=== PATIENT | male | born 1935 | race Caucasian/White ===

== ENCOUNTER → 2020-05-18 11:03 | Outpatient (BNVA) | payer MEDICARE, SELFPAY | PROVIDERS: Visit Provider Internal Medicine Gastroenterology | DX: K57.30 Diverticulosis of large intestine without perforation or abscess without bleeding (principal) | CPT/HCPCS: Q3014 ==

== ENCOUNTER 2021-06-19 13:24 | Outpatient (REF) | payer MEDICARE, SELFPAY ==
--- NOTE | 2021-06-20 08:19 | MHC.AU.ANO ---
Adult Audiological Evaluation Date of Visit: 06/19/21 Reason for Appointment: Patient has been experiencing hearing difficulty in most daily situations. He finds that he is asking for repetition more frequently. He suspects he may be ready for hearing aids. Does patient feel they have a hearing loss?: Yes If Yes, Which Ear?: Both Ears Ear History: Ear Deformity: None Reported Recent Ear Drainage: None Reported Recent Ear Pain: None Reported Recent Ear Infections: None Reported Ear Infections in Childhood: None Reported History of Ear Wax Buildup: None Reported Previous Ear Surgery: None Reported Bothersome Tinnitus/Ringing/Noises in Ears: None Reported Ear used on the phone: Left Ear Blocked/Full Sensation in Ear(s): None Reported History of occupational noise exposure?: Yes: [employer] History: No Medical History: Medical History: 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 Otoscopy: Right Ear: Unremarkable Left Ear: Unremarkable Hearing Evaluation: Transducer(s) Used: Insert Earphones Method: Conventional Audiometry Stimuli Used: Pure Tones Right Ear: Description of Hearing: Normal sloping to severe sensorineural hearing loss Left Ear: Description of Hearing: Normal sloping to severe sensorineural hearing loss Speech Recognition Threshold (SRT): Method Used: Recorded Lists Stimuli Used: Spondee Words Right Ear: 35 dBHL Left Ear: 30 dBHL Word Discrimination: Method: Recorded Lists Word Lists Used: W-22 Right Ear: 76% at 75 dBHL Left Ear: 60% at 75 dBHL Most Comfortable Level (MCL): Right Ear: 75 dBHL Left Ear: 75 dBHL Recommendations: Audiological re-evaluation in one year. Patient is interested in amplification. His current insurance likely offers a hearing aid benefit, but it cannot be used at our clinic at this time. It is recommended that he contact his insurance company to inquire about their hearing aid benefit program and find a participating clinic. Diagnosis: Primary Diagnosis: H90.3 Bilateral Sensorineural Hearing Loss Signature: Provider: Jordan Haddad, [facility]
== END 2021-06-19 13:25 | disposition home or self-care (01) ==
LOC: HO.SH 13:24
PROVIDERS: Visit Provider Internal Medicine
DX: H90.3 Sensorineural hearing loss, bilateral (principal)
CPT/HCPCS: 92557

== ENCOUNTER → 2021-09-11 14:58 | Outpatient (BNVA) | payer MEDICARE, SELFPAY | PROVIDERS: PCP Internal Medicine; Referring Provider Internal Medicine; Visit Provider Surgery | DX: K40.90 Unilateral inguinal hernia, without obstruction or gangrene, not specified as recurrent (principal) | CPT/HCPCS: 99202 ==

== ENCOUNTER 2023-01-26 08:44 | Inpatient (IN) | payer MEDICARE, SELFPAY ==
[2023-01-26] VITALS (8 sets, daily range): BP systolic 113–153; BP diastolic 52–85; PULSE 63–105; RESP 14–22; TEMP 36.6–37.9; O2SAT 93–96; BMI 28.6; BMI 24.6
--- NOTE | 2023-01-26 | ECG_ITS ---
Test Reason : FALL Blood Pressure : / mmHG Vent. Rate : 097 BPM Atrial Rate : 097 BPM P-R Int : 216 ms QRS Dur : 142 ms QT Int : 386 ms P-R-T Axes : 017 049 038 degrees QTc Int : 490 ms Sinus rhythm with 1st degree A-V block with Premature supraventricular complexes Right bundle branch block Abnormal ECG When compared with ECG of 18-FEB-2020 04:37, Premature ventricular complexes are no longer Present Premature supraventricular complexes are now Present Referred By: Generic ED Physician Electronically Signed By:JAMESON BAKER MD
--- NOTE | ~2023-01-26 | XR_ITS ---
EXAMINATION: XR CHEST CLINICAL INFORMATION: Weakness COMPARISON: September 2016. TECHNIQUE: 2 views of the chest were obtained. FINDINGS: There is an opacity noted in the right lower lobe appearing consistent with an infiltrate. There is linear atelectatic change at the right base appreciated more anteriorly. Pulmonary vascularity unremarkable. No distinct hilar adenopathy. Possible blunting in the posterior sulcus may reflect a small effusion. XR/XR chest 2V IMPRESSION: Right lower lobe infiltrate. Possible blunting in the posterior sulcus may reflect a small effusion. Linear atelectatic changes in the anterior right base.
[2023-01-26 09:34] LABS: MANUAL DIFF FLAG NO
[2023-01-26 09:37] LABS: Basophils Percent Auto 0.1 % (0-2); Hematocrit 47.1 % (42.0-52.0); Hemoglobin 16.3 g/dl (14.0-18.0); Imm Gran Abs Auto 0.03 X10*3/uL (0.00-0.03); Imm Gran Pct Auto 0.3 % (0.0-0.4); Lymphocytes Absolute Auto 0.5 X10*3/uL (1.2-4.9); Mean Corpuscular HGB Conc 34.6 g/dl (31.0-36.0); Mean Corpuscular Hemoglobin 31.4 pg (27.0-33.0); Mean Corpuscular Volume 90.8 fL (80.0-98.0); Mean Platelet Volume 10.8 fL (9.4-12.4); Monocytes Absolute Auto 0.8 X10*3/uL (0.1-1.2); Monocytes Percent Auto 8.6 % (2-11); Neutrophils Absolute Auto 7.7 x10*3/uL (2.0-8.3); Platelet Count 153 X10*3/uL (160-400); Red Blood Count 5.19 X10*6/uL (4.60-5.80); Red Cell Distribution Width 13.9 % (11.0-16.0); White Blood Count 9.1 X10*3/uL (4.8-10.8)
[2023-01-26 09:52] LABS: Alanine Aminotransferase 75 U/L (0-40); Albumin Level 4.3 g/dL (3.5-5.0); Alkaline Phosphatase 97 U/L (39-117); Anion Gap 15 (12-20); Aspartate Amino Transferase 50 U/L (5-37); Bilirubin Total 1.2 mg/dL (0.0-1.0); Blood Urea Nitrogen 46 mg/dL (9-16); Calcium 10.3 mg/dL (8.4-10.2); Carbon Dioxide 26 mmol/L (22-29); Chloride 109 mmol/L (96-108); Creatinine Clr Calc Pharmacy 25.8; Estimated Glomerular Filt Rate 35; Glucose Random 115 mg/dL (60-115); Potassium 4.1 mmol/L (3.3-5.1); Sodium 146 mmol/L (135-145); Total Protein 8.1 g/dL (6.5-8.0)
--- NOTE | 2023-01-26 10:19 | ED_ITS ---
HPI - Fall General Chief Complaint: Fall Stated Complaint: FALL, 4TH FALL THIS WEEK PER EMS Time Seen by Provider: 01/26/23 10:05 Source: patient and EMS Mode of arrival: EMS Limitations: no limitations History of Present Illness HPI Narrative: WEakness, patients neighbor found him on the floor complaint: fall Onset (ago): hour(s) Place fall occurred: home Loss of consciousness: none Related Data Home Medications Medication Instructions Recorded Confirmed aspirin 81 mg tablet,delayed 81 mg PO DAILY 09/11/21 09/11/21 release atorvastatin 80 mg tablet 80 mg PO DAILY 09/11/21 09/11/21 docusate sodium 100 mg capsule 100 mg PO BID 09/11/21 09/11/21 (Colace) multivitamin with folic acid 400 1 tab PO DAILY 09/11/21 09/11/21 mcg tablet (Tab-A-Severo) omega 1-vfk-vhq-fish oil 500 mg 1 cap PO DAILY 09/11/21 09/11/21 (200mg-300mg)-1,000 mg capsule omeprazole 20 mg capsule,delayed 20 mg PO BID 09/11/21 09/11/21 release Allergies Allergy/AdvReac Type Severity Reaction Status Date / Time No Known Allergies Allergy Unknown unknown Verified 01/26/23 08:55 [NO KNOWN ALLERGIES] Review of Systems Review of Systems: Yes all other systems are reviewed and are negative Neurologic: Denies Sensory deficit (Neuro) [facility] Past Medical History Medical History History of CVA (cerebrovascular accident) Right inguinal hernia Surgical History History of colonoscopy Hx of cholecystectomy Family History Family History Father No problems noted. Mother No problems noted. Social History Social History Alcohol intake: never Smoked in Last 30 Days: No Use of substances other than those prescribed or required for medical reasons: No Advance Directives: No Advance Directives Information Provided: No Physical Exam Vital Signs: Vital Signs: Last Vital Signs Temp 98.4 F 01/26/23 11:14 Pulse 92 01/26/23 11:14 Resp 20 01/26/23 11:14 BP 145/73 H 01/26/23 11:14 Pulse Ox 94 01/26/23 11:14 O2 Del Method Room Air 01/26/23 11:14 BMI result Body Mass Index 28.6 Const: Other: thin frail elderly male appearing very dry Orientation/consciousness: oriented to person Limitations: no limitations HEENT: Other: very dry oral mucosa Head: Yes normal to inspection Ears: external ears normal General nose exam: Normal external nose present Throat: Yes posterior oropharynx normal Eyes: General: appearance normal, both eyes and all related structures Neck: Other: supple Neck: Yes normal visual inspection Chest: Chest palpation & inspection: normal inspection of the chest Resp: Auscultation: clear to auscultation bilaterally Cardio: Jugular venous distension: no JVD Rate: regular rate Rhythm: regular rhythm Heart sounds: S1 normal heart sound present and S2 normal heart sound present GI: Inspection: Yes normal to inspection Palpation (GI): Soft to palpation, nontender and No hepatosplenomegaly present Auscultation: normal bowel sounds : General: Yes no CVA tenderness Back/Spine/Pelvis: Back: no CVA tenderness Skin: General skin exam: no rashes or lesions noted Neuro: General: oriented to person Cranial nerves: Yes CN's II-XII intact bilaterally Motor exam (neuro): 5/5 motor strength present throughout Sensory Exam: No Sensory deficit (Neuro) Extrem: General: Yes normal to inspection Psych: Appearance: grossly normal Course Reevaluation(s) Reevaluation #1: patient with pneumonia, renal failure, dehydration. Will admit Time: 11:34 Reevaluation #2: I spent 40 minutes of critical care, with interventions, assessments, speaking to patient, consultants, and family. Time: 11:34 Medications Administered Generic Name Dose Route Start Last Admin Trade Name Freq PRN Reason Stop Dose Admin Sodium Chloride 1,000 mls @ 999 mls/hr 01/26/23 10:30 01/26/23 11:20 Ns IVCONT 01/26/23 12:30 999 mls/hr .Q1H1M [facility] Administration Medical Decision Making Differential Diagnosis Differential Diagnoses: The differential diagnosis associated with the presentation includes (dehydration, rhabdomyolysis, renal failure, pneumonia were all considered) Admission/Observation Consideration of admission/observation: Escalation of care including admission/observation considered (upon arrival this patient who is 87, frail found on floor was immediate considered for admission.) Consult Healthcare Provider Management of the patient was discussed with: Hospitalist Lab Data MDM Lab Attestation statement: I reviewed the patient's lab results. (significant for normal WBC, hemoconcentration, renal failure, elevated CPK, and sodium of 146) 01/26/23 09:29 01/26/23 09:29 Labs: Lab Results 01/26/23 01/26/23 Range/Units 09:29 09:29 WBC 9.1 (4.8-10.8) X10*3/uL RBC 5.19 (4.60-5.80) X10*6/uL Hgb 16.3 (14.0-18.0) g/dl Hct 47.1 (42.0-52.0) % MCV 90.8 (80.0-98.0) fL MCH 31.4 (27.0-33.0) pg MCHC 34.6 (31.0-36.0) g/dl RDW 13.9 (11.0-16.0) % Plt Count 153 L (160-400) X10*3/uL MPV 10.8 (9.4-12.4) fL Immature Gran % (Auto) 0.3 (0.0-0.4) % Neut % (Auto) 85.0 H (45-73) % Lymph % (Auto) 6.0 L (20-40) % [place] % (Auto) 8.6 (2-11) % Eos % (Auto) 0.0 (0-4) % Baso % (Auto) 0.1 (0-2) % Lymph # (Auto) 0.5 L (1.2-4.9) X10*3/uL [place] # (Auto) 0.8 (0.1-1.2) X10*3/uL Eos # (Auto) 0.0 (0.0-0.4) X10*3/uL Baso # (Auto) 0.0 (0.0-0.2) X10*3/uL Abs Immat Gran (auto) 0.03 (0.00-0.03) X10*3/uL Absolute Neuts (auto) 7.7 (2.0-8.3) x10*3/uL Absolute Nucleated RBC 0.000 (0.0-0.012) X10*3/uL Nucleated RBC % (auto) 0.0 (0.0-0.2) /100WBC Sodium 146 H (135-145) mmol/L Potassium 4.1 (3.3-5.1) mmol/L Chloride 109 H (96-108) mmol/L Carbon Dioxide 26 (22-29) mmol/L Anion Gap 15 (12-20) BUN 46 H (9-16) mg/dL Creatinine 1.84 H (0.5-1.4) mg/dL Estim Creat Clear Calc 25.8 Estimated GFR 35 Random Glucose 115 (60-115) mg/dL Calcium 10.3 H (8.4-10.2) mg/dL Total Bilirubin 1.2 H (0.0-1.0) mg/dL AST 50 H (5-37) U/L ALT 75 H (0-40) U/L Alkaline Phosphatase 97 (39-117) U/L Total Creatine Kinase 403 H (38-174) U/L Total Protein 8.1 H (6.5-8.0) g/dL Albumin 4.3 (3.5-5.0) g/dL Independent Interpretation I performed an independent interpretation of an: Plain X-Ray (CXR: RLL infiltrate) Independent Historian Clinical information obtained from an independent historian. History obtained from or confirmed by: EMS Chronic Conditions Patient?s care impacted by: Other (elderly and frail) Discharge Plan Discharge Clinical Impression: Acute dehydration, Acute renal failure, Pneumonia Patient Disposition: Admitted As Inpatient Prescriptions: No Action multivitamin with folic acid [Tab-A-Severo] 400 mcg tablet 1 tab PO DAILY aspirin 81 mg tablet,delayed release (DR/EC) 81 mg PO DAILY atorvastatin 80 mg tablet 80 mg PO DAILY docusate sodium [Colace] 100 mg capsule 100 mg PO BID omeprazole 20 mg capsule,delayed release(DR/EC) 20 mg PO BID omega 0-yjc-yag-fish oil 500-1,000 mg capsule 1 cap PO DAILY
[2023-01-26] MEDS: 0.9 % Sodium Chloride 1,000 ML 999 ML IVCONT ×2 (10:25→11:20)
--- NOTE | 2023-01-26 10:48 | PC.NURSE ---
Pt returned from imagining, currently speaking with son on phone. call guerrero with in reach.
--- NOTE | 2023-01-26 11:15 | PC.NURSE ---
continues to deny any complaints, vss. resting quietly in room watching tb
[2023-01-26] MEDS: cefTRIAXone sodium 1 GM in 0.9 % Sodium Chloride 50 ML IV (11:59)
[2023-01-26] MEDS: Azithromycin 500 MG in 0.9 % Sodium Chloride 250 ML 125 MG IV (12:31)
--- NOTE | 2023-01-26 12:45 | PC.NURSE ---
ambulated to bathroom using walker and one assist with slow steady gait. son at bedside.
[2023-01-26 13:06] LABS: Appearance Urine Clear; Color Urine Dark Yellow; Glucose Urine UA Negative (Negative); Leukocyte Esterase Urine Negative (Negative); Nitrite Urine Negative (Negative); PH 5.5 (5.0-9.0); Specific Gravity - Urine 1.025 (1.005-1.025); UMIC TRIGGER UACC YES; Urine Blood Small (1+) (Negative); Urine Ketones 15 mg/dL (Negative); Urine Protein 100 (2+) mg/dL (Neg-Trace)
--- NOTE | 2023-01-26 13:08 | PHA.MEDREC ---
Pharmacy Consult ? Medication Reconciliation Pharmacy has completed the medication reconciliation. spoke with patient and confirmed medications.
[2023-01-26 13:15] LABS: Bacteria Urine None Seen (None Seen); Granular Casts Urine Present; WBC Urine 0-5 /HPF (0-5)
--- NOTE | 2023-01-26 13:34 | P.HPHOSP_ITS ---
The patient was seen and evaluated with EWA Smith. I agree with her note, assessment and plan with the following. In summary, An 87 years old male with PMH of CVA w Lt side hemiparesis who presents to the hospital after fall. found to be septic 2/2 Pneumonia as seen on CXR associated with Rhabdomyolysis. Sepsis 2/2 CAP. treated with IV Abx pending cultures SAMUEL 2/2 Rhabdo. IV fluids. monitor CK, BMP Rest of evaluations by ENERGY EFFICIENCY SPECIALIST note. History of Present Illness Date of Service: 01/26/23 Attending physician on admission: Carlos Riddle Chief Complaint: falls, weakness 87-year-old male with history of CVA with left sided hemiparesis as sequela of stroke and hyperlipidemia presents to the ED earlier today via EMS after sustaining a fall. The patient reports over the last week, he has had increased weakness in the lower extremities, primarily left lower extremity. He ambulates with a walker at baseline and uses furniture to assist with ambulation but over the last several days has had 3 falls. No head injury, not on blood thinners. No LOC. This morning he reports the left leg gave out from under him and he fell. He is unsure of how long he was on the ground for but states it was not a long period and his neighbor assisted him to his feet. He does live by himself though his son who is in the room reports that they are considering assisted living. He does also endorse a nonproductive cough that has been going on for about 1 week but denies any associated shortness of breath, fevers, chills, chest pain. On arrival, patient mildly tachycardic to 101, tachypneic to 22, elevated temperature of 100.2 degrees, vitals otherwise stable. No hypoxia. There is no leukocytosis. Creatinine 1.84, last known creatinine 0.68 from 3 years ago. BUN 46. Sodium 146, potassium 4.1, chloride 109, CO2 26 LFTs slightly elevated with AST 50, ALT 75, total bilirubin 1.2. Total creatinine kinase 401. Urinalysis unremarkable overall. Chest x-ray shows right lower lobe infiltrate and possible blunting in the posterior sulcus with linear atelectatic changes in the anterior right base. EKG shows sinus rhythm with first-degree AV olu block with PVCs, rate 97, and RBBB, no other ST/T-wave abnormality. In the ED, given IV rocephin and zithromax as well as 2L IVF. Review of Systems Review of Systems: General: No fevers, malaise, unintentional weight loss HEENT: No blurred vision, diplopia. No sore throat, nasal congestion, rhinorrhea, sinus pain, ear pain Cardiovascular: No chest pain, palpitations, or leg edema Respiratory: +cough. No shortness of breath, wheezing GI: No abdominal pain, nausea, vomiting, diarrhea, constipation, melena, hematochezia : No dysuria, hematuria, increased urinary frequency, decreased urinary output MSK: No myalgia, back pain. +falls Neuro: No headaches, paresthesias. +LE weakness Skin: No rashes or lesions [facility] Medical History History of CVA (cerebrovascular accident) Hyperlipemia Right inguinal hernia Family History Father No problems noted. Mother No problems noted. Surgical History History of colonoscopy Hx of cholecystectomy Social History Alcohol intake: never Smoked in Last 30 Days: No Use of substances other than those prescribed or required for medical reasons: No Advance Directives: No Advance Directives Information Provided: No Meds Allergies Allergy/AdvReac Type Severity Reaction Status Date / Time No Known Allergies Allergy Unknown unknown Verified 01/26/23 08:55 [NO KNOWN ALLERGIES] Active Medications: Current Medications Acetaminophen (Acetaminophen 325 Mg Tablet) 650 mg PO Q6H PRN PRN Reason: Pain, Mild (Pain Scale 1-3) Aspirin (Aspirin Enteric Coated 81 Mg Tablet.Dr) 81 mg PO DAILY [facility] Docusate Sodium (Docusate Sodium 100 Mg Capsule) 100 mg PO DAILY PRN PRN Reason: Constipation Heparin Sodium (Porcine) (Heparin Sodium,Porcine 5,000 Unit/Ml Vial) 5,000 unit SUBCUT Q12H [facility] Multivitamins/Vitamin C (Multivitamin Tablet) 1 tab PO DAILY [facility] Ondansetron HCl (Ondansetron Hcl 4 Mg/2 Ml Vial) 4 mg IVPUSH Q8H PRN PRN Reason: Nausea and Vomiting Pharmacy Consult (Consult Rx Perform Med Rec) 1 each MISCELLANE ONCE PRN PRN Reason: Consult order Sodium Chloride (0.9 % Sodium Chloride Flush 3 Ml Syringe) [facility] Medications Medication Instructions Recorded Confirmed Last Taken Type aspirin 81 mg tablet,delayed 81 mg PO DAILY 09/11/21 01/26/23 Unknown History release atorvastatin 80 mg tablet 80 mg PO DAILY 09/11/21 01/26/23 Unknown History multivitamin 1 tab PO DAILY 01/26/23 01/26/23 Unknown History Physical Exam Vital Signs and Narrative: Vital Signs: Last Vital Signs Temp 98.4 F 01/26/23 11:14 Pulse 92 01/26/23 11:14 Resp 20 01/26/23 11:14 BP 145/73 H 01/26/23 11:14 Pulse Ox 94 01/26/23 11:14 O2 Del Method Room Air 01/26/23 11:14 BMI result Body Mass Index 28.6 Constitutional - Awake and Alert, No apparent distress Eyes - PERRLA, EOMI Cardiovascular - S1S2, RRR, No edema Respiratory - Normal lung expansion, Normal respiratory effort, No respiratory distress, rhonchi rll Gastrointestinal - NT / ND; +BS; No rebound or guarding Extremities - no calf tenderness bilaterally, no swelling Skin - Warm/Dry Neurological - Alert & oriented x3, CN II-XII in tact, 5/5 strength BUE and RLE. 3/5 strength LLE Psychological - Appropriate affect Results Labs 01/26/23 09:29 01/26/23 09:29 Labs: Laboratory Results - last 24 hr 01/26/23 01/26/23 01/26/23 09:29 09:29 13:00 MCV 90.8 MCH 31.4 MCHC 34.6 RDW 13.9 Plt Count 153 L MPV 10.8 Immature Gran % (Auto) 0.3 Neut % (Auto) 85.0 H Lymph % (Auto) 6.0 L [place] % (Auto) 8.6 Eos % (Auto) 0.0 Baso % (Auto) 0.1 Lymph # (Auto) 0.5 L [place] # (Auto) 0.8 Eos # (Auto) 0.0 Baso # (Auto) 0.0 Abs Immat Gran (auto) 0.03 Absolute Neuts (auto) 7.7 Absolute Nucleated RBC 0.000 Nucleated RBC % (auto) 0.0 Anion Gap 15 Estim Creat Clear Calc 25.8 Estimated GFR 35 Random Glucose 115 Calcium 10.3 H Total Bilirubin 1.2 H AST 50 H ALT 75 H Alkaline Phosphatase 97 Total Creatine Kinase 403 H Total Protein 8.1 H Albumin 4.3 Urine Color Dark Yellow Urine Appearance Clear Urine pH 5.5 Ur Specific Palmer 1.025 Urine Protein 100 (2+) H Urine Glucose (UA) Negative Urine Ketones 15 Urine Blood Small (1+) H Urine Nitrite Negative Ur Leukocyte Esterase Negative Urine RBC 11-20 H Urine WBC 0-5 Ur Squamous Epith Cells 6-10 Urine Bacteria None Seen Hyaline Casts 11-20 Granular Casts Present Imaging Radiologist's Impressions: Impressions Chest X-Ray 01/26/23 10:45 IMPRESSION: Right lower lobe infiltrate. Possible blunting in the posterior sulcus may reflect a small effusion. Linear atelectatic changes in the anterior right base. 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 and hyperlipidemia to be admitted for acute pneumonia with SAMUEL #Acute RLL pneumonia with sepsis -tachycardic to 101, tachypneic to 22. No leukocytosis. SAMUEL likely r/t hypovolemia, not severe sepsis. No hypotension -IV ceftriaxone and azithromycin -symptomatic management -strep pneumo and legionella ag pending -Follow CBC, BC #Acute kidney injury- likely prerenal due to dehydration -Creat 1.84, BUN 46 -Given 2L IVF in ED -Encourage PO fluids -Avoid nephrotoxins -Follow BMP #Elevated CK- due to fall -2/2 fall, not consistent with rhabdo -Given 2L IVF -Follow CK #Falls -likely 2/2 weakness due to infection -no head injury, no loc -pt eval dvt prophylaxis-heparin DNR/DNI Patient requires inpatient stay at least 2 midnights for management of acute pneumonia with SAMUEL requiring IV antibiotics and IV fluid resuscitation as well as PT evaluation for probable placement to short-term rehab Time Spent With Patient Time: Total time managing care of this patient today ____ minutes. Quality Stroke Does the patient have a stroke diagnosis?: No VTE Prior VTE?: No VTE Risk Level:: Medical - moderate - high VTE Device Contraindication: Treatment Not Indicated VTE Drug Contraindication: N/A - Med Ordered
[2023-01-26] MEDS: Heparin Sodium,Porcine 5,000 UNIT/ML VIAL 5000 UNIT SUBCUT (15:20)
[2023-01-26] MEDS: 0.9 % Sodium Chloride Flush 3 ML SYRINGE IVFLUSH (15:21)
--- NOTE | 2023-01-26 19:03 | PC.NURSE ---
Assumed care at 16:15. Patient alert and oriented x4. Standed and pivoted to the bed from the stretcher. Patient with rash over whole body, reports it is psoriasis. Reports it has been itchy and painful. Creams ordered and not here yet from pharmacy.
--- NOTE | 2023-01-26 19:09 | PC.NURSE ---
Care assumed at 16:30, patient ambulated to BR with two assistants. Patient is confused, only oriented to self and place. Patient unsteady on feet. Cooperative with care.
[2023-01-27] VITALS (8 sets, daily range): BP systolic 121–160; BP diastolic 59–92; PULSE 74–92; RESP 16–22; TEMP 35.9–36.9; O2SAT 93–97
[2023-01-27] MEDS: 0.9 % Sodium Chloride Flush 3 ML SYRINGE IVFLUSH ×3 (00:23→15:51)
[2023-01-27] MEDS: Heparin Sodium,Porcine 5,000 UNIT/ML VIAL 5000 UNIT SUBCUT ×2 (00:24→12:23)
[2023-01-27 07:19] LABS: MANUAL DIFF FLAG NO
[2023-01-27 07:30] LABS: Basophils Percent Auto 0.2 % (0-2); Hematocrit 42.8 % (42.0-52.0); Hemoglobin 14.1 g/dl (14.0-18.0); Imm Gran Abs Auto 0.02 X10*3/uL (0.00-0.03); Imm Gran Pct Auto 0.3 % (0.0-0.4); Lymphocytes Absolute Auto 0.6 X10*3/uL (1.2-4.9); Lymphocytes Percent Auto 9.4 % (20-40); Mean Corpuscular HGB Conc 32.9 g/dl (31.0-36.0); Mean Corpuscular Hemoglobin 30.5 pg (27.0-33.0); Mean Corpuscular Volume 92.6 fL (80.0-98.0); Mean Platelet Volume 11.2 fL (9.4-12.4); Monocytes Absolute Auto 0.5 X10*3/uL (0.1-1.2); Monocytes Percent Auto 7.3 % (2-11); Neutrophils Absolute Auto 5.2 x10*3/uL (2.0-8.3); Neutrophils Percent Auto 82.8 % (45-73); Platelet Count 112 X10*3/uL (160-400); Red Blood Count 4.62 X10*6/uL (4.60-5.80); Red Cell Distribution Width 13.8 % (11.0-16.0); White Blood Count 6.3 X10*3/uL (4.8-10.8)
[2023-01-27] MEDS: Acetaminophen 325 MG TABLET 650 MG PO (07:34)
[2023-01-27] MEDS: Multivitamin TABLET 1 TAB PO (07:36)
[2023-01-27 08:23] LABS: Anion Gap 12 (12-20)
[2023-01-27 08:29] LABS: Blood Urea Nitrogen 35 mg/dL (9-16); Calcium 9.1 mg/dL (8.4-10.2); Carbon Dioxide 23 mmol/L (22-29); Chloride 115 mmol/L (96-108); Creatinine Clr Calc Pharmacy 45.8; Estimated Glomerular Filt Rate > 60; Glucose Random 76 mg/dL (60-115); Potassium 3.7 mmol/L (3.3-5.1); Sodium 146 mmol/L (135-145)
--- NOTE | 2023-01-27 09:42 | MHC.CM.PN ---
IMM 01/27. Pt admitted with pneumonia, SAMUEL, falls. Pt lives with his son, uses a walker. D/C plan to return home with son with new VNA vs STR. Pts son to transport. Copy of HCP requested. Pt does not know the name of his PCP. Pt states he was vax'd for covid.
--- NOTE | 2023-01-27 11:05 | MHC.CLN ---
RE: CONSULT FOR POOR PO PT REPORTS HIS APPETITE IS SO-SO NO PREVIOUS WT HX TO REVIEW PT REPORTS HIS UBW 145# WT 63KG AND 73KG BOTH RECORDED ON 01/26/23 PT NEEDS RE-WEIGHT BUT UNABLE TO OBTAIN PT WAS SITTING IN CHAIR AT BEDSIDE UPON INTERVIEW PT DOES NOT APPEAR EMACIATED OR CACHEXIA PER NURSING ADMISSION ASSESSMENT-BMI WNL DIET RX: REGULAR-APPROPRIATE PT RECEPTIVE TO DRINKING STRAWBERRY ENSURE-WILL ADD OBTAIN RE-WEIGHT
[2023-01-27] MEDS: cefTRIAXone sodium 1 GM in 0.9 % Sodium Chloride 50 ML IV (12:19)
--- NOTE | 2023-01-27 15:15 | HO.PM.IMPN ---
Subjective Subjective Date of Service: 01/27/23 Interval History: Seen and evaluated Feels better reporting cough and dyspnea weaning down O2 Kidney function improving Review of Systems Review of Systems: Yes all other systems are reviewed and are negative Physical Exam Vital Signs: Vital Signs: Last Vital Signs Temp 97.0 F 01/27/23 11:06 Pulse 75 01/27/23 11:06 Resp 20 01/27/23 11:06 BP 121/59 L 01/27/23 11:06 Pulse Ox 94 01/27/23 11:06 O2 Del Method Room Air 01/27/23 11:06 BMI result Body Mass Index 24.6 Const: Other: Constitutional : Awake, interactive, not in distress Neck : Normal inspection, Supple Cardiovascular : RRR, no JVP, no lower extremity edema Respiratory : good bilateral air entry, has crackles lt base Gastrointestinal: soft, lax, Normal bowel sounds, Non tender Skin : Warm, Dry Neurological : Alert & oriented x2, left hemiparesis Objective Data Active Medications Acetaminophen (Acetaminophen 325 Mg Tablet) 650 mg PO Q6H PRN PRN Reason: Pain, Mild (Pain Scale 1-3) Last Admin: 01/27/23 07:34 Dose: 650 mg Documented By: RHIANNA Aspirin (Aspirin Enteric Coated 81 Mg Tablet.Dr) 81 mg PO DAILY [facility] Last Admin: 01/27/23 07:36 Dose: Not Given Documented By: RHIANNA Non-Admin Reason: Patient Refused Docusate Sodium (Docusate Sodium 100 Mg Capsule) 100 mg PO DAILY PRN PRN Reason: Constipation Guaifenesin (Guaifenesin 200 Mg/10 Ml 10 Ml Liquid) 10 ml PO Q6H PRN PRN Reason: Cough Heparin Sodium (Porcine) (Heparin Sodium,Porcine 5,000 Unit/Ml Vial) 5,000 unit SUBCUT Q12H [facility] Last Admin: 01/27/23 12:23 Dose: 5,000 unit Documented By: RHIANNA Ceftriaxone Sodium 1 gm/ (Sodium Chloride) 50 mls @ 100 mls/hr IV Q24H [facility] Last Infusion: 01/27/23 12:50 Dose: 0 mls/hr Documented By: RHIANNA Ibuprofen (Ibuprofen 200 Mg Tablet) 200 mg PO Q6H PRN PRN Reason: Pain, Moderate(Pain Scale 4-6) Multivitamins/Vitamin C (Multivitamin Tablet) 1 tab PO DAILY [facility] Last Admin: 01/27/23 07:36 Dose: 1 tab Documented By: RHIANNA Ondansetron HCl (Ondansetron Hcl 4 Mg/2 Ml Vial) 4 mg IVPUSH Q8H PRN PRN Reason: Nausea and Vomiting Pharmacy Consult (Consult Rx Perform Med Rec) 1 each MISCELLANE ONCE PRN PRN Reason: Consult order Sodium Chloride (0.9 % Sodium Chloride Flush 3 Ml Syringe) 3 ml IVFLUSH QSHIFT [facility] Last Admin: 01/27/23 07:36 Dose: 3 ml Documented By: RHIANNA Labs 01/27/23 06:37 01/27/23 06:37 Labs: Laboratory Results - last 24 hr 01/27/23 01/27/23 06:37 06:37 MCV 92.6 MCH 30.5 MCHC 32.9 RDW 13.8 Plt Count 112 L D MPV 11.2 Immature Gran % (Auto) 0.3 Neut % (Auto) 82.8 H Lymph % (Auto) 9.4 L Cache % (Auto) 7.3 Eos % (Auto) 0.0 Baso % (Auto) 0.2 Lymph # (Auto) 0.6 L Cache # (Auto) 0.5 Eos # (Auto) 0.0 Baso # (Auto) 0.0 Abs Immat Gran (auto) 0.02 Absolute Neuts (auto) 5.2 Absolute Nucleated RBC 0.000 Nucleated RBC % (auto) 0.0 Anion Gap 12 Estim Creat Clear Calc 45.8 Estimated GFR > 60 Random Glucose 76 Calcium 9.1 D Total Creatine Kinase 204 H Microbiology Microbiology Results: Microbiology 01/26/23 11:50 Blood Culture - Preliminary Blood - Venous No growth after 24 hours. 01/26/23 11:39 Blood Culture - Preliminary Blood - Venous No growth after 24 hours. 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 and hyperlipidemia to be admitted for acute pneumonia with SAMUEL # Sepsis 2/2 Acute RLL pneumonia Pending cultures IV ceftriaxone and azithromycin strep pneumo and legionella ag pending Follow CBC, BC #Acute kidney injury likely prerenal due to dehydration Creat improved to 0.9 Encourage PO fluids Avoid nephrotoxins Follow BMP # Hypernatremia 2/2 dehydration encourage PO intake follow BMP #Elevated CK due to fall trended down #Falls likely 2/2 weakness due to infection PT eval dvt prophylaxis-heparin DNR/DNI Patient requires inpatient stay overnight for management of acute pneumonia with SAMUEL requiring IV antibiotics and IV fluid resuscitation as well as PT evaluation for probable placement to short-term rehab Time Spent With Patient Time: Total time managing care of this patient today ____ minutes. Quality Stroke Does the patient have a stroke diagnosis?: No VTE Prior VTE?: No VTE Risk Level:: Medical - moderate - high VTE Device Contraindication: Treatment Not Indicated VTE Drug Contraindication: N/A - Med Ordered
[2023-01-27] MEDS: guaiFENesin 200 MG/10 ML 10 ML LIQUID PO (15:51)
[2023-01-28] MEDS: Heparin Sodium,Porcine 5,000 UNIT/ML VIAL 5000 UNIT SUBCUT ×2 (00:44→13:18)
[2023-01-28] MEDS: 0.9 % Sodium Chloride Flush 3 ML SYRINGE IVFLUSH ×2 (00:48→09:23)
[2023-01-28 03:33] VITALS: BP 154/72; PULSE 86; RESP 20; TEMP 36.1; O2SAT 93
[2023-01-28 07:24] LABS: Anion Gap 10 (12-20); Blood Urea Nitrogen 28 mg/dL (9-16); Calcium 8.9 mg/dL (8.4-10.2); Carbon Dioxide 23 mmol/L (22-29); Chloride 116 mmol/L (96-108); Creatinine Clr Calc Pharmacy 56.9; Estimated Glomerular Filt Rate > 60; Glucose Random 105 mg/dL (60-115); Potassium 3.2 mmol/L (3.3-5.1); Sodium 146 mmol/L (135-145)
[2023-01-28 07:42] VITALS: BP 159/74; PULSE 70; RESP 18; TEMP 36.6; O2SAT 94
[2023-01-28] MEDS: Potassium Chloride Packet 20 MEQ PACKET 40 MEQ PO (09:22)
[2023-01-28] MEDS: Multivitamin TABLET 1 TAB PO (09:23)
[2023-01-28] MEDS: Aspirin Enteric Coated 81 MG TABLET.DR PO (09:23)
[2023-01-28] MEDS: Dextrose 5 % 1,000 ML 125 ML IVCONT (09:24)
[2023-01-28 12:00] VITALS: BP 138/88; PULSE 68; RESP 18; TEMP 37.1; O2SAT 96
[2023-01-28] MEDS: cefTRIAXone sodium 1 GM in 0.9 % Sodium Chloride 50 ML IV (13:17)
--- NOTE | 2023-01-28 14:20 | P.PNIM_ITS ---
Subjective Subjective Date of Service: 01/28/23 Interval History: Seen and evaluated Feels better improving cough and dyspnea weaned down O2 Kidney function improving, having hypernatremia Review of Systems Review of Systems: Yes all other systems are reviewed and are negative Physical Exam Vital Signs: Vital Signs: Last Vital Signs Temp 98.8 F 01/28/23 12:00 Pulse 68 01/28/23 12:00 Resp 18 01/28/23 12:00 BP 138/88 01/28/23 12:00 Pulse Ox 96 01/28/23 12:00 O2 Del Method Room Air 01/28/23 12:00 BMI result Body Mass Index 24.6 Const: Other: Constitutional : Awake, interactive, not in distress Neck : Normal inspection, Supple Cardiovascular : RRR, no JVP, no lower extremity edema Respiratory : good bilateral air entry, has crackles lt base Gastrointestinal: soft, lax, Normal bowel sounds, Non tender Skin : Warm, Dry Neurological : Alert & oriented x2, left hemiparesis Objective Data Active Medications Acetaminophen (Acetaminophen 325 Mg Tablet) 650 mg PO Q6H PRN PRN Reason: Pain, Mild (Pain Scale 1-3) Last Admin: 01/27/23 07:34 Dose: 650 mg Documented By: RHIANNA Aspirin (Aspirin Enteric Coated 81 Mg Tablet.) 81 mg PO DAILY REPLACED BY [facility] Last Admin: 01/28/23 09:23 Dose: 81 mg Documented By: JORGE L Docusate Sodium (Docusate Sodium 100 Mg Capsule) 100 mg PO DAILY PRN PRN Reason: Constipation Guaifenesin (Guaifenesin 200 Mg/10 Ml 10 Ml Liquid) 10 ml PO Q6H PRN PRN Reason: Cough Last Admin: 01/27/23 15:51 Dose: 10 ml Documented By: RHIANNA Heparin Sodium (Porcine) (Heparin Sodium,Porcine 5,000 Unit/Ml Vial) 5,000 unit SUBCUT Q12H REPLACED BY [facility] Last Admin: 01/28/23 13:18 Dose: 5,000 unit Documented By: JORGE L Ceftriaxone Sodium 1 gm/ (Sodium Chloride) 50 mls @ 100 mls/hr IV Q24H REPLACED BY [facility] Last Infusion: 01/28/23 14:17 Dose: 0 mls/hr Documented By: JORGE L Dextrose (D5w) 1,000 mls @ 125 mls/hr IVCONT .Q8H REPLACED BY [facility] Stop: 01/28/23 15:59 Last Admin: 01/28/23 09:24 Dose: 125 mls/hr Documented By: JORGE L Ibuprofen (Ibuprofen 200 Mg Tablet) 200 mg PO Q6H PRN PRN Reason: Pain, Moderate(Pain Scale 4-6) Multivitamins/Vitamin C (Multivitamin Tablet) 1 tab PO DAILY [facility]PLAC[facility] Last Admin: 01/28/23 09:23 Dose: 1 tab Documented By: JORGE L Ondansetron HCl (Ondansetron Hcl 4 Mg/2 Ml Vial) 4 mg IVPUSH Q8H PRN PRN Reason: Nausea and Vomiting Pharmacy Consult (Consult Rx Perform Med Rec) 1 each MISCELLANE ONCE PRN PRN Reason: Consult order Sodium Chloride (0.9 % Sodium Chloride Flush 3 Ml Syringe) 3 ml IVFLUSH QSHIFT REPLACED BY [facility] Last Admin: 01/28/23 09:23 Dose: 3 ml Documented By: JORGE L Labs 01/27/23 06:37 01/28/23 06:10 Labs: Laboratory Results - last 24 hr 01/28/23 06:10 Anion Gap 10 L Estim Creat Clear Calc 56.9 Estimated GFR > 60 Random Glucose 105 Calcium 8.9 Microbiology Microbiology Results: Microbiology 01/26/23 11:50 Blood Culture - Preliminary Blood - Venous No growth after 48 hours. 01/26/23 11:39 Blood Culture - Preliminary Blood - Venous No growth after 48 hours. 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 and hyperlipidemia to be admitted for acute pneumonia with SAMUEL # Sepsis 2/2 Acute RLL pneumonia Pending cultures Continue IV ceftriaxone and azithromycin strep pneumo and legionella ag pending Follow WBCs #Acute kidney injury likely prerenal due to dehydration Creat improved to 0.9 Encourage PO fluids Avoid nephrotoxins Follow BMP # Hypernatremia 2/2 dehydration Start D5W encourage PO intake follow BMP #Elevated CK due to fall trended down #Falls likely 2/2 weakness due to infection PT eval dvt prophylaxis-heparin DNR/DNI Patient requires inpatient stay overnight for management of acute pneumonia with SAMUEL requiring IV antibiotics and IV fluid resuscitation as well as PT evaluation for probable placement to short-term rehab Time Spent With Patient Time: Total time managing care of this patient today ____ minutes. Quality Stroke Does the patient have a stroke diagnosis?: No VTE Prior VTE?: No VTE Risk Level:: Medical - moderate - high VTE Device Contraindication: Treatment Not Indicated VTE Drug Contraindication: N/A - Med Ordered
--- NOTE | 2023-01-28 14:21 | MHC.CM.PN ---
PT gurdeep recommends STR. The patient is interested in rehab at home. Patient lives lives by himself. Patients son provided facility preferences. Referrals have been sent. DP STR via BLS vs home w services. Patient will transport via BLS is dispo STR.
[2023-01-28 15:21] VITALS: BP 148/72; PULSE 71; RESP 20; TEMP 36.3; O2SAT 96
[2023-01-28 19:36] VITALS: BP 147/70; PULSE 75; RESP 16; TEMP 36.5; O2SAT 95
[2023-01-28 23:38] VITALS: BP 153/74; PULSE 75; RESP 18; TEMP 36.2; O2SAT 94
[2023-01-29] VITALS (7 sets, daily range): BP systolic 138–169; BP diastolic 65–75; PULSE 80–87; RESP 16–20; TEMP 36.1–37; O2SAT 93–96
[2023-01-29] MEDS: 0.9 % Sodium Chloride Flush 3 ML SYRINGE IVFLUSH ×3 (00:44→17:54)
[2023-01-29] MEDS: Heparin Sodium,Porcine 5,000 UNIT/ML VIAL 5000 UNIT SUBCUT ×2 (02:12→15:01)
[2023-01-29 06:59] LABS: Hematocrit 40.9 % (42.0-52.0); Hemoglobin 14.2 g/dl (14.0-18.0); Mean Corpuscular HGB Conc 34.7 g/dl (31.0-36.0); Mean Corpuscular Hemoglobin 30.8 pg (27.0-33.0); Mean Corpuscular Volume 88.7 fL (80.0-98.0); Mean Platelet Volume 10.5 fL (9.4-12.4); Platelet Count 143 X10*3/uL (160-400); Red Blood Count 4.61 X10*6/uL (4.60-5.80); Red Cell Distribution Width 13.3 % (11.0-16.0); White Blood Count 6.7 X10*3/uL (4.8-10.8)
[2023-01-29 07:06] LABS: Anion Gap 10 (12-20); Blood Urea Nitrogen 16 mg/dL (9-16); Calcium 8.6 mg/dL (8.4-10.2); Carbon Dioxide 22 mmol/L (22-29); Chloride 111 mmol/L (96-108); Creatinine Clr Calc Pharmacy 60.1; Estimated Glomerular Filt Rate > 60; Glucose Random 96 mg/dL (60-115); Potassium 3.3 mmol/L (3.3-5.1); Sodium 140 mmol/L (135-145)
[2023-01-29] MEDS: Multivitamin TABLET 1 TAB PO (08:40)
[2023-01-29] MEDS: Aspirin Enteric Coated 81 MG TABLET.DR PO (08:40)
[2023-01-29] MEDS: cefTRIAXone sodium 1 GM in 0.9 % Sodium Chloride 50 ML IV (12:34)
--- NOTE | 2023-01-29 15:31 | HO.PM.IMPN ---
Subjective Subjective Date of Service: 01/29/23 Interval History: Seen and evaluated Feels better Sodium corrected waiting placement at SNF weaned down O2 to room air Review of Systems Review of Systems: Yes all other systems are reviewed and are negative Physical Exam Vital Signs: Vital Signs: Last Vital Signs Temp 98.6 F 01/29/23 11:50 Pulse 80 01/29/23 14:04 Resp 16 01/29/23 11:50 BP 138/72 01/29/23 14:04 Pulse Ox 96 01/29/23 14:04 O2 Del Method Room Air 01/29/23 11:50 BMI result Body Mass Index 24.6 Const: Other: Constitutional : Awake, interactive, not in distress Neck : Normal inspection, Supple Cardiovascular : RRR, no JVP, no lower extremity edema Respiratory : good bilateral air entry, less crackles lt base Gastrointestinal: soft, lax, Normal bowel sounds, Non tender Skin : Warm, Dry Neurological : Alert & oriented x2, left hemiparesis Objective Data Active Medications Acetaminophen (Acetaminophen 325 Mg Tablet) 650 mg PO Q6H PRN PRN Reason: Pain, Mild (Pain Scale 1-3) Last Admin: 01/27/23 07:34 Dose: 650 mg Documented By: RHIANNA Aspirin (Aspirin Enteric Coated 81 Mg Tablet.Dr) 81 mg PO DAILY [facility] Last Admin: 01/29/23 08:40 Dose: 81 mg Documented By: CRISTELA Docusate Sodium (Docusate Sodium 100 Mg Capsule) 100 mg PO DAILY PRN PRN Reason: Constipation Guaifenesin (Guaifenesin 200 Mg/10 Ml 10 Ml Liquid) 10 ml PO Q6H PRN PRN Reason: Cough Last Admin: 01/27/23 15:51 Dose: 10 ml Documented By: RHIANNA Heparin Sodium (Porcine) (Heparin Sodium,Porcine 5,000 Unit/Ml Vial) 5,000 unit SUBCUT Q12H [facility] Last Admin: 01/29/23 02:12 Dose: 5,000 unit Documented By: ENZO Ceftriaxone Sodium 1 gm/ (Sodium Chloride) 50 mls @ 100 mls/hr IV Q24H [facility] Last Infusion: 01/29/23 13:46 Dose: 0 mls/hr Documented By: CRISTELA Ibuprofen (Ibuprofen 200 Mg Tablet) 200 mg PO Q6H PRN PRN Reason: Pain, Moderate(Pain Scale 4-6) Multivitamins/Vitamin C (Multivitamin Tablet) 1 tab PO DAILY [facility] Last Admin: 01/29/23 08:40 Dose: 1 tab Documented By: CRISTELA Ondansetron HCl (Ondansetron Hcl 4 Mg/2 Ml Vial) 4 mg IVPUSH Q8H PRN PRN Reason: Nausea and Vomiting Pharmacy Consult (Consult Rx Perform Med Rec) 1 each MISCELLANE ONCE PRN PRN Reason: Consult order Sodium Chloride (0.9 % Sodium Chloride Flush 3 Ml Syringe) 3 ml IVFLUSH QSHIFT [facility] Last Admin: 01/29/23 08:40 Dose: 3 ml Documented By: CRISTELA Labs 01/29/23 06:10 01/29/23 06:10 Labs: Laboratory Results - last 24 hr 01/29/23 01/29/23 06:10 06:10 MCV 88.7 MCH 30.8 MCHC 34.7 RDW 13.3 Plt Count 143 L D MPV 10.5 Absolute Nucleated RBC 0.000 Nucleated RBC % (auto) 0.0 Anion Gap 10 L Estim Creat Clear Calc 60.1 Estimated GFR > 60 Random Glucose 96 Calcium 8.6 Microbiology Microbiology Results: Microbiology 01/26/23 11:50 Blood Culture - Preliminary Blood - Venous No growth after 48 hours. 01/26/23 11:39 Blood Culture - Preliminary Blood - Venous No growth after 48 hours. 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 and hyperlipidemia to be admitted for acute pneumonia with SAMUEL # Sepsis 2/2 Acute RLL pneumonia Negative cultures Continue IV ceftriaxone and azithromycin strep pneumo and legionella ag pending Follow WBCs #Acute kidney injury likely prerenal due to dehydration Creat improved to 0.9 Encourage PO fluids Avoid nephrotoxins Follow BMP # Hypernatremia 2/2 dehydration back to normal, DC D5W encourage PO intake follow BMP #Elevated CK due to fall trended down #Falls likely 2/2 weakness due to infection PT eval dvt prophylaxis-heparin DNR/DNI Patient requires inpatient stay overnight for management of acute pneumonia with SAMUEL requiring IV antibiotics pending placement to short-term rehab Time Spent With Patient Time: Total time managing care of this patient today ____ minutes. Quality Stroke Does the patient have a stroke diagnosis?: No VTE Prior VTE?: No VTE Risk Level:: Medical - moderate - high VTE Device Contraindication: Treatment Not Indicated VTE Drug Contraindication: N/A - Med Ordered
--- NOTE | 2023-01-29 15:56 | MHC.CM.PN ---
IMM 01/27/23 Patient has a bed offer from [facility]. They are waiting for insurance authorization. No auth received today. Patient will dc tomorrow once auth obtained. He will transport via S.
[2023-01-30] MEDS: Heparin Sodium,Porcine 5,000 UNIT/ML VIAL 5000 UNIT SUBCUT ×2 (00:26→12:45)
[2023-01-30 03:11] VITALS: BP 155/70; PULSE 84; RESP 18; TEMP 36.6; O2SAT 94
[2023-01-30 07:14] VITALS: BP 131/62; PULSE 83; RESP 20; TEMP 36.6; O2SAT 93
[2023-01-30] MEDS: Aspirin Enteric Coated 81 MG TABLET.DR PO (08:22)
[2023-01-30] MEDS: Multivitamin TABLET 1 TAB PO (08:22)
[2023-01-30 08:59] VITALS: BP 131/62; PULSE 83; O2SAT 93
--- NOTE | 2023-01-30 10:29 | MHC.CM.PN ---
IMM 01/30/23 Patient is discharged today to [facility] for STR. He will transport via BLS. house furnishings supervisor is scheduled for 3pm.
--- NOTE | 2023-01-30 11:04 | PM.DS ---
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 The patient reports over the last week, he has had increased weakness in the lower extremities, primarily left lower extremity.? He ambulates with a walker at baseline and uses furniture to assist with ambulation but over the last several days has had 3 falls.? No head injury, not on blood thinners. No LOC. This morning he reports the left leg gave out from under him and he fell.? He is unsure of how long he was on the ground for but states it was not a long period and his neighbor assisted him to his feet.? He does live by himself though his son who is in the room reports that they are considering assisted living.? He does also endorse a nonproductive cough that has been going on for about 1 week but denies any associated shortness of breath, fevers, chills, chest pain.? On arrival, patient mildly tachycardic to 101, tachypneic to 22, elevated temperature of 100.2 degrees, vitals otherwise stable.? No hypoxia.? There is no leukocytosis.? Creatinine 1.84, last known creatinine 0.68 from 3 years ago.? BUN 46.? Sodium 146, potassium 4.1, chloride 109, CO2 26 LFTs slightly elevated with AST 50, ALT 75, total bilirubin 1.2.? Total creatinine kinase 401.? Urinalysis unremarkable overall.? Chest x-ray shows right lower lobe infiltrate and possible blunting in the posterior sulcus with linear atelectatic changes in the anterior right base.? EKG shows sinus rhythm with first-degree AV olu block with PVCs, rate 97, and RBBB, no other ST/T-wave abnormality. In the ED, given IV rocephin and zithromax as well as 2L IVF. 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 # patient admitted to medical floor with a diagnosis of Sepsis 2/2 Acute RLL pneumonia, treated with IV ceftriaxone and azithromycin blood cultures came back negative, WBC remained in normal range strep pneumo and legionella ag pending, take cough medication as needed. #Acute kidney injury likely prerenal due to dehydration, Creat improved to 0.9. # Hypernatremia 2/2 dehydration, treated with IV D5W with sodium normalized. #Elevated CK due to fall improved with fluids patient evaluated by Physical therapy they recommend short-term rehab due to poor safety awareness. # mild transaminitis, no abdominal pain tolerating diet, patient on Lipitor will hold Lipitor since LDL 57 recommend to check lipid profile in 4-6 weeks and resume low-dose Lipitor if noted to have elevated LDL and total cholesterol. Time Spent with Patient Time attestation: Total time managing care of this patient today ____ minutes. Discharge coordination time: Greater than 30 minutes Quality: Safe Use of Opioids Does Pt have an Active Cancer Diagnosis on the Problem List?: No Quality: Stroke Does the patient have a stroke diagnosis?: No Physical Exam Vital Signs: Vital Signs: Last Vital Signs Temp 97.8 F 01/30/23 07:14 Pulse 83 01/30/23 08:59 Resp 20 01/30/23 07:14 BP 131/62 01/30/23 08:59 Pulse Ox 93 01/30/23 08:59 O2 Del Method Room Air 01/30/23 07:14 BMI result Body Mass Index 24.6 Const: Other: Constitutional : A wake, interactive, not in distress N mick : Normal inspe ction, Supple Card iovascular : RRR, no JVD, no lower e xtremity edema Res piratory : good bi lateral air entry, ?no rhonchi Gastro intestinal:? soft, Normal bowel soun ds, Non tender Ski n : Warm, Dry Neur ological : Alert & oriented x2, left hemiparesis DS: Data Data Completed and Pending Labs on day of discharge: Preliminary micro results at discharge 01/26/23 11:50 Blood Culture - Preliminary Blood - Venous No growth after 48 hours. 08/14/23 11:39 Blood Culture - Preliminary Blood - Venous No growth after 48 hours. Discharge Plan Discharge Anticipated Discharge Date/Time: 01/30/23 10:56 Patient Disposition: Xfer SNF Discharge Diagnosis: Acute pneumonia Acute kidney injury Hypernatremia Mechanical fall Referrals: [facility] [Outside] - 1 Week Aydee Ferguson MD [Primary Care Provider] - 1 Week Discharge Medications: New guaifenesin 100 mg/5 mL Liquid 200 mg PO Q6H PRN (Reason: Cough) Qty: 473 0RF docusate sodium 100 mg Capsule 100 mg PO DAILY PRN (Reason: Constipation) Qty: 20 0RF cefuroxime axetil 500 mg tablet 500 mg PO Q12H Qty: 4 0RF Continued multivitamin Tablet 1 tab PO DAILY aspirin 81 mg tablet,delayed release (DR/EC) 81 mg PO DAILY Discontinued atorvastatin 80 mg tablet 80 mg PO DAILY Discharge Orders: Discharge Order (Routine); Ordered 01/30/23 Ordered By: Yovany Hartman Diet: Advance to usual diet Activity on Discharge: As tolerated Stand Alone Forms: Patient Portal Discharge page Care Plan Goals: Continue antibiotics Ceftin 500 mg 1 tablet twice daily for 2 more days Physical therapy recommends rehab since patient with decreased safety awareness, requires verbal cues. Lipitor discontinued please follow lipid profile in 4-6 weeks if noted to have elevated LDL start Lipitor Health Concerns: Ensure 1 can bid Plan of Treatment: Outpatient follow-up with primary care physician Assessment: As above
[2023-01-30 12:00] VITALS: BP 146/70; PULSE 81; RESP 20; TEMP 36.8; O2SAT 94
[2023-01-30] MEDS: cefTRIAXone sodium 1 GM in 0.9 % Sodium Chloride 50 ML IV (12:44)
[2023-01-30 18:03] LABS: Strep Pneumo Ag urine Not Detected (Not Detected)
[2023-02-04 04:28] LABS: Legionella Ag Urine Not Detected (Not Detected)
== END 2023-01-30 15:08 | disposition skilled nursing facility (03) | DRG 194 ==
LOC: HO.ED 11:41 → HO.EDOVER 13:35 → HO.IMC 19:23 → HO.S3 01-27 18:14
PROVIDERS: Student in an Organized Health Care Education/Training Program; Admitting Provider Physician Assistant; Emergency Provider Emergency Medicine; PCP Internal Medicine; Visit Provider Hospitalist
DX: J18.9 Pneumonia, unspecified organism (principal); E87.0 Hyperosmolality and hypernatremia; I69.354 Hemiplegia and hemiparesis following cerebral infarction affecting left non-dominant side; N17.9 Acute kidney failure, unspecified; M62.82 Rhabdomyolysis; R29.6 Repeated falls; Z91.81 History of falling; Z66 Do not resuscitate; E86.1 Hypovolemia; E86.0 Dehydration; Z87.891 Personal history of nicotine dependence; Z79.82 Long term (current) use of aspirin; Z79.899 Other long term (current) drug therapy
CPT/HCPCS: 36415; 71046; 80048; 80053; 81001; 82550; 85025; 85027; 87040; 87449; 87899; 93005; 97116; 97162; 97530; 99285; J0456; J0696; J1643

== ENCOUNTER → 2023-01-26 09:20 | Outpatient (BNV) | payer MEDICARE, SELFPAY | PROVIDERS: Admitting Provider Physician Assistant; Emergency Provider Emergency Medicine; Visit Provider Internal Medicine Cardiovascular Disease | DX: I44.0 Atrioventricular block, first degree (principal); R94.31 Abnormal electrocardiogram [ECG] [EKG] | CPT/HCPCS: 93010 ==

== ENCOUNTER → 2023-01-26 13:28 | Outpatient (BNV) | payer MEDICARE, SELFPAY | PROVIDERS: Admitting Provider Physician Assistant; Emergency Provider Emergency Medicine; Visit Provider Physician Assistant | DX: N17.9 Acute kidney failure, unspecified (principal); I69.354 Hemiplegia and hemiparesis following cerebral infarction affecting left non-dominant side; E86.0 Dehydration; J18.9 Pneumonia, unspecified organism | CPT/HCPCS: 99223; 99232; 99233; 99239 ==

== ENCOUNTER 2023-02-12 11:17 | Outpatient (REF) | payer MEDICARE, SELFPAY ==
[2023-02-12 14:19] LABS: MANUAL DIFF FLAG NO
[2023-02-12 14:21] LABS: Basophils Percent Auto 0.5 % (0-2); Eosinophils Absolute Auto 0.1 X10*3/uL (0.0-0.4); Eosinophils Percent Auto 1.7 % (0-4); Hematocrit 47.4 % (42.0-52.0); Hemoglobin 15.7 g/dl (14.0-18.0); Imm Gran Abs Auto 0.02 X10*3/uL (0.00-0.03); Imm Gran Pct Auto 0.3 % (0.0-0.4); Lymphocytes Absolute Auto 1.3 X10*3/uL (1.2-4.9); Lymphocytes Percent Auto 20.2 % (20-40); Mean Corpuscular HGB Conc 33.1 g/dl (31.0-36.0); Mean Corpuscular Hemoglobin 31.2 pg (27.0-33.0); Mean Platelet Volume 10.4 fL (9.4-12.4); Monocytes Absolute Auto 0.5 X10*3/uL (0.1-1.2); Monocytes Percent Auto 8.5 % (2-11); Neutrophils Absolute Auto 4.4 x10*3/uL (2.0-8.3); Neutrophils Percent Auto 68.8 % (45-73); Platelet Count 293 X10*3/uL (160-400); Red Blood Count 5.04 X10*6/uL (4.60-5.80); Red Cell Distribution Width 13.5 % (11.0-16.0); White Blood Count 6.4 X10*3/uL (4.8-10.8)
[2023-02-12 14:39] LABS: Alanine Aminotransferase 17 U/L (0-40); Alkaline Phosphatase 83 U/L (39-117); Anion Gap 11 (12-20); Aspartate Amino Transferase 21 U/L (5-37); Bilirubin Direct 0.2 mg/dL (0.0-0.5); Bilirubin Total 0.6 mg/dL (0.0-1.0); Blood Urea Nitrogen 10 mg/dL (9-16); Calcium 9.9 mg/dL (8.4-10.2); Carbon Dioxide 28 mmol/L (22-29); Chloride 105 mmol/L (96-108); Cholesterol 149 mg/dL (<200); Estimated Glomerular Filt Rate > 60; Glucose Fasting 96 mg/dL (60-99); HDL Cholesterol 54 mg/dL (>40); LDL Cholesterol Calculated 74 mg/dL (<100); Potassium 4.1 mmol/L (3.3-5.1); Sodium 140 mmol/L (135-145); Total Protein 7.4 g/dL (6.5-8.0); Triglycerides 108 mg/dL (<150)
== END 2023-02-12 11:18 | disposition home or self-care (01) ==
LOC: HO.CHCLDS 11:17
PROVIDERS: Visit Provider Internal Medicine
DX: N17.9 Acute kidney failure, unspecified (principal); R79.89 Other specified abnormal findings of blood chemistry
CPT/HCPCS: 36415; 80048; 80061; 80076; 85025

== ENCOUNTER 2023-02-26 09:12 | Outpatient (REF) | payer MEDICARE, SELFPAY ==
--- NOTE | ~2023-02-26 | XR_ITS ---
EXAMINATION: XR CHEST CLINICAL INFORMATION: History right lower lobe pneumonia COMPARISON: Chest radiograph from 01/26/2023 TECHNIQUE: 2 views of the chest were obtained. FINDINGS: Significantly improved right lower lung field radiopacity with a residual amount noted potentially representing atelectasis. Elevation of the right hemidiaphragm. No pneumothorax. Trachea is midline. Cardiac mediastinal silhouette is not enlarged. Aorta demonstrates tortuosity with atherosclerotic calcifications. No large pleural effusion. Degenerative changes of the thoracolumbar spine. Soft tissues are unremarkable. XR/XR chest 2V IMPRESSION: 1. Significantly improved right lower lung field radiopacity with a residual amount noted potentially representing atelectasis. 2. Elevation of the right hemidiaphragm.
== END 2023-02-26 09:13 | disposition home or self-care (01) ==
LOC: HO.HMGCX 09:12
PROVIDERS: PCP Internal Medicine; Visit Provider Internal Medicine
DX: J69.0 Pneumonitis due to inhalation of food and vomit (principal)
CPT/HCPCS: 71046

== ENCOUNTER 2023-03-27 14:44 | Emergency (ER) | payer MEDICARE, SELFPAY ==
--- NOTE | ~2023-03-27 | XR_ITS ---
EXAMINATION: XR CHEST CLINICAL INFORMATION: Recent pneumonia. COMPARISON: Chest x-ray 02/26/2023 TECHNIQUE: 2 views of the chest were obtained. FINDINGS: The lungs are well-expanded and clear of acute pneumonic process. The heart size and pulmonary vascularity is normal. No gross bony abnormality seen. XR/XR chest 2V IMPRESSION: Unremarkable chest exam. .
[2023-03-27 14:49] VITALS: BP 118/62; BP 135/61; PULSE 91; PULSE 94; RESP 18; TEMP 36.9; O2SAT 100; O2SAT 95; BMI 21.5
--- NOTE | 2023-03-27 15:02 | ED_ITS ---
HPI - Altered Mental Status General Chief Complaint: General Medical Stated Complaint: AMS LOWER BACK PAIN FALL YESTERDAY Time Seen by Provider: 03/27/23 15:00 Source: patient and family (son) Mode of arrival: EMS Limitations: altered mental status History of Present Illness HPI narrative: Patient fell and was on ground for a few hours until meals on wheels came. He had a pneumonia a few months ago. According to son he is more confused. Weakness. complaint: altered mental status Onset (ago): hour(s) Timing confirmed by: family member Severity: moderate Related Data Home Medications Medication Instructions Recorded Confirmed aspirin 81 mg tablet,delayed 81 mg PO DAILY 09/11/21 01/26/23 release multivitamin 1 tab PO DAILY 01/26/23 01/26/23 Previous Rx's Medication Instructions Recorded cefuroxime axetil 500 mg tablet 500 mg PO Q12H #4 tabs 01/30/23 docusate sodium 100 mg capsule 100 mg PO DAILY PRN Constipation 01/30/23 #20 caps guaifenesin 100 mg/5 mL oral liquid 200 mg (10 mL) PO Q6H PRN Cough 01/30/23 #473 mL levofloxacin 500 mg tablet 500 mg PO DAILY 7 days #7 tabs 03/27/23 Allergies Allergy/AdvReac Type Severity Reaction Status Date / Time No Known Allergies Allergy Unknown unknown Verified 01/26/23 08:55 [NO KNOWN ALLERGIES] Review of Systems 2 Review of Systems: Yes all other systems are reviewed and are negative [facility] Past Medical History Medical History Hyperlipemia Right inguinal hernia History of CVA (cerebrovascular accident) Surgical History Hx of cholecystectomy History of colonoscopy Family History Family History Father No problems noted. Mother No problems noted. Social History Social History Household Members: None Housing: House Do you presently have visiting nurse or other home services: No Alcohol intake: never Patient Tobacco Use Status: Former Tobacco user Tobacco use type: Cigarette Advance Directives: No Advance Directives Information Provided: No service: No Physical Exam ED Vital Signs: Vital Signs - 24 hr 03/27/23 14:49 03/27/23 17:28 03/27/23 20:29 Temperature 98.5 F 97.9 F 98.3 F Pulse Rate 94 100 76 Respiratory Rate 18 20 18 Blood Pressure 135/61 151/76 H 146/70 H Pulse Oximetry 95 95 98 Oxygen Delivery Method Room Air Room Air Room Air BMI result Body Mass Index 21.5 Course Reevaluation(s) Reevaluation #1: Patient looking better after hydration will dc home Time: 21:20 Reevaluation #2: xray does show right lower lobe infiltrate will give po levaquin. patient not hypoxic Time: 21:42 Medications Administered Discontinued Medications Generic Name Dose Route Start Last Admin Trade Name Freq PRN Reason Stop Dose Admin Sodium Chloride 1,000 mls @ 500 mls/hr 03/27/23 15:30 03/27/23 17:49 Ns IVCONT 03/27/23 17:29 Infused .Q2H [place] Infusion Medical Decision Making Differential Diagnosis Differential Diagnoses: The differential diagnosis associated with the presentation includes (Urinary tract infection, dehydration, renal failure, pneumonia were all considered) Admission/Observation Consideration of admission/observation: Escalation of care including admission/observation considered (upon arrival patient was considered for admission) Lab Data MDM Lab Attestation statement: I reviewed the patient's lab results. (BuN high consistent with dehydration, urine specific gravity high as well) 03/27/23 15:38 03/27/23 15:38 Labs: Lab Results 03/27/23 03/27/23 Range/Units 15:38 17:31 WBC 10.8 (4.8-10.8) X10*3/uL RBC 4.56 L (4.60-5.80) X10*6/uL Hgb 14.2 (14.0-18.0) g/dl Hct 41.5 L (42.0-52.0) % MCV 91.0 (80.0-98.0) fL MCH 31.1 (27.0-33.0) pg MCHC 34.2 (31.0-36.0) g/dl RDW 14.0 (11.0-16.0) % Plt Count 142 L D (160-400) X10*3/uL MPV 10.2 (9.4-12.4) fL Immature Gran % (Auto) 0.3 (0.0-0.4) % Neut % (Auto) 87.4 H (45-73) % Lymph % (Auto) 4.3 L (20-40) % [place] % (Auto) 7.9 (2-11) % Eos % (Auto) 0.0 (0-4) % Baso % (Auto) 0.1 (0-2) % Lymph # (Auto) 0.5 L (1.2-4.9) X10*3/uL [place] # (Auto) 0.9 (0.1-1.2) X10*3/uL Eos # (Auto) 0.0 (0.0-0.4) X10*3/uL Baso # (Auto) 0.0 (0.0-0.2) X10*3/uL Abs Immat Gran (auto) 0.03 (0.00-0.03) X10*3/uL Absolute Neuts (auto) 9.5 H (2.0-8.3) x10*3/uL Absolute Nucleated RBC 0.000 (0.0-0.012) X10*3/uL Nucleated RBC % (auto) 0.0 (0.0-0.2) /100WBC Sodium 141 (135-145) mmol/L Potassium 4.2 (3.3-5.1) mmol/L Chloride 108 (96-108) mmol/L Carbon Dioxide 23 (22-29) mmol/L Anion Gap 14 (12-20) BUN 23 H (9-16) mg/dL Creatinine 0.92 (0.5-1.4) mg/dL Estim Creat Clear Calc 52.3 Estimated GFR > 60 Random Glucose 114 (60-115) mg/dL Calcium 9.7 (8.4-10.2) mg/dL Total Bilirubin 1.1 H (0.0-1.0) mg/dL Direct Bilirubin 0.5 (0.0-0.5) mg/dL AST 35 (5-37) U/L ALT 23 (0-40) U/L Alkaline Phosphatase 67 (39-117) U/L Total Protein 6.7 (6.5-8.0) g/dL Albumin 3.7 (3.5-5.0) g/dL Urine Color Dark Yellow Urine Appearance Clear Urine pH 5.5 (5.0-9.0) Ur Specific [place] 1.025 (1.005-1.025) Urine Protein 30 (1+) H (Neg-Trace) mg/dL Urine Glucose (UA) Negative (Negative) mg/dL Urine Ketones 15 (Negative) mg/dL Urine Blood Negative (Negative) Urine Nitrite Negative (Negative) Ur Leukocyte Esterase Negative (Negative) Urine RBC 0-2 (0-2) /HPF Urine WBC 0-5 (0-5) /HPF Ur Squamous Epith Cells 0-2 (0-2) /HPF Urine Bacteria None Seen (None Seen) Hyaline Casts 3-5 (0-2) /LPF Independent Interpretation I performed an independent interpretation of an: Plain X-Ray (CXR: right lower lobe infiltrate) Independent Historian Clinical information obtained from an independent historian. History obtained from or confirmed by: Other (son) External Record Review External record reviewed: Inpatient record Chronic Conditions Patient?s care impacted by: Other (prior CVA) Discharge Plan Discharge Clinical Impression: Acute dehydration, Weakness, Pneumonia Patient Disposition: Home, Self-Care Instructions: Dehydration (ED) Prescriptions: New levofloxacin 500 mg tablet 500 mg PO DAILY 7 Days Qty: 7 0RF No Action multivitamin Tablet 1 tab PO DAILY guaifenesin 100 mg/5 mL Liquid 200 mg PO Q6H PRN (Reason: Cough) Qty: 473 0RF docusate sodium 100 mg Capsule 100 mg PO DAILY PRN (Reason: Constipation) Qty: 20 0RF cefuroxime axetil 500 mg tablet 500 mg PO Q12H Qty: 4 0RF aspirin 81 mg tablet,delayed release (DR/EC) 81 mg PO DAILY Referrals: Aydee Ferguson MD [Primary Care Provider] - 5 days
[2023-03-27] MEDS: 0.9 % Sodium Chloride 1,000 ML 500 ML IVCONT (15:39)
--- NOTE | 2023-03-27 15:40 | PC.NURSE ---
IV inserted, 20L AC. Labs drawn. fluids running per AUG. vitals stable. urine sample pending. see triage note
[2023-03-27 15:46] LABS: MANUAL DIFF FLAG NO
[2023-03-27 15:51] LABS: Basophils Percent Auto 0.1 % (0-2); Hematocrit 41.5 % (42.0-52.0); Hemoglobin 14.2 g/dl (14.0-18.0); Imm Gran Abs Auto 0.03 X10*3/uL (0.00-0.03); Imm Gran Pct Auto 0.3 % (0.0-0.4); Lymphocytes Absolute Auto 0.5 X10*3/uL (1.2-4.9); Lymphocytes Percent Auto 4.3 % (20-40); Mean Corpuscular HGB Conc 34.2 g/dl (31.0-36.0); Mean Corpuscular Hemoglobin 31.1 pg (27.0-33.0); Mean Platelet Volume 10.2 fL (9.4-12.4); Monocytes Absolute Auto 0.9 X10*3/uL (0.1-1.2); Monocytes Percent Auto 7.9 % (2-11); Neutrophils Absolute Auto 9.5 x10*3/uL (2.0-8.3); Neutrophils Percent Auto 87.4 % (45-73); Platelet Count 142 X10*3/uL (160-400); Red Blood Count 4.56 X10*6/uL (4.60-5.80); White Blood Count 10.8 X10*3/uL (4.8-10.8)
[2023-03-27 16:03] LABS: Alanine Aminotransferase 23 U/L (0-40); Albumin Level 3.7 g/dL (3.5-5.0); Alkaline Phosphatase 67 U/L (39-117); Anion Gap 14 (12-20); Aspartate Amino Transferase 35 U/L (5-37); Bilirubin Direct 0.5 mg/dL (0.0-0.5); Bilirubin Total 1.1 mg/dL (0.0-1.0); Blood Urea Nitrogen 23 mg/dL (9-16); Calcium 9.7 mg/dL (8.4-10.2); Carbon Dioxide 23 mmol/L (22-29); Chloride 108 mmol/L (96-108); Creatinine Clr Calc Pharmacy 52.3; Estimated Glomerular Filt Rate > 60; Glucose Random 114 mg/dL (60-115); Potassium 4.2 mmol/L (3.3-5.1); Sodium 141 mmol/L (135-145); Total Protein 6.7 g/dL (6.5-8.0)
[2023-03-27 17:28] VITALS: BP 151/76; PULSE 100; RESP 20; TEMP 36.6; O2SAT 95
--- NOTE | 2023-03-27 17:30 | PC.NURSE ---
urine collected via bedside stand with urinal - pt unsteady on feet and needs stand by assist.
[2023-03-27 17:55] LABS: Appearance Urine Clear; Color Urine Dark Yellow; Glucose Urine UA Negative (Negative); Leukocyte Esterase Urine Negative (Negative); Nitrite Urine Negative (Negative); PH 5.5 (5.0-9.0); Specific Gravity - Urine 1.025 (1.005-1.025); UMIC TRIGGER UACC YES; Urine Blood Negative (Negative); Urine Ketones 15 mg/dL (Negative); Urine Protein 30 (1+) mg/dL (Neg-Trace)
[2023-03-27 18:10] LABS: Bacteria Urine None Seen (None Seen); RBC Urine 0-2 /HPF (0-2); Squamous Epithelial Cell Urine 0-2 /HPF (0-2); WBC Urine 0-5 /HPF (0-5)
--- NOTE | 2023-03-27 20:24 | MHC.EDTECH ---
Patient given ham sandwhich and water
[2023-03-27 20:29] VITALS: BP 146/70; PULSE 76; RESP 18; TEMP 36.8; O2SAT 98
--- NOTE | 2023-03-27 21:49 | PC.NURSE ---
LVM to pts sonLance, as pt is ready to be discharged.
[2023-03-27] MEDS: levoFLOXacin 500 MG TABLET PO (21:57)
--- NOTE | 2023-03-27 23:58 | PC.NURSE ---
TC with pts son Lance, who states will come and roll picker pt as pt is ready to be discharged.
[2023-03-28 00:18] VITALS: BP 132/62; PULSE 90; RESP 16; TEMP 35.9; O2SAT 96
[2023-03-28 05:04] VITALS: BP 114/54; PULSE 87; RESP 12; TEMP 36.5; O2SAT 94
--- NOTE | 2023-03-28 05:08 | HO.SKINPHOTO ---
Barrier cream applied to the area. MD notified. Location: Right lower gluteal Category: Ulcer Stage: 2
--- NOTE | 2023-03-28 05:43 | PC.NURSE ---
LVM to pts son regarding pt being discharged.
[2023-03-28 06:14] VITALS: BP 140/65; PULSE 86; RESP 6; TEMP 36.9; O2SAT 94
--- NOTE | 2023-03-28 06:40 | PC.NURSE ---
another attempt to reach son to p/u pt. no answer
--- NOTE | 2023-03-28 09:05 | PC.NURSE ---
patient son and nephew came to pick patient up, d/c instructions explained to jenifer (son).
== END 2023-03-28 09:06 | disposition home or self-care (01) ==
PROVIDERS: Emergency Medicine; Emergency Provider Emergency Medicine Emergency Medical Services; PCP Internal Medicine
DX: J18.9 Pneumonia, unspecified organism (principal); E86.0 Dehydration; R53.1 Weakness; L89.329 Pressure ulcer of left buttock, unspecified stage; E78.5 Hyperlipidemia, unspecified; Z87.891 Personal history of nicotine dependence; Z86.73 Personal history of transient ischemic attack (TIA), and cerebral infarction without residual deficits; Z79.82 Long term (current) use of aspirin; Z79.899 Other long term (current) drug therapy
CPT/HCPCS: 36415; 71046; 80048; 80076; 81001; 85025; 96360; 96361; 99284

== ENCOUNTER 2023-10-26 10:14 | Outpatient (REF) | payer MEDICARE, SELFPAY ==
[2023-10-26 14:34] LABS: MANUAL DIFF FLAG NO
[2023-10-26 14:43] LABS: Basophils Percent Auto 0.3 % (0-2); Eosinophils Absolute Auto 0.2 X10*3/uL (0.0-0.4); Eosinophils Percent Auto 3.4 % (0-4); Hematocrit 44.6 % (42.0-52.0); Hemoglobin 15.2 g/dl (14.0-18.0); Imm Gran Abs Auto 0.01 X10*3/uL (0.00-0.03); Imm Gran Pct Auto 0.2 % (0.0-0.4); Lymphocytes Absolute Auto 1.4 X10*3/uL (1.2-4.9); Lymphocytes Percent Auto 23.5 % (20-40); Mean Corpuscular HGB Conc 34.1 g/dl (31.0-36.0); Mean Corpuscular Hemoglobin 31.3 pg (27.0-33.0); Mean Platelet Volume 10.6 fL (9.4-12.4); Monocytes Absolute Auto 0.4 X10*3/uL (0.1-1.2); Monocytes Percent Auto 6.7 % (2-11); Neutrophils Absolute Auto 3.8 x10*3/uL (2.0-8.3); Neutrophils Percent Auto 65.9 % (45-73); Platelet Count 170 X10*3/uL (160-400); Red Blood Count 4.85 X10*6/uL (4.60-5.80); Red Cell Distribution Width 13.4 % (11.0-16.0); White Blood Count 5.8 X10*3/uL (4.8-10.8)
[2023-10-26 15:08] LABS: Alanine Aminotransferase 10 U/L (0-40); Albumin Level 3.9 g/dL (3.5-5.0); Alkaline Phosphatase 50 U/L (39-117); Anion Gap 14 (12-20); Aspartate Amino Transferase 17 U/L (5-37); Bilirubin Total 0.5 mg/dL (0.0-1.0); Blood Urea Nitrogen 13 mg/dL (9-16); Calcium 9.4 mg/dL (8.4-10.2); Carbon Dioxide 26 mmol/L (22-29); Chloride 107 mmol/L (96-108); Cholesterol 163 mg/dL (<200); Estimated Glomerular Filt Rate > 60; Glucose Random 121 mg/dL (60-115); HDL Cholesterol 55 mg/dL (>40); LDL Cholesterol Calculated 92 mg/dL (<100); Potassium 3.8 mmol/L (3.3-5.1); Sodium 143 mmol/L (135-145); Triglycerides 82 mg/dL (<150)
[2023-10-26 15:30] LABS: TSH reflex Free T4 2.79 uIU/mL (0.32-4.0)
[2023-10-29 05:59] LABS: Zinc 54 mcg/dL (60-130)
[2023-11-01 16:54] LABS: IGF-1 (Somatomedin C) 90 ng/mL (34-246); IGF-1 Z Score (Male) -0.2 SD (-2.0 - +2.0)
== END 2023-10-26 10:15 | disposition home or self-care (01) ==
LOC: HO.CHCLDS 10:14
PROVIDERS: Visit Provider Internal Medicine
DX: R63.4 Abnormal weight loss (principal); Z86.73 Personal history of transient ischemic attack (TIA), and cerebral infarction without residual deficits
CPT/HCPCS: 36415; 80053; 80061; 84134; 84305; 84443; 84630; 85025

== ENCOUNTER 2024-05-23 12:16 | Emergency (ER) | payer MEDICARE, SELFPAY ==
--- NOTE | ~2024-05-23 | CT_ITS ---
EXAMINATION: CT HEAD WITHOUT CONTRAST CT CERVICAL SPINE WITHOUT CONTRAST CLINICAL INFORMATION: Fall. Pain. COMPARISON: None available. TECHNIQUE: Contiguous axial imaging was performed from the skull base to vertex without intravenous administration of contrast. Contiguous axial CT images of the cervical spine were obtained without contrast. Sagittal and coronal reformats were provided and reviewed. This CT examination was performed using dose optimization techniques as appropriate, variously including the following: *Automated exposure control *Adjustment of mA and/or kV according to patient size (this includes techniques or standardized protocols for targeted exams where dose is matched to indication/reason for exam; i.e. extremities or head) *Use of iterative reconstruction technique DLP: 1105 mGy-cm FINDINGS: HEAD: There is no evidence of acute intracranial hemorrhage or territorial infarction. No abnormal mass effect or midline shift is seen. Galvan to white matter differentiation is well preserved. No extra-axial fluid collections are identified. Prominence of the ventricles and sulci, consistent with diffuse atrophy. Hypoattenuation of the periventricular white matter. The osseous structures and soft tissues are normal. The mastoid air cells and visualized portions of the paranasal sinuses are well aerated. CERVICAL SPINE: Cervical lordosis is maintained. Minimal grade 1 anterolisthesis of C4 on C5 and C5 on C6. No acute fracture or subluxation. No loss of vertebral body height. Loss of intervertebral disc height with endplate degenerative changes, most severe at C6-C7. Severe multilevel bilateral facet arthropathy. No lytic or blastic osseous lesion. Unremarkable prevertebral soft tissues. No abnormal soft tissue mass or fluid collection. Thyroid within normal limits. Visualized lung apices are clear. [id number] multilevel bilateral neural foraminal stenosis. CT/CT cervical spine wo IV con IMPRESSION: HEAD: No acute intracranial hemorrhage or mass effect. Diffuse atrophy and chronic microvascular ischemic disease. CERVICAL SPINE: No acute fracture or subluxation. Minimal grade 1 anterolisthesis of C4 on C5 and C5 on C6. Multilevel degenerative disc disease and bilateral facet arthropathy with mild to moderate multilevel bilateral neural foraminal stenosis. Electronically signed by: Jhonatan Storey MD 05/23/2024 05:06 PM [facility] [place] Workstation: -[id number]
--- NOTE | ~2024-05-23 | CT_ITS ---
EXAMINATION: CT HEAD WITHOUT CONTRAST CT CERVICAL SPINE WITHOUT CONTRAST CLINICAL INFORMATION: Fall. Pain. COMPARISON: None available. TECHNIQUE: Contiguous axial imaging was performed from the skull base to vertex without intravenous administration of contrast. Contiguous axial CT images of the cervical spine were obtained without contrast. Sagittal and coronal reformats were provided and reviewed. This CT examination was performed using dose optimization techniques as appropriate, variously including the following: *Automated exposure control *Adjustment of mA and/or kV according to patient size (this includes techniques or standardized protocols for targeted exams where dose is matched to indication/reason for exam; i.e. extremities or head) *Use of iterative reconstruction technique DLP: 1105 mGy-cm FINDINGS: HEAD: There is no evidence of acute intracranial hemorrhage or territorial infarction. No abnormal mass effect or midline shift is seen. Galvan to white matter differentiation is well preserved. No extra-axial fluid collections are identified. Prominence of the ventricles and sulci, consistent with diffuse atrophy. Hypoattenuation of the periventricular white matter. The osseous structures and soft tissues are normal. The mastoid air cells and visualized portions of the paranasal sinuses are well aerated. CERVICAL SPINE: Cervical lordosis is maintained. Minimal grade 1 anterolisthesis of C4 on C5 and C5 on C6. No acute fracture or subluxation. No loss of vertebral body height. Loss of intervertebral disc height with endplate degenerative changes, most severe at C6-C7. Severe multilevel bilateral facet arthropathy. No lytic or blastic osseous lesion. Unremarkable prevertebral soft tissues. No abnormal soft tissue mass or fluid collection. Thyroid within normal limits. Visualized lung apices are clear. [id number] multilevel bilateral neural foraminal stenosis. CT/CT head/brain wo IV con IMPRESSION: HEAD: No acute intracranial hemorrhage or mass effect. Diffuse atrophy and chronic microvascular ischemic disease. CERVICAL SPINE: No acute fracture or subluxation. Minimal grade 1 anterolisthesis of C4 on C5 and C5 on C6. Multilevel degenerative disc disease and bilateral facet arthropathy with mild to moderate multilevel bilateral neural foraminal stenosis. Electronically signed by: Jhonatan Storey MD 05/23/2024 05:06 PM [facility] [place] Workstation: [id number]
[2024-05-23 12:34] VITALS: BP 148/70; PULSE 82; O2SAT 96
--- NOTE | 2024-05-23 12:35 | PC.NURSE ---
Ride home will be [facility] [phone]
[2024-05-23 12:52] VITALS: BP 158/66; PULSE 70; RESP 16; TEMP 36.9; O2SAT 97; BMI 22.6
[2024-05-23 12:54] VITALS: RESP 16; O2SAT 97
[2024-05-23 14:29] VITALS: BP 143/84; PULSE 76; RESP 16; O2SAT 98
--- NOTE | 2024-05-23 15:22 | PC.NURSE ---
No acute changes, pt to and from CT scan without issue
--- NOTE | 2024-05-23 15:53 | ED.FALL ---
HPI - Fall General Chief Complaint: Fall Stated Complaint: [facility] FALL THURSDAY,HEAD LAC,-THIN,LLE WEAK PER EMS Time Seen by Provider: 05/23/24 15:52 Source: patient, EMS and old records reviewed Mode of arrival: EMS Limitations: no limitations History of Present Illness ED Provider: MIN VELARDE Narrative: 88 yo male with PMH of pneumonia, CVA not on thinners, longstanding use of cane and recurrent issues with L leg giving out was putting his groceries away when his leg gave out and he hit his head against the wall. No LOC. no prolonged dowtime has no complaints other than avulsion flap on the scalp. he reports no trunk or ext injury. he had no prolonged downtime MD complaint: fall Onset (ago): hour(s) ([employer]) Fall from: standing Fall witnessed: no Place fall occurred: home Loss of consciousness: none Prolonged down time: no Symptoms prior to fall: none Context: tripped/slipped Location of injury: head Severity: mild Associated symptoms (after fall): denies Related Data Home Medications ?Medication ?Instructions ?Recorded ?Confirmed aspirin 81 mg tablet,delayed 81 mg PO DAILY 09/11/21 01/26/23 release multivitamin 1 tab PO DAILY 01/26/23 01/26/23 Previous Rx's ?Medication ?Instructions ?Recorded cefuroxime axetil 500 mg tablet 500 mg PO Q12H #4 tabs 01/30/23 docusate sodium 100 mg capsule 100 mg PO DAILY PRN Constipation 01/30/23 #20 caps guaifenesin 100 mg/5 mL oral liquid 200 mg (10 mL) PO Q6H PRN Cough 01/30/23 #473 mL levofloxacin 500 mg tablet 500 mg PO DAILY 7 days #7 tabs 03/27/23 Allergies Allergy/AdvReac Type Severity Reaction Status Date / Time No Known Allergies Allergy Unknown unknown Verified 05/23/24 12:53 [NO KNOWN ALLERGIES] Review of Systems Review of Systems: Constitutional : No Fever, No Chills, No Fatigue ENT/Mouth : No sore throat, No Rhinorrhea Eyes: No Eye Pain, No Swelling, No Redness Cardiovascular : No Chest Pain, No SOB, No Dyspnea on Exertion Respiratory : No Cough, No Sputum Gastrointestinal : No Nausea, No Vomiting, No Diarrhea, No abdominal Pain Genitourinary : No Dysuria, No Urinary Frequency, No Hematuria, Musculoskeletal : No joint pain, No Myalgias, No Joint Swelling Skin : No Skin Lesions, No rash, pos laceration Neuro : No Weakness, No Numbness, No Dizziness, no Headache All other systems reviewed and are negative [facility] Past Medical History Attestation statement: The following information was validated with the patient. Source: old records reviewed Medical History Hyperlipemia Right inguinal hernia History of CVA (cerebrovascular accident) Surgical History Hx of cholecystectomy History of colonoscopy Family History Family History Father No problems noted. Mother No problems noted. Social History Social History Household Members: None Housing: House Do you presently have visiting nurse or other home services: No Alcohol intake: never Patient Tobacco Use Status: Former Tobacco user Tobacco use type: Cigarette Smoked in Last 30 Days: No Use of substances other than those prescribed or required for medical reasons: No Advance Directives: No Advance Directives Information Provided: Yes service: No Physical Exam Vital Signs: Vital Signs: Last Vital Signs Temp 98.4 F 05/23/24 12:52 Pulse 76 05/23/24 14:29 Resp 16 05/23/24 14:29 BP 143/84 H 05/23/24 14:29 Pulse Ox 98 05/23/24 14:29 O2 Del Method Room Air 05/23/24 14:29 BMI result Body Mass Index 22.6 Appearance: Alert. Oriented X3. No acute distress. Eyes: Pupils equal, round and reactive to light. ENT: Pharynx normal. top of L scalp small 2cm superficial avulsion flap noted no subq exposed Neck: Normal inspection. Neck supple. CVS: Normal heart rate and rhythm. Pulses normal. Respiratory: No respiratory distress. Breath sounds normal. Abdomen: Soft and nontender. Skin: Skin warm and dry. Normal skin color. Normal skin turgor. Extremities: No lower extremity edema. No calf ttp Neuro: Oriented X 3. No motor deficit. No sensory deficit. Procedures Laceration Laceration 1: Site: scalp Side (If applicable): left Size (cm): 2 Description: linear Depth: simple, single layer Pre-repair: wound explored, irrigated extensively and deep structures intact Skin layer closed with: other (exofin) Medical Decision Making Medical Decision Making MDM Narrative: 88 yo male with PMH of pneumonia, CVA not on thinners, HLD, and longstanding use of cane and recurrent issues with L leg giving out now here with mechanical trip and fall hit head on wall. He is GCS 15 denies LOC, no prolonged downtime. At this time CT head and Cspine ordered given avulsion area will repair with exofin. Differential Diagnosis Differential Diagnoses: The differential diagnosis associated with the presentation includes head trauma, laceration, abrasion Admission/Observation Consideration of admission/observation: Escalation of care including admission/observation considered GCS 15 steady gait with walker stable for DC Independent Interpretation I performed an independent interpretation of an: CT Scan (no trauma) Radiology Impression Discussion of test interpretation with radiology: I have reviewed the radiologist's reading. Independent Historian Clinical information obtained from an independent historian. History obtained from or confirmed by: EMS External Record Review External record reviewed: Outpatient record Discharge Plan Discharge Clinical Impression: Head injury Qualifiers: Encounter type: initial encounter Qualified Code(s): S09.90XA - Unspecified injury of head, initial encounter Laceration of scalp Qualifiers: Encounter type: initial encounter Qualified Code(s): S01.01XA - Laceration without foreign body of scalp, initial encounter Patient Disposition: Home, Self-Care Instructions: Head Injury (ED), Laceration (ED), Skin Adhesive Care (ED) Additional Instructions: okay to wash area in 48 hours monitor for redness, swelling, yellow drainage or fevers please return any time for vomiting, severe headaches, confusion CT/CT head/brain wo IV con IMPRESSION: HEAD: No acute intracranial hemorrhage or mass effect. Diffuse atrophy and chronic microvascular ischemic disease. CERVICAL SPINE: No acute fracture or subluxation. Minimal grade 1 anterolisthesis of C4 on C5 and C5 on C6. Multilevel degenerative disc disease and bilateral facet arthropathy with mild to moderate multilevel bilateral neural foraminal stenosis. Prescriptions: No Action multivitamin Tablet 1 tab PO DAILY guaifenesin 100 mg/5 mL Liquid 200 mg PO Q6H PRN (Reason: Cough) Qty: 473 0RF docusate sodium 100 mg Capsule 100 mg PO DAILY PRN (Reason: Constipation) Qty: 20 0RF cefuroxime axetil 500 mg tablet 500 mg PO Q12H Qty: 4 0RF levofloxacin 500 mg tablet 500 mg PO DAILY 7 Days Qty: 7 0RF aspirin 81 mg tablet,delayed release (DR/EC) 81 mg PO DAILY Print Language: Serbian
[2024-05-23 18:49] VITALS: BP 156/87; PULSE 84; RESP 16; TEMP -17.7; TEMP 0; O2SAT 95
--- OUTSIDE RECORDS SUMMARY | 2024-05-25 15:56 | XMS_ITS | Continuity of Care Document ---
Author Organization [facility] Address [address] [place] [address] Phone Care Team Providers Care Typesetting Supervisor Name Role Phone Unavailable Unavailable Unavailable Medications Medication Instructions Dosage Effective Dates (start - stop) Status Comments Nystatin 100,000 unit/g Topical Cream - Active Procedures Procedure Date PULSE OXIMETRY PULSE OXIMETRY PULSE OXIMETRY Advance Directives Directive Yes / No Effective Date File Name No Information Encounters Encounter Description Practice Location Reason(s) For Visit Diagnoses Date Provider Providers Copied on Encounter [facility], [address], [place], [place], [id number], [place] tel:[phone] Noteworthy Legacy Data Routine general medical examination at a health care facilityHematur iaLaboratory examinationLabo ratory examinationNEED FOR PROPHYLACTIC VACCINATION AND INOCULATION, INFLUENZANEED FOR PROPHYLACTIC VACCINATION AND INOCULATION, INFLUENZARash and other nonspecific skin eruptionActinic keratosisCerebr al atherosclerosis Laboratory examinationHYPE RTROPHY (BENIGN) OF PROSTATEOther ill-defined cerebrovascular diseaseUnspecif ied transient cerebral ischemiaHypopot assemiaOther and unspecified hyperlipidemiaO ther and unspecified hyperlipidemiaO ther and unspecified hyperlipidemiaM ixed hyperlipidemiaH ematuria 1 No Information Family History Family Member Type Diagnosis Age At Onset No Information Immunizations Vaccine Date Status Comments Fluzone, 45mcg/.5ml (vial) administered S ource: Source Unspecified INFLUENZA VACCINE (>36 MO) administered S ource: Source Unspecified Payers Payer name Insurance type Covered libertarian ID Authoriza tion(s) No Information Social History Type Description Quantity Date Captured Comments Sex Male Smoking Status No Information Vital Signs Date / Time: Height Weight BMI Pulse Rate Blood Pressure Temperature Respiratory Rate Body Surface Area Head Circumference Head Circ. Percentile Wt./Wilmer. Percentile BMI percentile Pulse Ox Inhaled Ox 10:25 AM 97.50 F 10:11 AM 167.60 cm 69.600 kg 24.7 0 kg/m eter (2) 66 /min 120/68 mm[Hg] 98.70 F 16 /min 10:07 AM 167.60 cm 56.500 kg 20.1 0 kg/m eter (2) 72 /min 122/70 mm[Hg] 96.90 F 16 /min 4:31 PM 97.10 F 12:57 PM 69.900 kg 69 /min 145/81 mm[Hg] 97.00 F 11:29 AM 69.900 kg 74 /min 133/78 mm[Hg] 97.50 F 4:31 PM 69.900 kg 94 /min 149/78 mm[Hg] 97.50 F 9:51 AM 67.600 kg 70 /min 120/73 mm[Hg] 96.00 F Chief Complaint And Reason For Visit No Information Reason For Referral Reason For Referral No Information History Of Present Illness Encounter Date Complaint History Of Prese nt Illness No Information Functional Status Date Functional Assessmen t No Information Instructions Date Instruction Additional Infor mation No Information Assessments Type Assessment Date No Information Patient Care Teams Name Effective Dates (start - stop) Status Members No Information
== END 2024-05-23 18:50 | disposition home or self-care (01) ==
PROVIDERS: Emergency Provider Emergency Medicine; PCP Internal Medicine
DX: S01.01XA Laceration without foreign body of scalp, initial encounter (principal); R51.9 Headache, unspecified; M54.2 Cervicalgia; M79.605 Pain in left leg; W19.XXXA Unspecified fall, initial encounter; Y93.89 Activity, other specified; Y92.89 Other specified places as the place of occurrence of the external cause; Y99.8 Other external cause status; Z86.73 Personal history of transient ischemic attack (TIA), and cerebral infarction without residual deficits; Z79.899 Other long term (current) drug therapy; Z87.891 Personal history of nicotine dependence
CPT/HCPCS: 12031; 70450; 72125; 99284

== ENCOUNTER 2025-03-24 09:15 | Inpatient (IN) | payer MEDICARE, SELFPAY ==
[2025-03-24] VITALS (11 sets, daily range): BP systolic 122–172; BP diastolic 59–84; PULSE 60–106; RESP 12–20; TEMP 36.2–37.1; O2SAT 88–99; BMI 25.6; BMI 21.0; BMI 21.3
--- NOTE | ~2025-03-24 | US_ITS ---
EXAMINATION: US TRIPLEX LOWER EXTREMITY, LEFT CLINICAL INFORMATION: Pain and swelling COMPARISON: None available. TECHNIQUE: Color-flow triplex imaging with spectral analysis and compression Doppler were performed on the left lower extremity. FINDINGS: Respiratory variation, normal compression and augmented flow are noted throughout the left lower extremity. The visualized common femoral vein, superficial femoral vein, profunda femoral vein, popliteal vein and midcalf peroneal and posterior tibial venous segments show no evidence of deep venous thrombosis. There is no Cruz's cyst. Dedicated arterial vascular ultrasound not performed. There is severe atherosclerotic disease with vessel wall calcification. The left common femoral artery is patent. No flow is seen in the left superficial femoral artery. US/US venous duplex LE LT IMPRESSION: No evidence of deep venous thrombosis involving the left lower extremity. Severe atherosclerotic disease. No flow is seen in the left superficial femoral artery. Consider further evaluation with lower extremity arterial ultrasound or CTA if clinically warranted. Electronically signed by: Soraida Faulkner MD 03/24/2025 12:13 PM EDT
--- NOTE | ~2025-03-24 | CT_ITS ---
EXAMINATION: CT HEAD WITHOUT CONTRAST CLINICAL INFORMATION: Found lying on ground, altered mental status,? Head trauma. COMPARISON: 05/23/2024, 05/12/2018. TECHNIQUE: Contiguous axial imaging was performed from the skull base to vertex without intravenous administration of contrast. This CT examination was performed using dose optimization techniques as appropriate, variously including the following: *Automated exposure control *Adjustment of mA and/or kV according to patient size (this includes techniques or standardized protocols for targeted exams where dose is matched to indication/reason for exam; i.e. extremities or head) *Use of iterative reconstruction technique FINDINGS: There is no evidence of intracranial hemorrhage or extra-axial fluid collection. There is no mass effect, or edema. No CT evidence of acute territorial infarct. Ventricles, sulci, and cisterns are somewhat diffusely prominent, in keeping with age related cerebral and cerebellar involutional changes. No hydrocephalus. No midline shift. Negative hyperdense MCA sign. Negative insular ribbon sign. Patchy periventricular and deep white matter hypoattenuation is consistent with moderate to severe small vessel ischemic changes. 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 Empty sella present. Atheromatous calcification of the bilateral carotid siphons and V4 segments vertebral arteries bilaterally. Globes and orbital contents image normally. There are bilateral lens replacements. No extracranial soft tissue abnormalities. Moderate scattered mucosal thickening is present throughout the ethmoid sinuses and extending into the frontal recesses bilaterally. Mild to moderate colonic thickening is present in the right maxillary sinus. No air-fluid levels evident. The mastoid air cells and tympanic cavities are normally aerated. No suspicious bony abnormalities. There are no acute fractures evident. Degenerative changes of the bilateral TM joints present. CT/CT head/brain wo IV con IMPRESSION: 1. No acute intracranial abnormality. No fracture evident. 2. Largely stable chronic changes as discussed. Electronically signed by: Cash Miranda MD 03/24/2025 12:58 PM EDT
--- NOTE | ~2025-03-24 | CT_ITS ---
EXAMINATION: CT CHEST WITH IV CONTRAST, CT ABDOMEN PELVIS WITH IV CONTRAST INDICATION: fall chest trauma COMPARISON: Comparison is made with the prior CT of the abdomen dated 02/18/2020.. TECHNIQUE: CT scan of the chest, abdomen and pelvis was performed following administration of 85 mL Omnipaque 350 using standard departmental protocol. Coronal and sagittal reformatted images were generated and reviewed. Oral contrast material was not administered at the request of the referring physician. This CT exam was performed with one or more of the following dose reduction techniques: automated exposure control, adjustment of the mA and/or kV according to patient size, use of iterative reconstruction technique. DLP: 772 mGy-cm CHEST: THYROID: The thyroid is unremarkable. LUNGS: There is mild to moderate emphysema. Dependent atelectasis bilaterally. No focal airspace opacities or suspicious pulmonary nodules are identified. MEDIASTINUM: There is no mediastinal lymphadenopathy. There is no mediastinal hematoma. JACQUELIN: There is no hilar lymphadenopathy. CARDIOVASCULATURE: The heart is normal in size. There is no pericardial effusion. The thoracic aorta is normal in caliber. DEGREE OF CORONARY CALCIFICATION: severe PLEURA: There is no pleural effusion. No pneumothorax. MAIN AIRWAYS: The mainstem bronchi and proximal branches are patent. AXILLA: There is no axillary lymphadenopathy. SOFT TISSUES: Unremarkable. BONES: The bones are intact. ABDOMEN: LIVER: The liver is normal in size and contour. No liver mass is identified. The hepatic and portal veins are patent. GALLBLADDER / BILE DUCTS: The gallbladder is surgically absent. There is no intra or extrahepatic biliary ductal dilatation. SPLEEN: The spleen is normal in size. There are punctate calcifications in the spleen consistent with old granulomatous disease.. PANCREAS: The pancreas is unremarkable in appearance. ADRENAL GLANDS: Within normal limits. KIDNEYS/RETROPERITONEUM: No renal calculi are identified. There is no hydronephrosis. No renal masses are identified. LYMPH NODES: No abdominal or pelvic lymphadenopathy. VASCULATURE: The abdominal aorta demonstrates atherosclerotic calcification, but is normal in caliber. MESENTERY/PERITONEUM: No free fluid. No masses. There is no free intraperitoneal gas. STOMACH: The stomach is collapsed, limiting evaluation. SMALL BOWEL: The small bowel is normal in caliber. COLON: There is extensive diverticulosis of the colon without evidence of diverticulitis. APPENDIX: Normal. URINARY BLADDER/PELVIC ORGANS: There is a 9 mm soft tissue nodule on the left lateral aspect of the urinary bladder, suspicious for neoplasm. There are calcifications of the prostate. BONES / SOFT TISSUES: There is degenerative disc disease of the spine. No fracture is identified. CT/CT abdomen pelvis w IV con IMPRESSION: 1. No evidence of traumatic injury to the chest, abdomen, or pelvis. 2. 9 mm soft tissue nodule along the left lateral aspect of the urinary bladder, suspicious for neoplasm. Further evaluation with cystoscopy is recommended. 3. Colonic diverticulosis without evidence of diverticulitis. 4. Because mild to moderate emphysema is an independent risk factor for lung cancer, consider entering the patient into a program of yearly lung cancer screening with low dose chest CT. Electronically signed by: Kory Lees MD 03/24/2025 01:02 PM EDT
--- NOTE | ~2025-03-24 | CT_ITS ---
EXAMINATION: CT CERVICAL SPINE WITHOUT IV CONTRAST HISTORY: fall neck pain. TECHNIQUE: Helical CT of the cervical spine was performed per standard departmental protocol. Coronal and sagittal reformatted images were also evaluated. One or more of the following techniques was used for dose reduction: Automated exposure control, adjustment of the mA and/or kV according to patient size, use of iterative reconstruction technique. DLP: 348 mGy-cm COMPARISON: Previous CT of the cervical spine May 2024 FINDINGS: CERVICAL SPINE: There is head tilt to the left. Bone alignment is otherwise normal. No fracture or dislocation. There is degenerative spondylosis and degenerative disc disease, greatest at C6-7. There are degenerative changes at the C1 dens articulation. There is bilateral multilevel facet arthritis. Calcification or ossification adjacent to the right C5-6 facet joint unchanged. BRAIN: The visualized portion of the brain is unremarkable. SINUSES: The visualized paranasal sinuses, mastoid air cells and middle ear cavities are unremarkable. LUNG APICES: The visualized lung apices are clear. SOFT TISSUES: Vertebral soft tissues are normal. There is bilateral carotid calcification. No thyroid nodule. CT/CT cervical spine wo IV con IMPRESSION: No evidence of fracture or malalignment of the cervical spine. Degenerative changes. Electronically signed by: Soraida Faulkner MD 03/24/2025 01:01 PM EDT
--- NOTE | 2025-03-24 09:19 | ECG_ITS ---
Test Reason : ams Blood Pressure : */* mmHG Vent. Rate : 96 BPM Atrial Rate : 96 BPM P-R Int : 226 ms QRS Dur : 128 ms QT Int : 374 ms P-R-T Axes : 42 -19 36 degrees QTcB Int : 472 ms Sinus rhythm with 1st degree A-V block Right bundle branch block Abnormal ECG When compared with ECG of 26-Jan-2023 09:20, Premature supraventricular complexes are no longer Present Questionable change in QRS axis Referred By: Mariama Valerio Electronically Signed By: JAMESON BAKER MD
--- NOTE | 2025-03-24 09:20 | ED_ITS ---
HPI - General Adult General Chief complaint: Altered Mental Status Stated complaint: AMS, found on floor, FTT Time Seen by Provider: 03/24/25 09:18 Source: patient and EMS Mode of arrival: EMS Limitations: altered mental status (Intermittently confused) History of Present Illness ED Provider: EWA Valerio HPI narrative: This is an 89-year-old male past medical history significant for CVA not on anticoagulation who presents to the emergency department with altered mental status with EMS. According to EMS a neighbor called 911 because his door was open and they had not seen the patient in a few days. When they got inside they found him half naked in the bathroom lying on the ground intermittently answering questions appropriately. He did not want to come in however they encouraged him to come in and be evaluated according to neighbors he was not acting himself and he seems ?out of it ?. Patient states he is fine and he wants to leave. He does not recall being on the bathroom floor he is only alert to person not place, time or situation. Difficult to obtain history and review of system on this patient. He denies chest pain, shortness of breath, nausea, vomiting, abdominal pain, headache, vision changes, dizziness and weakness. Patient denies being on blood thinners. However, poor historian Related Data Home Medications ?Medication ?Instructions ?Recorded ?Confirmed aspirin 81 mg tablet,delayed 81 mg PO DAILY 09/11/21 0 01/26/23 release multivitamin 1 tab PO DAILY 01/26/2301/13 Previous Rx's ?Medication ?Instructions ?Recorded cefuroxime axetil 500 mg tablet 500 mg PO Q12H #4 tabs 01/30/23 docusate sodium 100 mg capsule 100 mg PO DAILY PRN Con stipation 01/30/23 #20 caps guaifenesin 100 mg/5 mL oral liquid 200 mg (10 mL) PO Q6H PRN Cough 01/30/23 #473 mL levofloxacin 500 mg tablet 500 mg PO DAILY 7 days #7 t abs 03/27/23 Allergies Allergy/AdvReac Type Severity Reaction Status Date / Time No Known Allergies (NO KNOWN Allergy Unknown unknown Verified 03/24/25 09:26 ALLERGIES) Review of Systems 2 Review of Systems: Yes all other systems are reviewed and are negative PMFSH Past Medical History Attestation statement: The following information was validated with the patient. Source: old records reviewed and nursing notes reviewed Medical History Hyperlipemia Right inguinal hernia History of CVA (cerebrovascular accident) Surgical History Hx of cholecystectomy History of colonoscopy Family History Family History Father No problems noted. Mother No problems noted. Social History Social History Household Members: None Housing: House Do you presently have visiting nurse or other home services: No Alcohol intake: never Patient Tobacco Use Status: Former Tobacco user Tobacco use type: Cigarette Smoked in Last 30 Days: No Use of substances other than those prescribed or required for medical reasons: No Advance Directives: No Advance Directives Information Provided: Yes Do you have a plan to hurt others: No Plan service: No Physical Exam ED Exam Exam: Appearance: Alert.? Oriented x1 to person not place, time or situation.? No acute distress.? Head: Normocephalic, atraumatic, no step-offs or deformities Eyes: Pupils equal, round and reactive to light.? ENT: Pharynx normal.? Neck: Normal inspection.? Neck supple.? CVS: Normal heart rate and rhythm.? Pulses normal.? Respiratory: No respiratory distress.? Breath sounds diminished b/l .? Abdomen: Soft and nontender.? Skin: Skin warm and dry.? Normal skin color.? Normal skin turgor + stage II pressure sore toe coccyx region Extremities: 1+ non pitting edema to LLE difficult to palpate pulses.? No calf ttp. Global weakness Back: No midline tenderness, no C-spine tenderness, full range of motion, no CVA tenderness bilaterally Neuro: Oriented X 31? No motor deficit.? No sensory deficit. Vital Signs: Vital Signs - 24 hr 03/24/25 09:24 03/24/25 09:29 03/24/25 11:28 Temperature 97.2 F 97.2 F 97.6 F Pulse Rate 106 H 106 H 91 Respiratory Rate 18 18 20 Blood Pressure 136/59 L 136/59 L 142/69 H Pulse Oximetry 99 99 95 Oxygen Delivery Method Nasal Cannula Nasal Cannula Nasal Cannula Oxygen Flow Rate 2 03/24/25 12:20 03/24/25 12:51 Temperature Pulse Rate 102 H Respiratory Rate 15 Blood Pressure 151/67 H 172/84 H Pulse Oximetry 96 Oxygen Delivery Method Room Air Oxygen Flow Rate BMI result Body Mass Index 25.6 vss Course Reevaluation(s) Reevaluation #1: CBC unremarkable. When patient got changed over it was noted that patient had significant swelling to left lower extremity. Palpable pulses dorsalis pedis, anterior tibialis and posterior tibialis pulses equal and bilateral. DVT study ordered to left lower extremity. Per nursing patient was saturating in low 80s EMS also mentioned that they were having trouble getting a reading on patient however they did note 83% on room air. Time: 10:23 Reevaluation #2: Chemistry with elevation in BUN and creatinine I suspect this is in the setting of rhabdomyolysis as patient has a CPK of 7390 he was found down on the ground unclear when he fell. Will order 2 L of normal saline at this time. EKG with sinus rhythm with first-degree AV block and right bundle-branch block, no signs of ischemia nondiagnostic for chief complaint. Troponin and proBNP pending. Urine and imaging still pending. Time: 11:28 Reevaluation #3: Patient's troponin 35.3, EKG nonischemic troponin could be elevated in the setting of demand as patient is hypoxic also patient has kidney injury which could elevate troponin. NT pro BNP 2298 no previous values to compare with he does have some swelling to left lower extremity 1+ nonpitting, lasix ordered. Patient is saturating well on 2-3 L nasal cannula 95%. No indication for CPAP BiPAP He does not wear oxygen at home. . DVT would be ruled out with ultrasound , ultrasound done and pending. Difficult to palpate pulses to lower extremities. CT head, neck, chest, abdomen and pelvis pending at this time. 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 These vessels appear to be patent with monophasic flow seen in the popliteal artery and visualized posterior tibial artery. Common femoral artery is patent was biphasic to monophasic flow. Patient's CT abdomen and pelvis, chest head and cervical spine with no acute traumatic findings. There does appear to be emphysema as well as a 9 mm soft tissue nodule along the lateral aspect of the urinary bladder suspicion for neoplasm patient is far too altered to understand any of this. This should be reiterated upon discharge Medications Administered Discontinued Medications Generic Name Dose Route Start Last Admin Trade Name Freq PRN Reason Stop Dose Admin Furosemide 40 mg 03/24/25 12:10 03/24/25 12:20 Furosemide 40 Mg/4 Ml Vial IVPUSH 03/24/25 12:11 40 mg ONCE ONE Administration Protocol Sodium Chloride 1,000 mls @ 999 mls/hr 03/24/25 11:30 03/24/25 11:31 Ns IV 03/24/25 12:30 999 mls/hr .Q1H1M [place] Administration Sodium Chloride 1,000 mls @ 999 mls/hr 03/24/25 11:30 03/24/25 11:32 Ns IV 03/24/25 12:30 999 mls/hr .Q1H1M [place] Administration Iohexol 100 ml 03/24/25 12:21 03/24/25 12:21 Iohexol 350 Mg/Ml 100 Ml Infus..Btl IV 03/24/25 12:22 85 ml ONCE ONE Administration Medical Decision Making Medical Decision Making [facility] Narrative: 89-year-old male found down in his bathroom for an unclear amount of time. He does not recall falling however poor historian. He would like to leave. He was brought in by EMS after a neighbor called for a well-being check. Physical exam global weakness no evidence of trauma. He does appear intermittently confused and he is only oriented to person not place, time or situation. Diminished b/l. LLE 1+ nonpitting edema Will rule out rhabdomyolysis, electrolyte abnormalities and trauma to head, neck, chest abdomen and pelvis. Will rule out metabolic derangements as well as dysrhythmias. Plan labs, imaging, urine Differential Diagnosis Differential Diagnoses: The differential diagnosis associated with the presentation includes (Will rule out rhabdomyolysis, electrolyte abnormalities and trauma to head, neck, chest abdomen and pelvis. Will rule out metabolic derangements as well as dysrhythmias.) Admission/Observation Consideration of admission/observation: Escalation of care including admission/observation considered Lab Data [facility] Lab Attestation statement: I reviewed the patient's lab results. 03/24/25 11:12 03/24/25 10:08 Labs: Lab Results 03/24/25 03/24/25 03/24/25 Range/Units 10:08 11:12 12:45 WBC 5.2 (4.8-10.8) X10*3/uL RBC 4.93 (4.60-5.80) X10*6/uL Hgb 15.5 (14.0-18.0) g/dl Hct 45.2 (42.0-52.0) % MCV 91.7 (80.0-98.0) fL MCH 31.4 (27.0-33.0) pg MCHC 34.3 (31.0-36.0) g/dl RDW 13.4 (11.0-16.0) % Plt Count 130 L (160-400) X10*3/uL MPV 10.3 (9.4-12.4) fL Immature Gran % (Auto) 0.2 (0.0-0.4) % Neut % (Auto) 79.6 H (45-73) % Lymph % (Auto) 8.5 L (20-40) % [place] % (Auto) 11.5 H (2-11) % Eos % (Auto) 0.0 (0-4) % Baso % (Auto) 0.2 (0-2) % Lymph # (Auto) 0.4 L (1.2-4.9) X10*3/uL [place] # (Auto) 0.6 (0.1-1.2) X10*3/uL Eos # (Auto) 0.0 (0.0-0.4) X10*3/uL Baso # (Auto) 0.0 (0.0-0.2) X10*3/uL Abs Immat Gran (auto) 0.01 (0.00-0.03) X10*3/uL Absolute Neuts (auto) 4.1 (2.0-8.3) x10*3/uL Absolute Nucleated RBC 0.000 (0.0-0.012) X10*3/uL Nucleated RBC % (auto) 0.0 (0.0-0.2) /100WBC Sodium 141 (135-145) mmol/L Potassium 5.1 D (3.3-5.1) mmol/L Chloride 113 H (96-108) mmol/L Carbon Dioxide 17 L (22-29) mmol/L Anion Gap 16 (12-20) BUN 24 H (9-16) mg/dL Creatinine 1.12 (0.5-1.4) mg/dL Estim Creat Clear Calc 41.1 Estimated GFR > 60 Random Glucose 105 (60-115) mg/dL Calcium 9.3 (8.4-10.2) mg/dL Magnesium 2.1 (1.6-2.6) mg/dL Total Bilirubin 0.7 (0.0-1.0) mg/dL AST 224 H (5-37) U/L ALT 57 H (0-40) U/L Alkaline Phosphatase 57 (39-117) U/L Total Creatine Kinase 7390 H (38-174) U/L Troponin I High Sens 35.3 H (<3.5-35.0) ng/L NT-Pro-B Natriuret Pep 2298.1 H (<300) pg/mL Total Protein 6.9 (6.5-8.0) g/dL Albumin 3.9 (3.5-5.0) g/dL Urine Color Yellow Urine Appearance Clear Urine pH 5.5 (5.0-9.0) Ur Specific [place] 1.020 (1.005-1.025) Urine Protein 30 (1+) H (Neg-Trace) mg/dL Urine Glucose (UA) Negative (Negative) mg/dL Urine Ketones 15 (Negative) mg/dL Urine Blood Moderate (2+) H (Negative) Urine Nitrite Negative (Negative) Ur Leukocyte Esterase Negative (Negative) Urine RBC 3-5 H (0-2) /HPF Urine WBC 0-5 (0-5) /HPF Ur Squamous Epith Cells 0-2 (0-2) /HPF Urine Bacteria None Seen (None Seen) Hyaline Casts 0-2 (0-2) /LPF Granular Casts Present Urine Opiates Screen Not Detected (Not Detect) Ur Buprenorphine Scrn Not Detected (Not Detect) ng/mL Ur Oxycodone Screen Not Detected (Not Detect) ng/mL Urine Methadone Screen Not Detected (Not Detect) ng/mL Urine Fentanyl Screen Not Detected (Not Detect) Ur Barbiturates Screen Not Detected (Not Detect) Ur Phencyclidine Scrn Not Detected (Not Detect) Ur Amphetamines Screen Not Detected (Not Detect) U Benzodiazepines Scrn Not Detected (Not Detect) Urine Cocaine Screen Not Detected (Not Detect) U Marijuana (THC) Screen Not Detected (Not Detect) Ethyl Alcohol 13 mg/dL Independent Interpretation I performed an independent interpretation of an: EKG (non diagnostic for chief complaint) and CT Scan Radiology Impression Discussion of test interpretation with radiology: I have reviewed the radiologist's reading. Independent Historian Clinical information obtained from an independent historian. History obtained from or confirmed by: EMS External Record Review External record reviewed: Inpatient record, Office record, Outpatient record, Prior outpatient labs, Prior outpatient radiology, Primary care record and Outside ED record Critical Care Time Critical Care Time Critical Care Time: Yes Total Critical Care Time: 35 Attestation: I attest to this time spent taking care of the patient, obtaining history, physical, reviewing labs, imaging, treatment of patients condition +/- specialist/hospitalist consult +/- procedure Discharge Plan Discharge Clinical Impression: History of CVA (cerebrovascular accident), Altered mental status, Delirium due to general medical condition, Rhabdomyolysis, Fall, CHF (congestive heart failure), Hypoxia, Pressure sore Patient Disposition: Admitted As Inpatient Print Language: [place]
--- NOTE | 2025-03-24 09:45 | PC.NURSE ---
89 M found by neighbor for AMS. A+Ox1 to self, very confused, denies any pain or discomfort. L foot noted to be swollen, csms present. Pt has left side contractures from hx CVA. RR even and unlabored, denies CP or SOB.
[2025-03-24 10:45] LABS: Alanine Aminotransferase 57 U/L (0-40); Albumin Level 3.9 g/dL (3.5-5.0); Alkaline Phosphatase 57 U/L (39-117); Anion Gap 16 (12-20); Aspartate Amino Transferase 224 U/L (5-37); Blood Urea Nitrogen 24 mg/dL (9-16); Calcium 9.3 mg/dL (8.4-10.2); Carbon Dioxide 17 mmol/L (22-29); Chloride 113 mmol/L (96-108); Creatinine Clr Calc Pharmacy 41.1; Estimated Glomerular Filt Rate > 60; Magnesium 2.1 mg/dL (1.6-2.6); Potassium 5.1 mmol/L (3.3-5.1); Sodium 141 mmol/L (135-145); Total Protein 6.9 g/dL (6.5-8.0)
[2025-03-24 11:20] LABS: Hematocrit 45.2 % (42.0-52.0); Hemoglobin 15.5 g/dl (14.0-18.0); Imm Gran Abs Auto 0.01 X10*3/uL (0.00-0.03); Imm Gran Pct Auto 0.2 % (0.0-0.4); Lymphocytes Absolute Auto 0.4 X10*3/uL (1.2-4.9); Mean Corpuscular HGB Conc 34.3 g/dl (31.0-36.0); Mean Corpuscular Hemoglobin 31.4 pg (27.0-33.0); Mean Corpuscular Volume 91.7 fL (80.0-98.0); NRBC Abs Auto 0.000 X10*3/uL (0.0-0.012); NRBC Pct Auto 0.0 /100WBC (0.0-0.2); Platelet Count 130 X10*3/uL (160-400); Red Blood Count 4.93 X10*6/uL (4.60-5.80); White Blood Count 5.2 X10*3/uL (4.8-10.8)
[2025-03-24 12:06] LABS: NT Pro B Type Natriuretic Pept 2298.1 pg/mL (<300); Troponin-I High Sensitivity 35.3 ng/L (<3.5-35.0)
--- NOTE | 2025-03-24 12:15 | PC.NURSE ---
recieved phone call from neighbor Joey Doshi and got ok from patient to provide an update. Pt just coming out of CT at this time, reports pending. Aki is requesting a call-back when we know more at [phone]
[2025-03-24] MEDS: Furosemide 40 MG/4 ML VIAL IVPUSH (12:20)
[2025-03-24] MEDS: iohexoL 350 MG/ML 100 ML INFUS..BTL IV (12:21)
--- NOTE | 2025-03-24 12:43 | PC.NURSE ---
bright red wound aroun 3x3 [place] above buttocks on back noted, provider aware. Cleaned with ns and patted dry. Cushion dressing applied to protect skin.
[2025-03-24 12:53] LABS: Appearance Urine Clear; Glucose Urine UA Negative (Negative); PH 5.5 (5.0-9.0); Specific Gravity - Urine 1.020 (1.005-1.025); UMIC TRIGGER UACC YES
[2025-03-24 13:02] LABS: Cannabinoid Screen Urine Not Detected (Not Detect)
--- NOTE | 2025-03-24 13:25 | HO.NURTONUR ---
89 M presents to ED via EMS with AMS. Per EMS neighbor called 911 because door was open, pt not seen in a few days. Pt was found half naked in the bathroom lyring on the ground, not answering questions correctly. Pt encouraged to come to the hospital but denies any complaints. A+OX1 to self, things its the 1920s. Pt denies any CP or SOB. Pt noted to have L foot swelling, cocyx red ulcer around 3inches in diameter. Wound on back cleaned with NS, patted dry and padded dressing applied. Labs: AST 224, ALT 57, Creatine Kinase 7390, Trop 35.3, BNP 2298.1. Urine: - for UTI. Ethanol 13 and Drug tox negative. Head CT: 1. No acute intracranial abnormality. No fracture evident. 2. Largely stable chronic changes as discussed. Chest CT: 1. No evidence of traumatic injury to the chest, abdomen, or pelvis. 2. 9 mm soft tissue nodule along the left lateral aspect of the urinary bladder, suspicious for neoplasm. Further evaluation with cystoscopy is recommended. 3. Colonic diverticulosis without evidence of diverticulitis. 4. Because mild to moderate emphysema is an independent risk factor for lung cancer, consider entering the patient into a program of yearly lung cancer screening with low dose chest CT. Cerv CT: No evidence of fracture or malalignment of the cervical spine. Degenerative changes. Ab/pelv CT: 1. No evidence of traumatic injury to the chest, abdomen, or pelvis. 2. 9 mm soft tissue nodule along the left lateral aspect of the urinary bladder, suspicious for neoplasm. Further evaluation with cystoscopy is recommended. 3. Colonic diverticulosis without evidence of diverticulitis. 4. Because mild to moderate emphysema is an independent risk factor for lung cancer, consider entering the patient into a program of yearly lung cancer screening with low dose chest CT. Venous Duplex: No evidence of deep venous thrombosis involving the left lower extremity. Severe atherosclerotic disease. No flow is seen in the left superficial femoral artery. Consider further evaluation with lower extremity arterial ultrasound or CTA if clinically warranted. Pending admission
--- NOTE | 2025-03-24 13:27 | PC.NURSE ---
attempted to contact son with number on file, went to voicemail.
--- NOTE | 2025-03-24 13:42 | PC.NURSE ---
Attempted again to get ahold of son from contact number on file, no answer.
--- NOTE | 2025-03-24 14:12 | P.HPHOSP_ITS ---
History of Present Illness Date of Service: 03/24/25 Attending physician on admission: Dilcia Lackey Chief Complaint: fall This is an 89-year-old male with history of hyperlipidemia and previous stroke with residual left-sided weakness who presents to the emergency department after a fall. His neighbor noticed that his door was opened and called 911, the patient was brought to the emergency department for evaluation. In the emergency department brain CT, chest CT, C-spine CT, abdomen and pelvis CT were negative for any acute trauma. CT scan of the abdomen and pelvis did however show a 9 mm soft tissue nodule along the lateral aspect of the bladder concerning for neoplasm. Lab work was significant for metabolic acidosis with a bicarb of 17, and total creatinine kinase of 7390. ProBNP was elevated at 2298 and the patient received a dose of IV Lasix. Tox screen was negative however alcohol level was noted to be 13. Patient adamantly states that he does not drink alcohol and did not drink any alcohol prior to his fall. He is unsure why he fell. He does not remember feeling dizzy. Review of Systems 2 Review of Systems: Yes all other systems are reviewed and are negative Constitutional: Constitutional: Denies chills and Denies fever(s) ENT: Denies dizziness Cardiovascular: Cardiovascular: Denies chest pain and Denies palpitations Neurologic: Denies dizziness Endocrine: Endocrine: Denies palpitations [facility] Medical History Hyperlipemia Right inguinal hernia History of CVA (cerebrovascular accident) Family History Father No problems noted. Mother No problems noted. Surgical History Hx of cholecystectomy History of colonoscopy Social History Household Members: None Housing: House Do you presently have visiting nurse or other home services: No Alcohol intake: never Patient Tobacco Use Status: Former Tobacco user Tobacco use type: Cigarette Smoked in Last 30 Days: No Use of substances other than those prescribed or required for medical reasons: No Advance Directives: No Advance Directives Information Provided: Yes Do you have a plan to hurt others: No Plan service: No Meds Allergies Allergy/AdvReac Type Severity Reaction Status Date / Time No Known Allergies (NO KNOWN Allergy Unknown unknown Verified 03/24/25 09:26 ALLERGIES) Home Medications ?Medication ?Instructions ?Recorded ?Confirmed ?Last Taken ?Type aspirin 81 mg tablet,delayed 81 mg PO DAILY 09/11/21 0 01/26/23 Unknown History release multivitamin 1 tab PO DAILY 01/26/2301/13 Unknown History Physical Exam 2 Vital Signs and Narrative: Vital Signs: Last Vital Signs Temp 97.6 F 03/24/25 11:28 Pulse 102 H 03/24/25 12:51 Resp 15 03/24/25 12:51 BP 172/84 H 03/24/25 12:51 Pulse Ox 96 03/24/25 12:51 O2 Del Method Room Air 03/24/25 12:51 O2 Flow Rate 2 03/24/25 11:28 Oxygen Flow Rate 2 03/24/25 09:24 BMI result Body Mass Index 25.6 Const: General: comfortable, alert and awake Nutritional Appearance: a verage body habitus Orientation/consciousness: patient oriented x3 Resp: Effort & Inspection: normal respiratory effort, able to speak in complete sentences, no respiratory distress and no use of accessory muscles Cardio: Rate: regular rate and tachycardic GI: Inspection: No distended Palpation (GI): Soft to palpation and nontender Neuro: Other: grossly nonfocal; moving all extremities General: patient oriented x3 Results Labs 03/24/25 11:12 03/24/25 10:08 Labs: Laboratory Results - last 24 hr 03/24/25 03/24/25 03/24/25 10:08 11:12 12:45 MCV 91.7 MCH 31.4 MCHC 34.3 RDW 13.4 Plt Count 130 L MPV 10.3 Immature Gran % (Auto) 0.2 Neut % (Auto) 79.6 H Lymph % (Auto) 8.5 L [place] % (Auto) 11.5 H Eos % (Auto) 0.0 Baso % (Auto) 0.2 Lymph # (Auto) 0.4 L [place] # (Auto) 0.6 Eos # (Auto) 0.0 Baso # (Auto) 0.0 Abs Immat Gran (auto) 0.01 Absolute Neuts (auto) 4.1 Absolute Nucleated RBC 0.000 Nucleated RBC % (auto) 0.0 Anion Gap 16 Estim Creat Clear Calc 41.1 Estimated GFR > 60 Random Glucose 105 Calcium 9.3 Magnesium 2.1 Total Bilirubin 0.7 AST 224 H ALT 57 H Alkaline Phosphatase 57 Total Creatine Kinase 7390 H Troponin I High Sens 35.3 H NT-Pro-B Natriuret Pep 2298.1 H Total Protein 6.9 Albumin 3.9 Urine Color Yellow Urine Appearance Clear Urine pH 5.5 Ur Specific [place] 1.020 Urine Protein 30 (1+) H Urine Glucose (UA) Negative Urine Ketones 15 Urine Blood Moderate (2+) H Urine Nitrite Negative Ur Leukocyte Esterase Negative Urine RBC 3-5 H Urine WBC 0-5 Ur Squamous Epith Cells 0-2 Urine Bacteria None Seen Hyaline Casts 0-2 Granular Casts Present Urine Opiates Screen Not Detected Ur Buprenorphine Scrn Not Detected Ur Oxycodone Screen Not Detected Urine Methadone Screen Not Detected Urine Fentanyl Screen Not Detected Ur Barbiturates Screen Not Detected Ur Phencyclidine Scrn Not Detected Ur Amphetamines Screen Not Detected U Benzodiazepines Scrn Not Detected Urine Cocaine Screen Not Detected U Marijuana (THC) Screen Not Detected Ethyl Alcohol 13 Imaging Radiologist's Impressions: Impressions Venous Duplex 03/24/25 11:41 IMPRESSION: No evidence of deep venous thrombosis involving the left lower extremity. Severe atherosclerotic disease. No flow is seen in the left superficial femoral artery. Consider further evaluation with lower extremity arterial ultrasound or CTA if clinically warranted. Electronically signed by: Soraida Faulkner MD 03/24/2025 12:13 PM EDT RP Abdomen/Pelvis CT 03/24/25 12:02 IMPRESSION: 1. No evidence of traumatic injury to the chest, abdomen, or pelvis. 2. 9 mm soft tissue nodule along the left lateral aspect of the urinary bladder, suspicious for neoplasm. Further evaluation with cystoscopy is recommended. 3. Colonic diverticulosis without evidence of diverticulitis. 4. Because mild to moderate emphysema is an independent risk factor for lung cancer, consider entering the patient into a program of yearly lung cancer screening with low dose chest CT. Electronically signed by: Kory Lees MD 03/24/2025 01:02 PM EDT RP Cervical Spine CT 03/24/25 12:02 IMPRESSION: No evidence of fracture or malalignment of the cervical spine. Degenerative changes. Electronically signed by: Soraida Faulkner MD 03/24/2025 01:01 PM EDT RP Chest CT 03/24/25 12:02 IMPRESSION: 1. No evidence of traumatic injury to the chest, abdomen, or pelvis. 2. 9 mm soft tissue nodule along the left lateral aspect of the urinary bladder, suspicious for neoplasm. Further evaluation with cystoscopy is recommended. 3. Colonic diverticulosis without evidence of diverticulitis. 4. Because mild to moderate emphysema is an independent risk factor for lung cancer, consider entering the patient into a program of yearly lung cancer screening with low dose chest CT. Electronically signed by: Kory Lees MD 03/24/2025 01:02 PM EDT RP Head CT 03/24/25 12:02 IMPRESSION: 1. No acute intracranial abnormality. No fracture evident. 2. Largely stable chronic changes as discussed. Electronically signed by: Cash Miranda MD 03/24/2025 12:58 PM EDT RP Assessment and Plan (1) Rhabdomyolysis: Status: Acute (2) Fall: Status: Acute Plan This is an 89-year-old male with history of stroke with residual left-sided weakness, hyperlipidemia who was brought to the emergency department after being found on the floor in his home. Rhabdomyolysis with transaminitis and SAMUEL IVF trend CPK follow LFTs and renal function Fall, unwitnessed Patient can't remember why he fell ? due to etoh will monitor on telemetry to rule out arrhythmia PT eval Alcohol use Patient denies the use of alcohol however his alcohol level was 13 at the time of arrival indicating a much higher level previously No previously documented history of alcohol withdrawal will follow CIWA, no signs of etoh withdrawal at this time Hyperchloremic metabolic acidosis VBG pending follow BMP bladder mass will get urology consult back wound wound care eval Med rec pending at the time of admission. Patient denies taking any medication on a daily basis dvt ppx - heparin Patient will likely require 2 midnight stay in the hospital for management of acute rhabdomyolysis with transaminitis requiring IV fluid and close monitoring as well as PT evaluation for safe disposition Quality Stroke Does the patient have a stroke diagnosis?: No VTE Prior VTE?: No VTE Risk Level:: Medical - moderate - high VTE Device Contraindication: N/A - Device Ordered VTE Drug Contraindication: N/A - Med Ordered
[2025-03-24] MEDS: Lactated Ringers 1,000 ML 100 ML IVCONT (14:35)
--- NOTE | 2025-03-24 15:28 | HO.WOUND ---
Wound Consult: Initial 89yr old male admitted to [facility] [place] [facility] on 03/24/25- See progress notes and H&P for detailed history. Wound consult placed for back/sacrum. Patient agreeable to assessment and photo documentation. Patient found down at home, noted with wound to lower back/sacrum Sacrum Etiology: deep tissue pressure injury Present on Admission Measurements: 4cm x 4cm x 0.1cm Wound Bed: moist deep red central area, intact reddened skin surrounding Drainage / Odor: scant serous no odor Edges: ? Becky wound: ? No Induration, Fluctuance or Warmth noted, mild swelling and redness surrounding, partially blanching partially nonblanching Pain: none Goals of Treatment: ? moist healing and offloading with foam Deep tissue pressure injury: Intact or non intact skin with localized are of non-blanchable deep red, maroon, purple discoloration OR epidermal separation revealing a dark wound bed OR blood filled blister. Pain and temperature changes often precede color changes, can show 48-72 hours later. May resolve without causing ulceration or full thickness skin loss, or it may evolve to reveal actual extent of tissue injury. Pressure injuries sustained from periods of prolonged down time can evolve over several days. continue to monitor resolution/evolution of skin injuries. Recommendations: 1. Turn and Reposition every 2 hours and as needed for patient comfort. Use pillows or wedges to support off loading positions. 2. Off Load all bony prominences with use of pillows and heel boots if needed. Apply Preventative foams where needed. 3. Monitor for incontinence and moisture control, use barrier creams when needed for prevention and treatment. 4. Provide adequate and supplemental nutrition. 5. Order or Continue low air loss mattress. 6. When applicable maintain blood glucose levels per Providers order. Sacrum: Off Load Pressure with Q2 hr turns and use of pillows - Routine cleansing. Apply skin prep allow to dry. Cover with foam dressing to aid in off loading and protection from friction. Change every other day and PRN. Re-consult wound care Nurse for wound deterioration or wound changes.
--- NOTE | 2025-03-24 15:42 | PC.NURSE ---
spoke to son, (contact on file), son sts he is no longer involved in the patients life because his dad cut him out.
--- NOTE | 2025-03-24 16:30 | PC.NURSE ---
Spoke to Zarina (pt family member) after ok from patient. Zarina states she is the health care proxy for the patient. Update provided after getting ok from patient.
--- NOTE | 2025-03-24 19:28 | PC.NURSE ---
this rn assumed care of pt, pt resting in stretcher, no acute distress noted.
--- NOTE | 2025-03-24 19:58 | PHA.MEDREC ---
Addendum entered by Orlin Irwin RPh 03/24/25 20:49: Provider Laly Castillo was made aware of the situation. Original Note: Pharmacy Consult ? Medication Reconciliation Pharmacy has completed the medication reconciliation. Tried to talk to patient but he was not responsive, couldn't give information of meds or caregivers. Pharmacy left voicemail for son in [place] (contact on record) and haven't heard any response (supposedly estranged). Contacted neighbor Karla who checks on patient often and she said he has a son in [place] but doesn't know his name nor contact info. According to nurse's note, patient has a health care proxy named Parvin but there's no phone number (asked pt but he didn't respond). Called preferred [facility] in [place] and retail pharmacy technician confirmed pt hasn't filled any med recently, last fills were for multivitamin and aspirin in july 2024.
[2025-03-25] VITALS (7 sets, daily range): BP systolic 126–152; BP diastolic 63–77; PULSE 84–97; RESP 16–20; TEMP 36.3–37.6; O2SAT 92–98
[2025-03-25] MEDS: Lactated Ringers 1,000 ML 100 ML IVCONT ×3 (00:29→20:06)
[2025-03-25 08:15] LABS: Hematocrit 46.1 % (42.0-52.0); Hemoglobin 15.6 g/dl (14.0-18.0); Mean Corpuscular HGB Conc 33.8 g/dl (31.0-36.0); Mean Corpuscular Hemoglobin 31.4 pg (27.0-33.0); Mean Corpuscular Volume 92.8 fL (80.0-98.0); NRBC Abs Auto 0.000 X10*3/uL (0.0-0.012); NRBC Pct Auto 0.0 /100WBC (0.0-0.2); Platelet Count 136 X10*3/uL (160-400); Red Blood Count 4.97 X10*6/uL (4.60-5.80); White Blood Count 4.0 X10*3/uL (4.8-10.8)
[2025-03-25 08:40] LABS: Magnesium 2.1 mg/dL (1.6-2.6)
[2025-03-25 08:44] LABS: Alanine Aminotransferase 56 U/L (0-40); Albumin Level 3.9 g/dL (3.5-5.0); Alkaline Phosphatase 61 U/L (39-117); Aspartate Amino Transferase 171 U/L (5-37); Blood Urea Nitrogen 24 mg/dL (9-16); Calcium 8.7 mg/dL (8.4-10.2); Creatinine Clr Calc Pharmacy 47.5; Estimated Glomerular Filt Rate > 60; Total Protein 6.6 g/dL (6.5-8.0)
[2025-03-25 08:50] LABS: Anion Gap 12 (12-20); Carbon Dioxide 28 mmol/L (22-29); Chloride 108 mmol/L (96-108); Potassium 3.7 mmol/L (3.3-5.1); Sodium 144 mmol/L (135-145)
--- NOTE | 2025-03-25 11:38 | HO.PM.IMPN ---
Subjective Subjective Date of Service: 03/25/25 Interval History: denies LOC denies EtOH intake not sure why he fell, poor historian Review of Systems Review of Systems: Yes all other systems are reviewed and are negative Physical Exam Vital Signs: Vital Signs: Last Vital Signs Temp 99.5 F 03/25/25 08:00 Pulse 84 03/25/25 08:00 Resp 20 03/25/25 08:00 BP 152/70 H 03/25/25 08:00 Pulse Ox 98 03/25/25 08:00 O2 Del Method Room Air 03/25/25 08:00 O2 Flow Rate 1 03/25/25 04:00 Oxygen Flow Rate 2 03/24/25 09:24 BMI result Body Mass Index 21.3 Gen: in no acute distress HEENT: sclera anicteric, moist mucus membranes Neck: supple Lungs: clear to auscultation bilaterally Heart: regular rate and rhythm, no murmurs Abd: soft, non-tender, non-distended Ext: no edema Skin: warm/well-perfused Neuro: alert and oriented x3, chronic L-sided weakness Psych: appropriate affect Objective Data Active Medications Acetaminophen (Acetaminophen 325 Mg Tablet) 650 mg PO Q6H PRN PRN Reason: Pain, Mild 1-3,fever,headache Calcium Carbonate (Calcium Carbonate 750 Mg Tab.Chew) 750 mg PO Q4H PRN PRN Reason: Heartburn Heparin Sodium (Porcine) (Heparin Sodium,Porcine 5,000 Unit/Ml Vial) 5,000 unit SUBCUT Q12H [facility] Last Admin: 03/25/25 02:45 Dose: 5,000 unit Documented By: CLEVE Lactated Ringer's (Lr) 1,000 mls @ 100 mls/hr IVCONT .Q10H [facility] Last Admin: 03/25/25 10:10 Dose: 100 mls/hr Documented By: RHIANNA Magnesium Hydroxide (Milk Of Magnesia 30 Ml Oral.Susp) 30 ml PO DAILY PRN PRN Reason: Constipation Melatonin (Melatonin 3 Mg Tablet) 6 mg PO BEDTIME PRN PRN Reason: Insomnia Sodium Chloride (0.9 % Sodium Chloride Flush 3 Ml Syringe) 3 ml IVFLUSH QSHIFT [facility] Last Admin: 03/25/25 08:25 Dose: Not Given Documented By: RHIANNA Non-Admin Reason: IV Running Labs 03/25/25 07:39 03/25/25 07:39 Labs: Laboratory Results - last 24 hr 03/24/25 03/24/25 03/24/25 10:08 11:12 12:45 MCV MCH MCHC RDW Plt Count MPV Absolute Nucleated RBC Nucleated RBC % (auto) Anion Gap Estim Creat Clear Calc Estimated GFR Random Glucose Calcium Magnesium Total Bilirubin Direct Bilirubin AST ALT Alkaline Phosphatase Total Creatine Kinase Troponin I High Sens 35.3 H NT-Pro-B Natriuret Pep 2298.1 H Total Protein Albumin Urine Color Yellow Urine Appearance Clear Urine pH 5.5 Ur Specific Ava 1.020 Urine Protein 30 (1+) H Urine Glucose (UA) Negative Urine Ketones 15 Urine Blood Moderate (2+) H Urine Nitrite Negative Ur Leukocyte Esterase Negative Urine RBC 3-5 H Urine WBC 0-5 Ur Squamous Epith Cells 0-2 Urine Bacteria None Seen Hyaline Casts 0-2 Granular Casts Present Urine Opiates Screen Not Detected Ur Buprenorphine Scrn Not Detected Ur Oxycodone Screen Not Detected Urine Methadone Screen Not Detected Urine Fentanyl Screen Not Detected Ur Barbiturates Screen Not Detected Ur Phencyclidine Scrn Not Detected Ur Amphetamines Screen Not Detected U Benzodiazepines Scrn Not Detected Urine Cocaine Screen Not Detected U Marijuana (THC) Screen Not Detected Ethyl Alcohol 13 03/25/25 07:39 MCV 92.8 MCH 31.4 MCHC 33.8 RDW 13.9 Plt Count 136 L MPV 10.6 Absolute Nucleated RBC 0.000 Nucleated RBC % (auto) 0.0 Anion Gap 12 Estim Creat Clear Calc 47.5 Estimated GFR > 60 Random Glucose 93 Calcium 8.7 D Magnesium 2.1 Total Bilirubin 0.5 Direct Bilirubin 0.3 AST 171 H ALT 56 H Alkaline Phosphatase 61 Total Creatine Kinase 3309 H Troponin I High Sens NT-Pro-B Natriuret Pep Total Protein 6.6 Albumin 3.9 Urine Color Urine Appearance Urine pH Ur Specific Ava Urine Protein Urine Glucose (UA) Urine Ketones Urine Blood Urine Nitrite Ur Leukocyte Esterase Urine RBC Urine WBC Ur Squamous Epith Cells Urine Bacteria Hyaline Casts Granular Casts Urine Opiates Screen Ur Buprenorphine Scrn Ur Oxycodone Screen Urine Methadone Screen Urine Fentanyl Screen Ur Barbiturates Screen Ur Phencyclidine Scrn Ur Amphetamines Screen U Benzodiazepines Scrn Urine Cocaine Screen U Marijuana (THC) Screen Ethyl Alcohol Assessment and Plan (1) Rhabdomyolysis: Status: Acute Plan d2, 89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 Apply skin prep allow to dry. Cover with foam dressing to aid in off loading and protection from friction. Change every other day and PRN. EtOH use - pt denies; CIWA prn VTE ppx: UFH dispo: STR In my clinical judgment, the patient requires continued inpatient hospitalization for the following reasons: IV fluids, Urology consult Total time managing care of this patient today: 35 minutes. Quality Stroke Does the patient have a stroke diagnosis?: No VTE Prior VTE?: No VTE Risk Level:: Medical - moderate - high VTE Device Contraindication: N/A - Device Ordered VTE Drug Contraindication: N/A - Med Ordered
--- NOTE | 2025-03-25 15:51 | MHC.CM.PN ---
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
[2025-03-26 03:48] VITALS: BP 145/78; PULSE 91; RESP 20; TEMP 37; O2SAT 93
[2025-03-26] MEDS: Lactated Ringers 1,000 ML 100 ML IVCONT (05:51)
--- NOTE | 2025-03-26 07:18 | P.PNIM_ITS ---
Subjective Subjective Date of Service: 03/26/25 Interval History: Rhabdomyolysis Reports diarrhea Catheter draining dark yellow urine Thrombocytopenia noted-likely secondary to acute stress, without any overt signs of bleed We will likely need SDR eventually Review of Systems Review of Systems: Yes all other systems are reviewed and are negative Physical Exam 2 Exam: Exam: Gen: in no acute distress Lungs: clear to auscultation bilaterally Heart: regular rate and rhythm, no murmurs Abd: soft, non-tender, non-distended Skin: warm/well-perfused Neuro: alert and oriented x3, chronic L-sided weakness Psych: Poor insight Vital Signs: Vital Signs: Last Vital Signs Temp 98.6 F 03/26/25 03:48 Pulse 91 03/26/25 03:48 Resp 20 03/26/25 03:48 BP 145/78 H 03/26/25 03:48 Pulse Ox 93 03/26/25 03:48 O2 Del Method Room Air 03/26/25 03:48 O2 Flow Rate 1 03/25/25 04:00 Oxygen Flow Rate 2 03/24/25 09:24 BMI result Body Mass Index 21.3 Objective Data Active Medications Acetaminophen (Acetaminophen 325 Mg Tablet) 650 mg PO Q6H PRN PRN Reason: Pain, Mild 1-3,fever,headache Calcium Carbonate (Calcium Carbonate 750 Mg Tab.Chew) 750 mg PO Q4H PRN PRN Reason: Heartburn Heparin Sodium (Porcine) (Heparin Sodium,Porcine 5,000 Unit/Ml Vial) 5,000 unit SUBCUT Q12H [facility] Last Admin: 03/26/25 03:28 Dose: 5,000 unit Documented By: CLEVE Lactated Ringer's (Lr) 1,000 mls @ 100 mls/hr IVCONT .Q10H [facility] Last Admin: 03/26/25 05:51 Dose: 100 mls/hr Documented By: CLEVE Magnesium Hydroxide (Milk Of Magnesia 30 Ml Oral.Susp) 30 ml PO DAILY PRN PRN Reason: Constipation Melatonin (Melatonin 3 Mg Tablet) 6 mg PO BEDTIME PRN PRN Reason: Insomnia Sodium Chloride (0.9 % Sodium Chloride Flush 3 Ml Syringe) 3 ml IVFLUSH QSHIFT [facility] Last Admin: 03/25/25 20:05 Dose: Not Given Documented By: CLEVE Non-Admin Reason: IV Running Labs 03/26/25 07:37 03/26/25 07:38 Labs: Laboratory Results - last 24 hr 03/25/25 07:39 MCV 92.8 MCH 31.4 MCHC 33.8 RDW 13.9 Plt Count 136 L MPV 10.6 Absolute Nucleated RBC 0.000 Nucleated RBC % (auto) 0.0 Anion Gap 12 Estim Creat Clear Calc 47.5 Estimated GFR > 60 Random Glucose 93 Calcium 8.7 D Magnesium 2.1 Total Bilirubin 0.5 Direct Bilirubin 0.3 AST 171 H ALT 56 H Alkaline Phosphatase 61 Total Creatine Kinase 3309 H Total Protein 6.6 Albumin 3.9 Assessment and Plan (1) Rhabdomyolysis: Status: Acute Plan d3, 89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 intake Deconditioning High-risk of falls secondary to S UD PTOT ordered We will likely need rehab placement acute nongap metabolic acidosis - resolve after IV fluid hydration bladder mass - 9 mm soft tissue nodule along the left lateral aspect of the urinary bladder, suspicious for neoplasm; urology consulted-likely we will need outpatient cystoscopy sacral deep tissue injury - wound care: Sacrum: Off Load Pressure with Q2 hr turns and use of pillows - Routine cleansing. Apply skin prep allow to dry. Cover with foam dressing to aid in off loading and protection from friction. Change every other day and PRN. EtOH use - pt denies; CIWA prn Addiction med consult VTE ppx: UFH dispo: STR In my clinical judgment, the patient requires continued inpatient hospitalization for the following reasons: We will need placement given decompensation, needs PTOT eval Total time managing care of this patient today: 35 minutes. Quality Stroke Does the patient have a stroke diagnosis?: No VTE Prior VTE?: No VTE Risk Level:: Medical - moderate - high VTE Device Contraindication: N/A - Device Ordered VTE Drug Contraindication: N/A - Med Ordered
[2025-03-26 07:40] VITALS: BP 134/70; PULSE 78; RESP 20; TEMP 37.1; O2SAT 92
[2025-03-26 08:02] LABS: Hematocrit 44.5 % (42.0-52.0); Hemoglobin 14.7 g/dl (14.0-18.0); Mean Corpuscular HGB Conc 33.0 g/dl (31.0-36.0); Mean Corpuscular Hemoglobin 31.0 pg (27.0-33.0); Mean Corpuscular Volume 93.9 fL (80.0-98.0); NRBC Abs Auto 0.000 X10*3/uL (0.0-0.012); NRBC Pct Auto 0.0 /100WBC (0.0-0.2); Red Blood Count 4.74 X10*6/uL (4.60-5.80); White Blood Count 3.4 X10*3/uL (4.8-10.8)
[2025-03-26 08:05] LABS: Platelet Count 96 X10*3/uL (160-400)
[2025-03-26 08:07] LABS: Alanine Aminotransferase 39 U/L (0-40); Albumin Level 3.0 g/dL (3.5-5.0); Alkaline Phosphatase 46 U/L (39-117); Anion Gap 12 (12-20); Aspartate Amino Transferase 118 U/L (5-37); Blood Urea Nitrogen 15 mg/dL (9-16); Calcium 8.1 mg/dL (8.4-10.2); Carbon Dioxide 20 mmol/L (22-29); Chloride 109 mmol/L (96-108); Creatinine Clr Calc Pharmacy 63.6; Estimated Glomerular Filt Rate > 60; Magnesium 1.9 mg/dL (1.6-2.6); Potassium 3.7 mmol/L (3.3-5.1); Sodium 137 mmol/L (135-145); Total Protein 5.7 g/dL (6.5-8.0)
[2025-03-26] MEDS: 0.9 % Sodium Chloride Flush 3 ML SYRINGE IVFLUSH ×3 (09:47→21:05)
[2025-03-26 11:17] VITALS: BP 136/64; PULSE 80; RESP 18; TEMP 36.8; O2SAT 97
--- NOTE | 2025-03-26 12:27 | PM.UROCN ---
History of Present Illness Consult details Consult date: 03/26/25 Narrative: CC: Bladder mass 89-year-old male Brought to emergency department following fall Lives alone, neighbor noticed door open and called 911 Emergency room evaluation head, chest, C-spine, abdomen and pelvis CT reported no acute trauma Small soft tissue nodule within bladder No reported history of gross hematuria Creatinine 0.68, does have microscopic hematuria Laboratory investigations significant for metabolic acidosis. Discussed bladder finding with patient Plan outpatient cystoscopy Review of Systems Constitutional: Constitutional: Reports as per HPI and Reports no additional constitutional complaints Cardiovascular: Cardiovascular: Reports as per HPI and Reports no additional cardiovascular complaints Respiratory: Respiratory: Reports as per HPI and Reports no additional respiratory complaints Gastrointestinal: Gastrointestinal: Reports as per HPI and Reports no additional gastrointestinal complaints Genitourinary: Genitourinary: Reports as per HPI Musculoskeletal: Musculoskeletal: Reports no additional musculoskeletal complaints and Reports as per HPI Neurologic: Reports system reviewed and no additional complaints, except as documented and Reports as per HPI [facility] Past Medical History Medical History Hyperlipemia Right inguinal hernia History of CVA (cerebrovascular accident) Family History Family History Father No problems noted. Mother No problems noted. Surgical History Surgical History Hx of cholecystectomy History of colonoscopy Social History Social History Household Members: None Housing: Apartment Do you presently have visiting nurse or other home services: No Alcohol intake: never Patient Tobacco Use Status: Former Tobacco user Tobacco use type: Cigarette Second Hand Smoke Exposure: No service: No Meds Allergies Allergy/AdvReac Type Severity Reaction Status Date / Time No Known Allergies (NO KNOWN Allergy Unknown unknown Verified 03/24/25 09:26 ALLERGIES) Active Medications: Current Medications Acetaminophen (Acetaminophen 325 Mg Tablet) 650 mg PO Q6H PRN PRN Reason: Pain, Mild 1-3,fever,headache Calcium Carbonate (Calcium Carbonate 750 Mg Tab.Chew) 750 mg PO Q4H PRN PRN Reason: Heartburn Heparin Sodium (Porcine) (Heparin Sodium,Porcine 5,000 Unit/Ml Vial) 5,000 unit SUBCUT Q12H [facility] Last Admin: 03/26/25 03:28 Dose: 5,000 unit Lactated Ringer's (Lr) 1,000 mls @ 100 mls/hr IVCONT .Q10H [facility] Last Admin: 03/26/25 05:51 Dose: 100 mls/hr Magnesium Hydroxide (Milk Of Magnesia 30 Ml Oral.Susp) 30 ml PO DAILY PRN PRN Reason: Constipation Melatonin (Melatonin 3 Mg Tablet) 6 mg PO BEDTIME PRN PRN Reason: Insomnia Sodium Chloride (0.9 % Sodium Chloride Flush 3 Ml Syringe) 3 ml IVFLUSH QSHIFT [facility] Last Admin: 03/26/25 09:47 Dose: 3 ml Home Medications ?Medication ?Instructions ?Recorded ?Confirmed ?Last Taken ?Type Unobtainable 03/24/25 03/24/25 Unknown History Physical Exam Vital Signs: Vital Signs: Last Vital Signs Temp 98.2 F 03/26/25 11:17 Pulse 80 03/26/25 11:17 Resp 18 03/26/25 11:17 BP 136/64 03/26/25 11:17 Pulse Ox 97 03/26/25 11:17 O2 Del Method Room Air 03/26/25 11:17 O2 Flow Rate 1 03/25/25 04:00 Oxygen Flow Rate 2 03/24/25 09:24 BMI result Body Mass Index 21.3 Const: General: cooperative, healthy appearing, comfortable and no acute distress Orientation/consciousness: patient oriented x3 HEENT: Face and sinus: Yes normal facial exam Mouth: moist mucous membranes Neck: Neck: Yes normal visual inspection, Yes full ROM and Yes trachea midline Chest: Chest palpation & inspection: normal inspection of the chest Resp: Effort & Inspection: normal respiratory effort, able to speak in complete sentences and no respiratory distress GI: Inspection: Yes normal to inspection Back/Spine/Pelvis: Cervical Spine: normal cervical lordosis Thoracic/Lumbar Spine: thoracic and lumbar spine normal to inspection Skin: General skin exam: no rashes or lesions noted Neuro: General: patient oriented x3, tone normal and moves all extremities Extrem: General: Yes normal to inspection and Yes capillary refill normal Results Labs 03/26/25 07:37 03/26/25 07:38 Labs: Abnormal lab results 03/26/25 03/26/25 Range/Units 07:37 07:38 WBC 3.4 L (4.8-10.8) X10*3/uL Plt Count 96 L D (160-400) X10*3/uL Chloride 109 H (96-108) mmol/L Carbon Dioxide 20 L (22-29) mmol/L Calcium 8.1 L D (8.4-10.2) mg/dL AST 118 H (5-37) U/L Total Creatine Kinase 1672 H (38-174) U/L Total Protein 5.7 L (6.5-8.0) g/dL Albumin 3.0 L (3.5-5.0) g/dL Short CBC 03/26/25 Range/Units 07:37 WBC 3.4 L (4.8-10.8) X10*3/uL Hgb 14.7 (14.0-18.0) g/dl Hct 44.5 (42.0-52.0) % Plt Count 96 L D (160-400) X10*3/uL BMP 03/26/25 07:38 Sodium 137 Potassium 3.7 Chloride 109 H Carbon Dioxide 20 L BUN 15 Creatinine 0.68 Calcium 8.1 L D Cardiac Enzymes 03/26/25 Range/Units 07:38 Total Creatine Kinase 1672 H (38-174) U/L Liver Function 03/26/25 Range/Units 07:38 Total Bilirubin 0.5 (0.0-1.0) mg/dL AST 118 H (5-37) U/L ALT 39 (0-40) U/L Alkaline Phosphatase 46 (39-117) U/L Albumin 3.0 L (3.5-5.0) g/dL Urine 03/24/25 Range/Units 12:45 Urine Color Yellow Urine Appearance Clear Urine pH 5.5 (5.0-9.0) Ur Specific [place] 1.020 (1.005-1.025) Urine Protein 30 (1+) H (Neg-Trace) mg/dL Urine Glucose (UA) Negative (Negative) mg/dL All other labs normal. Assessment and Plan (1) Bladder mass: Status: Acute Plan Outpatient cystoscopy Procedures Date of Service Date of Service: 03/26/25
[2025-03-26 16:00] VITALS: BP 125/87; PULSE 83; RESP 18; TEMP 37.1; O2SAT 92
[2025-03-26 19:11] VITALS: BP 144/80; PULSE 85; RESP 16; TEMP 37.2; O2SAT 94
[2025-03-27] VITALS (7 sets, daily range): BP systolic 129–160; BP diastolic 64–82; PULSE 78–96; RESP 18–20; TEMP 36.4–38.1; O2SAT 92–97; BMI 21.3
[2025-03-27 06:30] LABS: MANUAL DIFF FLAG NO
[2025-03-27 06:32] LABS: Hematocrit 39.1 % (42.0-52.0); Hemoglobin 13.7 g/dl (14.0-18.0); Imm Gran Abs Auto 0.01 X10*3/uL (0.00-0.03); Imm Gran Pct Auto 0.3 % (0.0-0.4); Lymphocytes Absolute Auto 0.6 X10*3/uL (1.2-4.9); Mean Corpuscular HGB Conc 35.0 g/dl (31.0-36.0); Mean Corpuscular Hemoglobin 31.6 pg (27.0-33.0); Mean Corpuscular Volume 90.1 fL (80.0-98.0); NRBC Abs Auto 0.000 X10*3/uL (0.0-0.012); NRBC Pct Auto 0.0 /100WBC (0.0-0.2); Platelet Count 103 X10*3/uL (160-400); Red Blood Count 4.34 X10*6/uL (4.60-5.80); White Blood Count 2.9 X10*3/uL (4.8-10.8)
[2025-03-27 06:48] LABS: Alanine Aminotransferase 34 U/L (0-40); Albumin Level 3.0 g/dL (3.5-5.0); Alkaline Phosphatase 49 U/L (39-117); Anion Gap 10 (12-20); Aspartate Amino Transferase 80 U/L (5-37); Blood Urea Nitrogen 12 mg/dL (9-16); Calcium 7.9 mg/dL (8.4-10.2); Carbon Dioxide 23 mmol/L (22-29); Chloride 106 mmol/L (96-108); Creatinine Clr Calc Pharmacy 68.6; Estimated Glomerular Filt Rate > 60; Magnesium 1.7 mg/dL (1.6-2.6); Potassium 3.3 mmol/L (3.3-5.1); Sodium 136 mmol/L (135-145); Total Protein 5.4 g/dL (6.5-8.0)
--- NOTE | 2025-03-27 07:17 | HO.PM.IMPN ---
Subjective Subjective Date of Service: 03/27/25 Interval History: Patient was having diarrhea-GI panel negative Awaiting placement , pending PTOT eval Pancytopenia likely secondary to acute hospitalization Review of Systems Review of Systems: Yes all other systems are reviewed and are negative Physical Exam Exam: Exam: Gen: in no acute distress, was sleepy and somnolent, appears deconditioned Lungs: clear to auscultation bilaterally Heart: regular rate and rhythm, no murmurs Abd: soft, non-tender, non-distended Skin: warm/well-perfused Neuro: alert and oriented x3, chronic L-sided weakness Psych: Poor insight Vital Signs: Vital Signs: Last Vital Signs Temp 99 F 03/27/25 05:02 Pulse 96 03/27/25 03:17 Resp 20 03/27/25 03:17 BP 142/68 H 03/27/25 03:17 Pulse Ox 94 03/27/25 03:17 O2 Del Method Room Air 03/27/25 03:17 O2 Flow Rate 1 03/25/25 04:00 Oxygen Flow Rate 2 03/24/25 09:24 BMI result Body Mass Index 21.3 Objective Data Active Medications Acetaminophen (Acetaminophen 325 Mg Tablet) 650 mg PO Q6H PRN PRN Reason: Pain, Mild 1-3,fever,headache Last Admin: 03/27/25 03:57 Dose: 650 mg Documented By: CLEVE Calcium Carbonate (Calcium Carbonate 750 Mg Tab.Chew) 750 mg PO Q4H PRN PRN Reason: Heartburn Heparin Sodium (Porcine) (Heparin Sodium,Porcine 5,000 Unit/Ml Vial) 5,000 unit SUBCUT Q12H [facility] Last Admin: 03/27/25 03:49 Dose: 5,000 unit Documented By: CLEVE Magnesium Hydroxide (Milk Of Magnesia 30 Ml Oral.Susp) 30 ml PO DAILY PRN PRN Reason: Constipation Melatonin (Melatonin 3 Mg Tablet) 6 mg PO BEDTIME PRN PRN Reason: Insomnia Sodium Chloride (0.9 % Sodium Chloride Flush 3 Ml Syringe) 3 ml IVFLUSH QSHIFT [facility] Last Admin: 03/26/25 21:05 Dose: 3 ml Documented By: CLEVE Labs 03/27/25 06:05 03/27/25 06:05 Labs: Laboratory Results - last 24 hr 03/26/25 03/26/2503/27/25 07:37 07:38 06:05 MCV 93.9 90.1 MCH 31.0 31.6 MCHC 33.0 35.0 RDW 13.5 13.2 Plt Count 96 L D 103 L MPV 10.0 10.0 Immature Gran % (Auto) 0.3 Neut % (Auto) 70.4 Lymph % (Auto) 19.3 L [place] % (Auto) 9.7 Eos % (Auto) 0.3 Baso % (Auto) 0.0 Lymph # (Auto) 0.6 L [place] # (Auto) 0.3 Eos # (Auto) 0.0 Baso # (Auto) 0.0 Abs Immat Gran (auto) 0.01 Absolute Neuts (auto) 2.0 Absolute Nucleated RBC 0.000 0.000 Nucleated RBC % (auto) 0.0 0.0 Anion Gap 12 10 L Estim Creat Clear Calc 63.6 68.6 Estimated GFR > 60 > 60 Random Glucose 87 103 Calcium 8.1 L D 7.9 L Magnesium 1.9 1.7 Total Bilirubin 0.5 0.5 AST 118 H 80 H ALT 39 34 Alkaline Phosphatase 46 49 Total Creatine Kinase 1672 H Total Protein 5.7 L 5.4 L Albumin 3.0 L 3.0 L Assessment and Plan (1) Rhabdomyolysis: Status: Acute Plan d3, 89yo M with hx CVA + residual L weakness, found on floor in his house after a fall, no LOC, admitted for rhabdomyolysis improving, currently awaiting placement rhabdomyolysis without renal injury resolved with IV fluids -can DC fluids, CPK downtrending, we will encourage p.o. intake Deconditioning High-risk of falls secondary to S UD PTOT ordered We will likely need rehab placement acute nongap metabolic acidosis - resolve after IV fluid hydration bladder mass - 9 mm soft tissue nodule along the left lateral aspect of the urinary bladder, suspicious for neoplasm; urology consulted-likely we will need outpatient cystoscopy sacral deep tissue injury - wound care: Sacrum: Off Load Pressure with Q2 hr turns and use of pillows - Routine cleansing. Apply skin prep allow to dry. Cover with foam dressing to aid in off loading and protection from friction. Change every other day and PRN. EtOH use - pt denies; CIWA prn Addiction med consult VTE ppx: [facility] dispo: STR based on PTOT recs In my clinical judgment, the patient requires continued inpatient hospitalization for the following reasons: We will need placement given decompensation, needs PTOT eval This note is constructed using voice recognition software. While every effort has been made to ensure accuracy, diamond wheel molder errors may have been included. Total time managing care of this patient today: 35 minutes. Quality Stroke Does the patient have a stroke diagnosis?: No VTE Prior VTE?: No VTE Risk Level:: Medical - moderate - high VTE Device Contraindication: N/A - Device Ordered VTE Drug Contraindication: N/A - Med Ordered
[2025-03-27 09:04] LABS: E. coli EAEC Not Detected (Not Detect.); E. coli EPEC Not Detected (Not Detect.); E. coli ETEC Not Detected (Not Detect.); E. coli STEC Not Detected (Not Detect.); Shigella sp./EIEC Not Detected (Not Detect.)
--- NOTE | 2025-03-27 09:30 | MHC.RECOVRN ---
T/W went to meet with pt. in 457 following consult received for Eval and support r/t AUD. Pt sitting up in bed awake and alert. Per nursing pt. is oriented to self only. Upon meeting with pt I asked why he was here and he could not remember. Upon review of his chart is appears his LFT's are significantly improving with treatment for rhabdo and his CIWA's are low and scoring mostly due to disorientation (which at this point does not appear to be from W/D). Due to pt's mental status along with medical data relating to AUD it appears that consult, education and support is not appropriate at this time and positive UTOX may have possibly been an isolated incident. I let nurse Gloria know that if mentation changes and we are needed to call us back out. No further ACS support needed at this time.
--- NOTE | 2025-03-27 13:59 | MHC.CLN ---
NUTRITION DIET RX: REGULAR. INCREASED NUTRITION RISK DUE TO DTI TO SACRUM. ADDING ENSURE MAX BID TO PROMOTE WOUND HEALING. SUPPLEMENT PROVIDES 300 KCALS, 60 G PROTEIN. PO INTAKE VARIABLE, 25-75%. FOLLOW FOR PO INTAKE AND WOUND HEALING. SEE CLINICAL NUTRITION ASSESSMENT 03/27/25.
[2025-03-27] MEDS: 0.9 % Sodium Chloride Flush 3 ML SYRINGE IVFLUSH (16:23)
[2025-03-28 03:03] VITALS: BP 155/68; PULSE 85; RESP 18; TEMP 36.8; O2SAT 97
[2025-03-28] MEDS: 0.9 % Sodium Chloride Flush 3 ML SYRINGE IVFLUSH ×2 (04:09→15:33)
[2025-03-28 07:16] VITALS: BP 146/66; PULSE 78; RESP 18; TEMP 36.7; O2SAT 94
--- NOTE | 2025-03-28 07:21 | HO.PM.IMPN ---
Subjective Subjective Date of Service: 03/28/25 Interval History: awaiting placement - still no auth as yest was national hol Pt doesnt need tele, can be downgraded Physical Exam Exam: Exam: Gen: in no acute distress, was sleepy and somnolent, appears deconditioned Lungs: clear to auscultation bilaterally Heart: regular rate and rhythm, no murmurs Abd: soft, non-tender, non-distended Skin: warm/well-perfused Neuro: alert and oriented x3, chronic L-sided weakness Psych: Poor insight Vital Signs: Vital Signs: Last Vital Signs Temp 98.0 F 03/28/25 07:16 Pulse 78 03/28/25 07:16 Resp 18 03/28/25 07:16 BP 146/66 H 03/28/25 07:16 Pulse Ox 94 03/28/25 07:16 O2 Del Method Room Air 03/28/25 07:16 O2 Flow Rate 1 03/25/25 04:00 Oxygen Flow Rate 2 03/24/25 09:24 BMI result Body Mass Index 21.3 Objective Data Active Medications Acetaminophen (Acetaminophen 325 Mg Tablet) 650 mg PO Q6H PRN PRN Reason: Pain, Mild 1-3,fever,headache Last Admin: 03/27/25 03:57 Dose: 650 mg Documented By: CLEVE Calcium Carbonate (Calcium Carbonate 750 Mg Tab.Chew) 750 mg PO Q4H PRN PRN Reason: Heartburn Heparin Sodium (Porcine) (Heparin Sodium,Porcine 5,000 Unit/Ml Vial) 5,000 unit SUBCUT Q12H [facility] Last Admin: 03/28/25 04:09 Dose: 5,000 unit Documented By: NANCI Magnesium Hydroxide (Milk Of Magnesia 30 Ml Oral.Susp) 30 ml PO DAILY PRN PRN Reason: Constipation Melatonin (Melatonin 3 Mg Tablet) 6 mg PO BEDTIME PRN PRN Reason: Insomnia Sodium Chloride (0.9 % Sodium Chloride Flush 3 Ml Syringe) 3 ml IVFLUSH QSHIFT [facility] Last Admin: 03/28/25 04:09 Dose: 3 ml Documented By: NANCI Labs 03/28/25 08:24 03/28/25 08:24 Labs: Laboratory Results - last 24 hr 03/26/25 22:25 Stl C. cayetanensis PCR Not Detected Stool Rotavirus A PCR Not Detected Stl Adenov F 40/41 PCR Not Detected Stool Astrovirus (PCR) Not Detected Stool Campylobacter PCR Not Detected Stool Cryptosporidium PCR Not Detected Stl Sh Tox Pr E STEC PCR Not Detected Stool E coli O157 PCR Not applicable Stl Enterotoxigenic E PCR Not Detected Stool EPEC (PCR) Not Detected Stool EAEC (PCR) Not Detected Stl E. histolytica PCR Not Detected Stool Giardia Lamblia PCR Not Detected Stl P. shigelloides PCR Not Detected Stool Salmonella PCR Not Detected Stool Sapovirus (PCR) Not Detected Stl Shigella/EIEC PCR Not Detected St Y.enterocolitica PCR Not Detected Stool Vibrio (PCR) Not Detected Stl Vibrio cholerae PCR Not Detected Stl Norovirus GI/GII PCR Not Detected Assessment and Plan (1) Rhabdomyolysis: Status: Acute Plan d5, 89yo M with hx CVA + residual L weakness, found on floor in his house after a fall, no LOC, admitted for rhabdomyolysis improving, currently awaiting placement rhabdomyolysis 2/2 falll in elderly with unknown downtime without renal injury resolved with IV fluids Deconditioning High-risk of falls secondary to S UD PTOT ordered - pt unable to follow directions - hence will recheck capacity with son Anthony Vera [phone] We will likely need rehab placement acute nongap metabolic acidosis - resolve after IV fluid hydration bladder mass - 9 mm soft tissue nodule along the left lateral aspect of the urinary bladder, suspicious for neoplasm; urology consulted-likely we will need outpatient cystoscopy sacral deep tissue injury - wound care: Sacrum: Off Load Pressure with Q2 hr turns and use of pillows - Routine cleansing. Apply skin prep allow to dry. Cover with foam dressing to aid in off loading and protection from friction. Change every other day and PRN. EtOH use - pt denies; CIWA prn Addiction med consult VTE ppx: [facility] dispo: STR based on PTOT recs - placement challenging as today was the 1st day we have PT services and per their eval , he is not able to follow basic directions and cues. Medically optimized, but will need Placement thus far challenging. In my clinical judgment, the patient requires continued inpatient hospitalization for the following reasons: We will need placement given decompensation, needs PTOT eval This note is constructed using voice recognition software. While every effort has been made to ensure accuracy, deli manager errors may have been included. Total time managing care of this patient today: 35 minutes. Quality Stroke Does the patient have a stroke diagnosis?: No VTE Prior VTE?: No VTE Risk Level:: Medical - moderate - high VTE Device Contraindication: N/A - Device Ordered VTE Drug Contraindication: N/A - Med Ordered
[2025-03-28 08:30] LABS: MANUAL DIFF FLAG NO
[2025-03-28 08:47] LABS: Hematocrit 44.2 % (42.0-52.0); Hemoglobin 15.2 g/dl (14.0-18.0); Imm Gran Abs Auto 0.01 X10*3/uL (0.00-0.03); Imm Gran Pct Auto 0.4 % (0.0-0.4); Lymphocytes Absolute Auto 0.6 X10*3/uL (1.2-4.9); Mean Corpuscular HGB Conc 34.4 g/dl (31.0-36.0); Mean Corpuscular Hemoglobin 31.1 pg (27.0-33.0); Mean Corpuscular Volume 90.4 fL (80.0-98.0); NRBC Abs Auto 0.000 X10*3/uL (0.0-0.012); NRBC Pct Auto 0.0 /100WBC (0.0-0.2); Platelet Count 106 X10*3/uL (160-400); Red Blood Count 4.89 X10*6/uL (4.60-5.80)
[2025-03-28 08:50] LABS: White Blood Count 2.5 X10*3/uL (4.8-10.8)
[2025-03-28 09:05] LABS: Alanine Aminotransferase 42 U/L (0-40); Albumin Level 3.5 g/dL (3.5-5.0); Alkaline Phosphatase 56 U/L (39-117); Anion Gap 13 (12-20); Aspartate Amino Transferase 73 U/L (5-37); Blood Urea Nitrogen 12 mg/dL (9-16); Calcium 8.5 mg/dL (8.4-10.2); Carbon Dioxide 26 mmol/L (22-29); Chloride 104 mmol/L (96-108); Creatinine Clr Calc Pharmacy 63.6; Estimated Glomerular Filt Rate > 60; Magnesium 1.8 mg/dL (1.6-2.6); Potassium 3.8 mmol/L (3.3-5.1); Sodium 139 mmol/L (135-145); Total Protein 6.2 g/dL (6.5-8.0)
[2025-03-28 10:07] VITALS: O2SAT 90
--- NOTE | 2025-03-28 10:43 | MHC.CM.PN ---
Addendum entered by Demetrice Daly RN 03/28/25 15:55: [facility] NOW UNABLE TO OFFER BED, REF EXPANDED AND CM AWAITING BED OFFER. CM ALSO WAITING FOR PT'S FRIEND SONYA TO BRING IN PT'S DURABLE POA/HCP. Addendum entered by Demetrice Daly RN 03/28/25 11:28: PER SON ELÍAS HE IS NOW THE HCP/POA D/T PT HAVING A FALLING OUT W/SON NITIN AND THAT SONYA WAS GOING TO BRING IN A COPY, CM HAS ATTMEMPTED TO CONTACT SONYA VIA NUMBER ON FILE, NO ANSWER AND DETAILED MESSAGE LEFT. Addendum entered by Demetrice Daly RN 03/28/25 11:26: CM CONTACTED PRIMARY CONTACT/SON ELÍAS CALVO [phone] EMAIL [email or web address], IMM TO BE SENT VIA EMAIL PER DISCUSSION, ELÍAS REPORTS PREFERRED SNF WOULD BE [facility] PT'S FRIEND SONYA (NOT [facility]) HAS BEEN VISITING ALMOST DAILY AND LIVES IN [place]. REFERRAL UPDATED AND CM AWAITING BED OFFER. Original Note: CM MET W/PT TO DISCUSS DISPO, P.T. REC'S STR, [facility], PT UNABLE TO GIVE CM A PREFERENCE AND GIVES CM PERMISSION TO SPEAK W/SON/HCP NITIN, CM ATTEMPTED TO CONTACT NITIN AT NUMBER ON HCP, NO ANSWER AND DETAILED MESSAGE LEFT, CM AWAITING CALL BACK AND WILL CALL FOLLOW-UP W/PRIMARY CONTACT.
[2025-03-28 11:15] VITALS: BP 131/60; PULSE 83; RESP 18; TEMP 36.8; O2SAT 95
[2025-03-28 15:39] VITALS: BP 105/60; PULSE 86; RESP 17; TEMP 37.1; O2SAT 97
[2025-03-28 19:38] VITALS: BP 132/59; PULSE 86; RESP 18; TEMP 36.7; O2SAT 95
[2025-03-29] VITALS (7 sets, daily range): BP systolic 108–158; BP diastolic 49–69; PULSE 65–96; RESP 16–20; TEMP 36.4–37.9; O2SAT 93–96
[2025-03-29] MEDS: 0.9 % Sodium Chloride Flush 3 ML SYRINGE IVFLUSH ×3 (05:23→15:33)
--- NOTE | 2025-03-29 07:16 | HO.PM.IMPN ---
Subjective Subjective Date of Service: 03/29/25 Interval History: Anthony Vera [phone] was called in the a.m. of 03/29/2026, and explained to him about his father's current condition. I told him that I am invoked healthcare proxy today as we were not able to assess his physical needs and redirection until physical therapy notified us that he is unable to follow directions. Hence healthcare proxy has been invoked. Patient's son Anthony did mention that he has had significant concern about his father's decline over time and he was not making any sense. Estrada scan on presentation after possibly unwitnessed multiple falls at home likely in the setting of cognitive decline, adult failure to thrive, significant deterioration requiring rehab. However it is challenging as the patient is not able to follow directions. Patient's son did mention that he had to do CPR on 1 of his aunt and broke ribs and it was very painful and did state that he has been very vocal about not wanting aggressive measures like CPR or intubation and hence always wanted his father to be DNR DNI. Son is agreeable for rehab placement for ongoing short-term rehab needs. Hence patient's code status is being changed to DNR DNI , and this was witnessed by the hospitalist staff-Dr. Basurto Review of Systems Review of Systems: Yes Unobtainable due to mental condition and Unobtainable due to mental status Physical Exam Exam: Exam: Gen:[id number], in no acute distress, was sleepy and somnolent, appears very deconditioned, appears bed-bound at baseline Lungs: clear to auscultation bilaterally Heart: regular rate and rhythm, no murmurs Abd: soft, non-tender, non-distended Neuro: alert and oriented x0, chronic L-sided weakness Psych: Poor insight Vital Signs: Vital Signs: Last Vital Signs Temp 98.5 F 03/29/25 07:07 Pulse 65 03/29/25 07:07 Resp 20 03/29/25 07:07 BP 123/58 L 03/29/25 07:07 Pulse Ox 96 03/29/25 07:07 O2 Del Method Room Air 03/29/25 07:07 O2 Flow Rate 1 03/25/25 04:00 Oxygen Flow Rate 2 03/24/25 09:24 BMI result Body Mass Index 21.3 Objective Data Active Medications Acetaminophen (Acetaminophen 325 Mg Tablet) 650 mg PO Q6H PRN PRN Reason: Pain, Mild 1-3,fever,headache Last Admin: 03/27/25 03:57 Dose: 650 mg Documented By: CLEVE Calcium Carbonate (Calcium Carbonate 750 Mg Tab.Chew) 750 mg PO Q4H PRN PRN Reason: Heartburn Heparin Sodium (Porcine) (Heparin Sodium,Porcine 5,000 Unit/Ml Vial) 5,000 unit SUBCUT Q12H [facility] Last Admin: 03/29/25 05:23 Dose: 5,000 unit Documented By: NANCI Magnesium Hydroxide (Milk Of Magnesia 30 Ml Oral.Susp) 30 ml PO DAILY PRN PRN Reason: Constipation Melatonin (Melatonin 3 Mg Tablet) 6 mg PO BEDTIME PRN PRN Reason: Insomnia Sodium Chloride (0.9 % Sodium Chloride Flush 3 Ml Syringe) 3 ml IVFLUSH QSHIFT [facility] Last Admin: 03/29/25 05:23 Dose: 3 ml Documented By: NANCI Labs 03/29/25 07:45 03/29/25 07:45 Labs: Laboratory Results - last 24 hr 03/28/25 08:24 MCV 90.4 MCH 31.1 MCHC 34.4 RDW 13.3 Plt Count 106 L MPV 10.4 Immature Gran % (Auto) 0.4 Neut % (Auto) 64.2 Lymph % (Auto) 23.6 [place] % (Auto) 9.8 Eos % (Auto) 1.6 Baso % (Auto) 0.4 Lymph # (Auto) 0.6 L [place] # (Auto) 0.3 Eos # (Auto) 0.0 Baso # (Auto) 0.0 Abs Immat Gran (auto) 0.01 Absolute Neuts (auto) 1.6 L Absolute Nucleated RBC 0.000 Nucleated RBC % (auto) 0.0 ESR 16 H Anion Gap 13 Estim Creat Clear Calc 63.6 Estimated GFR > 60 Random Glucose 96 Calcium 8.5 D Magnesium 1.8 Total Bilirubin 0.6 AST 73 H ALT 42 H Alkaline Phosphatase 56 C-Reactive Protein 4.76 H Total Protein 6.2 L Albumin 3.5 Assessment and Plan (1) Fall: Status: Acute Plan Pt is a 89-year-old male with a significant past medical history of cerebrovascular accident (CVA) with baseline left residual weakness who BIBA after an unwitnessed traumatic fall with unknown downtime with significant frailty in elderly, adult failure to thrive sustaining rhabdomyolysis with resolution with IV fluids.. History is limited as it was unwitnessed and the patient lives alone and was found by the neighbor. Healthcare proxy- was called in the a.m. of 03/29/2026 and HCP invoked. Awaiting placement likely to happen tomorrow Rhabdomyolysis, NAGMA normalization post IV fluids Frailty in elderly, adult failure to thrive, prior substance use history alcohol-PTOT, SDR recommended, patient unable to follow basic directions CVA history-patient not a candidate for anticoagulation given recurrent falls in elderly bladder mass - 9 mm soft tissue nodule along the left lateral aspect of the urinary bladder, suspicious for neoplasm; urology consulted-likely we will need outpatient cystoscopy sacral deep tissue injury-present on admission - wound care: Sacrum: Off Load Pressure with Q2 hr turns and use of pillows - Routine cleansing. Apply skin prep allow to dry. Cover with foam dressing to aid in off loading and protection from friction. Change every other day and PRN. History of S UD-denied any current ongoing substance use, BAL negative, screen negative. VTE ppx: [facility] dispo: STR based on PTOT recs - placement challenging as yesterday was the 1st day we have PT services and per their eval , he is not able to follow basic directions and cues. Medically optimized, but will need Placement thus far challenging. In my clinical judgment, the patient requires continued inpatient hospitalization for the following reasons: We will need placement given decompensation, needs PTOT eval This note is constructed using voice recognition software. While every effort has been made to ensure accuracy, coremaker supervisor errors may have been included. HCP invoked Anthony Vera [phone] Code status DNR DNI Total time managing care of this patient today: 35 minutes. This note is constructed using voice recognition software. While every effort has been made to ensure accuracy, coremaker supervisor errors may have been included. Quality Stroke Does the patient have a stroke diagnosis?: No VTE Prior VTE?: No VTE Risk Level:: Medical - moderate - high VTE Device Contraindication: N/A - Device Ordered VTE Drug Contraindication: N/A - Med Ordered
[2025-03-29 08:07] LABS: MANUAL DIFF FLAG NO
[2025-03-29 08:11] LABS: Hematocrit 42.9 % (42.0-52.0); Hemoglobin 15.1 g/dl (14.0-18.0); Imm Gran Abs Auto 0.01 X10*3/uL (0.00-0.03); Imm Gran Pct Auto 0.4 % (0.0-0.4); Lymphocytes Absolute Auto 0.6 X10*3/uL (1.2-4.9); Mean Corpuscular HGB Conc 35.2 g/dl (31.0-36.0); Mean Corpuscular Hemoglobin 31.6 pg (27.0-33.0); Mean Corpuscular Volume 89.7 fL (80.0-98.0); NRBC Abs Auto 0.000 X10*3/uL (0.0-0.012); NRBC Pct Auto 0.0 /100WBC (0.0-0.2); Platelet Count 113 X10*3/uL (160-400); Red Blood Count 4.78 X10*6/uL (4.60-5.80); White Blood Count 2.7 X10*3/uL (4.8-10.8)
[2025-03-29 08:42] LABS: Alanine Aminotransferase 35 U/L (0-40); Albumin Level 3.4 g/dL (3.5-5.0); Alkaline Phosphatase 58 U/L (39-117); Anion Gap 10 (12-20); Aspartate Amino Transferase 58 U/L (5-37); Blood Urea Nitrogen 13 mg/dL (9-16); Calcium 8.6 mg/dL (8.4-10.2); Carbon Dioxide 27 mmol/L (22-29); Chloride 105 mmol/L (96-108); Creatinine Clr Calc Pharmacy 59.2; Estimated Glomerular Filt Rate > 60; Magnesium 2.0 mg/dL (1.6-2.6); Potassium 4.2 mmol/L (3.3-5.1); Sodium 138 mmol/L (135-145); Total Protein 6.2 g/dL (6.5-8.0)
--- NOTE | 2025-03-29 10:39 | HO.HCP_ITS ---
Health Care Proxy Invocation Health Care Proxy Declaration: I, , on the date cited below, have determined that, ___García Vera , lacks the capacity to make or communicate, informed health care decision. This determination is made in accordance with accepted standards of medical judgment and pursuant to [place], the [facility] Care Proxy Law. The cause, nature, extent and probable duration of the patient's inapacity are described below: Cause: Gradual cognitive decline, dementia Nature: Natural Extent: Indefinite Probable Duration of Patient's Incapacity: Indefinite
--- NOTE | 2025-03-29 10:39 | P.ACPN_ITS ---
Advanced Care Planning Note Advanced Care Planning Note Discussed with: family member(s) Time spent (in minutes): 35 Narrative: Pt is a 89-year-old male with a significant past medical history of cerebrovascular accident (CVA), who is currently presenting with advanced cognitive decline. The patient was brought to the emergency department after being found by EMS on the bathroom floor, disoriented and intermittently responsive. He is only oriented to person and is unable to provide reliable information regarding his current situation, recent events, or medical history. He does not recall the circumstances leading to his presentation and is unable to demonstrate understanding of his medical condition or the need for evaluation and treatment. Given his profound disorientation, inability to participate meaningfully in medical decision-making, and lack of capacity to understand or appreciate the consequences of his choices, I have determined that he lacks the capacity to make informed healthcare decisions at this time. Therefore, I am invoking his he althcare proxy to ensure that decisions regarding his care are made in his best interest. Anthony Vera [phone] was called in the a.m. of 03/29/2026, and explained to him about his father's current condition. I told him that I am invoked healthcare proxy today as we were not able to assess his physical needs and redirection until physical therapy notified us that he is unable to follow directions. Hence healthcare proxy has been invoked. Patient's son Anthony did mention that he has had significant concern about his father's decline over time and he was not making any sense. Estrada scan on presentation after possibly unwitnessed multiple falls at home likely in the setting of cognitive decline, adult failure to thrive, significant deterioration requiring rehab. However it is challenging as the patient is not able to follow directions. Patient's son did mention that he had to do CPR on 1 of his aunt and broke ribs and it was very painful and did state that he has been very vocal about not wanting aggressive measures like CPR or intubation and hence always wanted his father to be DNR DNI. Son is agreeable for rehab placement for ongoing short- term rehab needs. Hence patient's code status is being changed to DNR DNI , and this was witnessed by the hospitalist staff-Dr. Basurto This note is constructed using voice recognition software. While every effort has been made to ensure accuracy, ophthalmic medical technician errors may have been included. Problems Discussed (1) Rhabdomyolysis:
--- NOTE | 2025-03-29 10:50 | MHC.CM.PN ---
Addendum entered by Dolores Wall 03/29/25 10:51: Per MD in ROUNDS, HCP will be invoked today. Original Note: IZAIAH has asked Luis @ [facility] to initiate insurance auth. IZAIAH will continue to follow.
--- NOTE | 2025-03-29 11:27 | MHC.CLN ---
F/U PT WITH INCREASED NUTRITION RISK DUE TO PRESSURE INJURY PO INTAKE VARIABLE CONSUMING 25-75% DIET RX: REGULAR PT RECEIVING ENSURE MAX BID TO PROMOTE WOUND HEALING SUPPLEMENT PROVIDES 300 KCALS, 60 G PROTEIN MONITOR PO INTAKE AND ENCOURAGE SUPPLEMENT
--- NOTE | 2025-03-29 15:35 | HO.WOUND ---
Addendum entered by Judie Ewing RN 03/30/25 09:41: 03/30/25 @ 0941 Direct care team able to obtain Low Air Loss Mattress now in place, Waffle cushion in use, patient up to chair with PT. Foam dressing in place. Advised to limit sit times due to sacral wound. Original Note: Wound Consult: Follow up 89yr old male admitted to [facility] on 03/24/25- See progress notes and H&P for detailed history. Wound consult follow up for back/sacrum. Patient agreeable to assessment and photo documentation. Patient was in recliner chair with waffle cushion report tenderness to buttock - advised staff to limit uninterrupted sit time to 1hr. Of note patient found down at home, noted with wound to lower back/sacrum. Sacrum 03/24/25 Sacrum 03/29/25 Sacrum 03/29/25 Etiology: deep tissue pressure injury in evolution Present on Admission Measurements: 4cm x 8cm x 0.2cm Wound Bed: moist deep red, central area with adherent slough Drainage / Odor: scant serous no odor Edges: ? improving attached Becky wound: ?inproving periwound No Induration, Fluctuance or Warmth noted Pain: pain reported by patient Goals of Treatment: ? moist healing and offloading with foam No new topical recommendations needed at this time continue current orders for foam Triad and off loading Deep tissue pressure injury: Intact or non intact skin with localized are of non-blanchable deep red, maroon, purple discoloration OR epidermal separation revealing a dark wound bed OR blood filled blister. Pain and temperature changes often precede color changes, can show 48-72 hours later. May resolve without causing ulceration or full thickness skin loss, or it may evolve to reveal actual extent of tissue injury. Pressure injuries sustained from periods of prolonged down time can evolve over several days. continue to monitor resolution/evolution of skin injuries. Recommendations: 1. Turn and Reposition every 2 hours and as needed for patient comfort. Use pillows or wedges to support off loading positions. 2. Off Load all bony prominences with use of pillows and heel boots if needed. Apply Preventative foams where needed. 3. Monitor for incontinence and moisture control, use barrier creams when needed for prevention and treatment. 4. Provide adequate and supplemental nutrition. 5. Order or Continue low air loss mattress. 6. When applicable maintain blood glucose levels per Providers order. Sacrum: Off Load Pressure with Q2 hr turns and use of pillows - Routine cleansing. Apply skin prep allow to dry. Cover with foam dressing to aid in off loading and protection from friction. Change every other day and PRN. Re-consult wound care Nurse for wound deterioration or wound changes.
[2025-03-30 03:23] VITALS: BP 125/74; PULSE 86; RESP 18; TEMP 37; O2SAT 93
[2025-03-30] MEDS: 0.9 % Sodium Chloride Flush 3 ML SYRINGE IVFLUSH ×2 (03:34→09:13)
[2025-03-30 05:59] LABS: MANUAL DIFF FLAG NO
[2025-03-30 06:04] LABS: Hematocrit 38.7 % (42.0-52.0); Hemoglobin 13.6 g/dl (14.0-18.0); Imm Gran Abs Auto 0.02 X10*3/uL (0.00-0.03); Imm Gran Pct Auto 0.6 % (0.0-0.4); Lymphocytes Absolute Auto 0.7 X10*3/uL (1.2-4.9); Mean Corpuscular HGB Conc 35.1 g/dl (31.0-36.0); Mean Corpuscular Hemoglobin 31.3 pg (27.0-33.0); Mean Corpuscular Volume 89.2 fL (80.0-98.0); NRBC Abs Auto 0.000 X10*3/uL (0.0-0.012); NRBC Pct Auto 0.0 /100WBC (0.0-0.2); Platelet Count 132 X10*3/uL (160-400); Red Blood Count 4.34 X10*6/uL (4.60-5.80); White Blood Count 3.6 X10*3/uL (4.8-10.8)
[2025-03-30 06:29] LABS: Alanine Aminotransferase 30 U/L (0-40); Albumin Level 3.2 g/dL (3.5-5.0); Alkaline Phosphatase 59 U/L (39-117); Anion Gap 12 (12-20); Aspartate Amino Transferase 44 U/L (5-37); Blood Urea Nitrogen 17 mg/dL (9-16); Calcium 8.3 mg/dL (8.4-10.2); Carbon Dioxide 23 mmol/L (22-29); Chloride 107 mmol/L (96-108); Creatinine Clr Calc Pharmacy 56.1; Estimated Glomerular Filt Rate > 60; Magnesium 2.0 mg/dL (1.6-2.6); Potassium 3.8 mmol/L (3.3-5.1); Sodium 138 mmol/L (135-145); Total Protein 5.7 g/dL (6.5-8.0)
--- NOTE | 2025-03-30 07:11 | HO.PM.IMPN ---
Subjective Subjective Date of Service: 03/30/25 Physical Exam Vital Signs: Vital Signs: Last Vital Signs Temp 98.6 F 03/30/25 03:23 Pulse 86 03/30/25 03:23 Resp 18 03/30/25 03:23 BP 125/74 03/30/25 03:23 Pulse Ox 93 03/30/25 03:23 O2 Del Method Room Air 03/30/25 03:23 O2 Flow Rate 1 03/25/25 04:00 Oxygen Flow Rate 2 03/24/25 09:24 BMI result Body Mass Index 21.3 Objective Data Active Medications Acetaminophen (Acetaminophen 325 Mg Tablet) 650 mg PO Q6H PRN PRN Reason: Pain, Mild 1-3,fever,headache Last Admin: 03/27/25 03:57 Dose: 650 mg Documented By: CLEVE Calcium Carbonate (Calcium Carbonate 750 Mg Tab.Chew) 750 mg PO Q4H PRN PRN Reason: Heartburn Heparin Sodium (Porcine) (Heparin Sodium,Porcine 5,000 Unit/Ml Vial) 5,000 unit SUBCUT Q12H [facility] Last Admin: 03/30/25 03:33 Dose: 5,000 unit Documented By: DARIUSZ Magnesium Hydroxide (Milk Of Magnesia 30 Ml Oral.Susp) 30 ml PO DAILY PRN PRN Reason: Constipation Melatonin (Melatonin 3 Mg Tablet) 6 mg PO BEDTIME PRN PRN Reason: Insomnia Sodium Chloride (0.9 % Sodium Chloride Flush 3 Ml Syringe) 3 ml IVFLUSH QSHIFT [facility] Last Admin: 03/30/25 03:34 Dose: 3 ml Documented By: DARIUSZ Labs 03/30/25 05:43 03/30/25 05:43 Labs: Laboratory Results - last 24 hr 03/29/25 03/30/25 07:45 05:43 MCV 89.7 89.2 MCH 31.6 31.3 MCHC 35.2 35.1 RDW 13.3 13.2 Plt Count 113 L 132 L MPV 9.8 10.0 Immature Gran % (Auto) 0.4 0.6 H Neut % (Auto) 66.0 67.7 Lymph % (Auto) 22.4 19.0 L [place] % (Auto) 9.3 11.6 H Eos % (Auto) 1.5 0.8 Baso % (Auto) 0.4 0.3 Lymph # (Auto) 0.6 L 0.7 L [place] # (Auto) 0.3 0.4 Eos # (Auto) 0.0 0.0 Baso # (Auto) 0.0 0.0 Abs Immat Gran (auto) 0.01 0.02 Absolute Neuts (auto) 1.8 L 2.5 Absolute Nucleated RBC 0.000 0.000 Nucleated RBC % (auto) 0.0 0.0 Anion Gap 10 L 12 Estim Creat Clear Calc 59.2 56.1 Estimated GFR > 60 > 60 Random Glucose 97 102 Calcium 8.6 8.3 L Magnesium 2.0 2.0 Total Bilirubin 0.7 0.8 AST 58 H 44 H ALT 35 30 Alkaline Phosphatase 58 59 Total Protein 6.2 L 5.7 L Albumin 3.4 L 3.2 L Quality Stroke Does the patient have a stroke diagnosis?: No VTE Prior VTE?: No VTE Risk Level:: Medical - moderate - high VTE Device Contraindication: N/A - Device Ordered VTE Drug Contraindication: N/A - Med Ordered
[2025-03-30 07:15] VITALS: BP 126/80; PULSE 80; RESP 18; TEMP 37.2; O2SAT 94
--- NOTE | 2025-03-30 09:45 | MHC.CM.PN ---
IMM 03/30/25, PT MEDICALLY CLEARED FOR DC TO STR AT [facility] FOR BLS TRANSPORT AT 1:30PM
--- NOTE | 2025-03-30 10:03 | P.DS_ITS ---
DS: Providers Provider Date of Service: 03/30/25 Date of admission: 03/24/25 13:40 Date of discharge: 03/30/25 Primary care physician: Aydee Ferguson MD Consults: 03/24/25 14:10 Consult to Urology Routine Consulting Provider: [facility] Reason for consultation: bladder mass Has provider been notified: No 03/24/25 14:23 Consult to Wound Care Routine Reason for consultation: back wound DS: Diagnosis Discharge Diagnosis (1) Fall: Status: Acute DS: Summary Hospital Course Hospital Course: Rhabdomyolysis, NAGMA normalization post IV fluids Falls in elderly Frailty in elderly, adult failure to thrive, prior substance use history alcohol-PTOT, SDR recommended, patient unable to follow basic directions Pt is a 89-year-old male with a significant past medical history of cerebrovascular accident (CVA) with baseline left residual weakness who BIBA after an unwitnessed traumatic fall with unknown downtime with significant frailty in elderly, adult failure to thrive sustaining rhabdomyolysis with resolution with IV fluids.. History is limited as it was unwitnessed and the patient lives alone and was found by the neighbor. Healthcare proxy- was called in the a.m. of 03/29/2026 and HCP invoked. CVA history-patient not a candidate for anticoagulation given recurrent falls in elderly and inability to handle his home meds bladder mass - 9 mm soft tissue nodule along the left lateral aspect of the urinary bladder, suspicious for neoplasm; urology consulted-likely we will need outpatient cystoscopy sacral deep tissue injury-present on admission - wound care: Sacrum: Off Load Pressure with Q2 hr turns and use of pillows - Routine cleansing. Apply skin prep allow to dry. Cover with foam dressing to aid in off loading and protection from friction. Change every other day and PRN. History of S UD-denied any current ongoing substance use, BAL negative, screen negative. VTE ppx: UFH dispo: STR based on PTOT recs - STR HCP invoked Anthony Vera [phone] Code status DNR DNI Total time managing care of this patient today: 35 minutes. This note is constructed using voice recognition software. While every effort has been made to ensure accuracy, heavy forger helper errors may have been included. Time spent discussing smoking cessation with patient: more than 10 minutes Status at Discharge Functional status at discharge: bed bound Overall status at discharge: patient is progressing back to baseline Time Attestation Discharge Coordination Time (in mins): 35 Quality: Safe Use of Opioids Does Pt have an Active Cancer Diagnosis on the Problem List?: No Quality: Stroke Does the patient have a stroke diagnosis?: No Physical Exam Vital Signs: Vital Signs: Last Vital Signs Temp 98.9 F 03/30/25 07:15 Pulse 80 03/30/25 07:15 Resp 18 03/30/25 07:15 BP 126/80 03/30/25 07:15 Pulse Ox 94 03/30/25 07:15 O2 Del Method Room Air 03/30/25 07:15 O2 Flow Rate 1 03/25/25 04:00 Oxygen Flow Rate 2 03/24/25 09:24 BMI result Body Mass Index 21.3 DS: Data Data Completed and Pending Labs on day of discharge: Laboratory Results - last 24 hr 03/30/25 05:43 WBC 3.6 L RBC 4.34 L Hgb 13.6 L Hct 38.7 L MCV 89.2 MCH 31.3 MCHC 35.1 RDW 13.2 Plt Count 132 L MPV 10.0 Immature Gran % (Auto) 0.6 H Neut % (Auto) 67.7 Lymph % (Auto) 19.0 L [place] % (Auto) 11.6 H Eos % (Auto) 0.8 Baso % (Auto) 0.3 Lymph # (Auto) 0.7 L [place] # (Auto) 0.4 Eos # (Auto) 0.0 Baso # (Auto) 0.0 Abs Immat Gran (auto) 0.02 Absolute Neuts (auto) 2.5 Absolute Nucleated RBC 0.000 Nucleated RBC % (auto) 0.0 Sodium 138 Potassium 3.8 Chloride 107 Carbon Dioxide 23 Anion Gap 12 BUN 17 H Creatinine 0.77 Estim Creat Clear Calc 56.1 Estimated GFR > 60 Random Glucose 102 Calcium 8.3 L Magnesium 2.0 Total Bilirubin 0.8 AST 44 H ALT 30 Alkaline Phosphatase 59 Total Protein 5.7 L Albumin 3.2 L Discharge Plan Discharge Anticipated Discharge Date/Time: 03/30/25 10:14 Patient Disposition: Xfer SNF Discharge Diagnosis: FAll in elderly 2/2 fraility and unsteady gait Referrals: [facility] [Other] - 1 Week Referral Note: SHORT TERM REHAB Aydee Ferguson MD [Primary Care Provider, Medical] - 1 Week Discharge Medications: Continued Unobtainable Discharge Orders: Discharge Order (Routine); Ordered 03/30/25 Ordered By: Pallavi Vazquez Diet: Advance to usual diet Activity on Discharge: As tolerated Stand Alone Forms: Patient Portal Discharge page Print Language: Tajik Care Plan Goals: PT/OT Gait stability Health Concerns: see above Plan of Treatment: see above Assessment: see above
[2025-03-30 11:18] VITALS: BP 102/48; PULSE 91; RESP 18; TEMP 36.3; O2SAT 97
[2025-04-04 19:53] LABS: Calprotectin, Fecal 364 mcg/g
== END 2025-03-30 13:50 | disposition skilled nursing facility (03) | DRG 558 ==
LOC: HO.ED 11:29 → HO.EDOVER 13:40 → HO.IMC 19:41
PROVIDERS: Family Medicine; Physician Assistant; Admitting Provider Physician Assistant Medical; Emergency Provider Emergency Medicine Emergency Medical Services; PCP Internal Medicine; Visit Provider Student in an Organized Health Care Education/Training Program
DX: M62.82 Rhabdomyolysis (principal); E87.21 Acute metabolic acidosis; D61.818 Other pancytopenia; I69.354 Hemiplegia and hemiparesis following cerebral infarction affecting left non-dominant side; N17.9 Acute kidney failure, unspecified; R53.81 Other malaise; Z66 Do not resuscitate; D41.4 Neoplasm of uncertain behavior of bladder; W19.XXXA Unspecified fall, initial encounter; F10.90 Alcohol use, unspecified, uncomplicated; Y90.0 Blood alcohol level of less than 20 mg/100 ml; L89.156 Pressure-induced deep tissue damage of sacral region; Z75.1 Person awaiting admission to adequate facility elsewhere; Z87.891 Personal history of nicotine dependence; Z79.82 Long term (current) use of aspirin
CPT/HCPCS: 36415; 70450; 71260; 72125; 74177; 80048; 80053; 80076; 80307; 81001; 82550; 83735; 83880; 83993; 84484; 85025; 85027; 85652; 86140; 87507; 93005; 93971; 97162; 97166; 97530; 99285; J1644; J1938; J7120; Q9967

== ENCOUNTER → 2025-03-24 09:19 | Outpatient (BNV) | payer MEDICARE, SELFPAY | PROVIDERS: Emergency Provider Emergency Medicine Emergency Medical Services; PCP Internal Medicine; Visit Provider Internal Medicine Cardiovascular Disease | DX: I44.0 Atrioventricular block, first degree (principal); I45.10 Unspecified right bundle-branch block | CPT/HCPCS: 93010 ==

== ENCOUNTER → 2025-03-24 10:22 | Outpatient (BNV) | payer MEDICARE, SELFPAY | PROVIDERS: Emergency Provider Emergency Medicine Emergency Medical Services; PCP Internal Medicine; Visit Provider Radiology Diagnostic Radiology | DX: K57.30 Diverticulosis of large intestine without perforation or abscess without bleeding (principal); J43.9 Emphysema, unspecified; N32.89 Other specified disorders of bladder; M54.2 Cervicalgia; R41.82 Altered mental status, unspecified; I70.202 Unspecified atherosclerosis of native arteries of extremities, left leg; S29.9XXA Unspecified injury of thorax, initial encounter; W19.XXXA Unspecified fall, initial encounter | CPT/HCPCS: 70450; 71260; 72125; 74177; 93971 ==

== ENCOUNTER → 2025-03-24 13:40 | Outpatient (BNV) | payer MEDICARE, SELFPAY | PROVIDERS: Admitting Provider Physician Assistant Medical; Emergency Provider Emergency Medicine Emergency Medical Services; PCP Internal Medicine; Visit Provider Urology | DX: N32.89 Other specified disorders of bladder (principal) | CPT/HCPCS: 99222 ==

== ENCOUNTER → 2025-03-24 13:40 | Outpatient (BNV) | payer MEDICARE, SELFPAY | PROVIDERS: Admitting Provider Physician Assistant Medical; Emergency Provider Emergency Medicine Emergency Medical Services; PCP Internal Medicine; Visit Provider Physician Assistant Medical | DX: M62.82 Rhabdomyolysis (principal) | CPT/HCPCS: 99223; 99232 ==